=== PATIENT | male | born 1945 | race Caucasian/White ===

== ENCOUNTER 2017-01-22 14:38 | Inpatient (IN) | payer MEDICARE ==
[2017-01-22 16:03] LABS: #Eosinphils 0.2 thou/uL (0.0-0.7); #Lymphocytes 1.7 thou/uL (1.20-3.40); #Monocytes 0.7 thou/uL (0.11-0.59); #Neutrophils 15.7 thou/uL (1.40-6.50); %Basophils 0.1 % (0.0-1.0); %Lymphocytes 9.2 % (21.0-51.0); %Monocytes 3.7 % (0.0-10.0); Hematocrit 40.7 % (42.0-52.0); Mean Platelet Volume 7.1 fL (7.4-10.4); Red Blood Cell (RBC) Count 4.33 mill/uL (4.70-6.10); White Blood Cell (WBC) Count 18.2 thou/uL (4.8-10.8)
--- NOTE | 2017-01-22 16:03 | RAD ---
PORTABLE UPRIGHT FRONTAL CHEST RADIOGRAPH: 01/22/2017 COMPARISON: 05/06/2016 HISTORY: Right-sided chest pain. FINDINGS: Cardiac silhouette is prominent, a stable finding. There is mild pulmonary vascular prominence, stab le as well. No pneumothorax, pleural fluid, focal consolidation, or alveolar edema. IMPRESSION: No acute findings - stable appearance of the chest. POS: [facility]
[2017-01-22] MEDS ORDERED: Adenosine 6 MG/2 ML VIAL ONE (16:04)
[2017-01-22 16:25] LABS: ALT (SGPT) 13 U/L (8-55); AST (SGOT) 16 U/L (5-34); Alkaline Phosphatase 96 U/L (40-150); Anion Gap 16 mmol/L (10-20); BUN (Urea Nitrogen) 21 mg/dL (8.4-25.7); Bilirubin, Total 0.8 mg/dL (0.2-1.2); CK (CPK) 114 U/L (30-200); Calc. Creatinine Clearance 0 mL/min (70-130); Calcium 9.3 mg/dL (7.8-10.44); Carbon Dioxide 23 mmol/L (23-31); Chloride 98 mmol/L (98-107); Estimated GFR-MDRD 47; Globulin 4.2 g/dL (2.4-3.5); Protein, Total 7.5 g/dL (5.8-8.1)
[2017-01-22 16:31] LABS: Troponin I Less than 0.010 ng/mL (< 0.028)
--- NOTE | 2017-01-22 16:59 | CT ---
CT ABDOMEN AND PELVIS WITH IV CONTRAST: History: Right lower quadrant pain. Comparison: 04-03-12 FINDINGS: Mild atelectasis is present at the lung bases. An oval calculus within a nondilated brock at the midp ortion of the left kidney now measures up to 0.9 cm greatest diameter. The liver, spleen, right kidne y, adrenal glands, and pancreas are within normal limits. There is stranding within the fat of the ri ght lower quadrant. Lack of oral contrast limits evaluation of the bowel. There is no evidence of obstruction. Appendix i s thickened and centered within the right lower quadrant inflammation. No free air or free fluid are apparent. Urinary bladder is decompressed. IMPRESSION: 1. Acute appendicitis. 2. Nonobstructing 9 mm left renal calculus. Findings were discussed with Dr. Sandoval in the Emergency Department at 1631 hours. Code CR. POS: [facility]
[2017-01-22] MEDS ORDERED: ISOVUE-370 76%-LOCM 1 ML ONE (17:07)
[2017-01-22 17:10] LABS: Prothrombin Time 40.6 SEC (12.0-14.7)
[2017-01-22 17:11] LABS: PTT 93.3 SEC (22.9-36.1)
[2017-01-22 17:52] LABS: Bilirubin Negative (Negative); Blood, Urine Negative (Negative); Glucose, Urine (Dipstick) Negative (Negative); Ketone, Urine Negative (Negative); Nitrite Negative (Negative); Protein, Urine (Dipstick) Negative (Neg-Trace); Urobilinogen 0.2 mg/dL (0.2-1.0)
[2017-01-22] MEDS ORDERED: HumaLOG 300 UNITS/3 ML VIAL SC PRN (18:13)
[2017-01-22] MEDS ORDERED: Dextrose 5% in Water 1,000 ML IV PRN (18:13)
[2017-01-22] MEDS ORDERED: Acetaminophen 650 MG Suppository PR PRN (18:13)
[2017-01-22] MEDS ORDERED: Nitroglycerin 0.4 MG TAB (25 Tab Bottle) SL PRN (18:13)
[2017-01-22] MEDS ORDERED: Ondansetron HCl/PF 4 MG/2 ML Vial IVP PRN (18:13)
[2017-01-22] MEDS ORDERED: Dextrose 50% Abboject 50 ML SYRINGE SLOW IVP PRN (18:13)
[2017-01-22] MEDS ORDERED: Sodium Chloride 0.9% 1,000 ML IV SCH (18:15)
[2017-01-22] MEDS ORDERED: Ketorolac Tromethamine 30 MG/ML VIAL ONE (19:36)
[2017-01-22] MEDS: Atorvastatin Calcium 40 MG TAB PO SCH (22:07)
[2017-01-22] MEDS: Dronedarone HCl 400 MG TAB PO SCH (22:07)
[2017-01-22] MEDS: Enoxaparin Sodium 40 MG/0.4 ML SYRINGE SC SCH ×2 (22:08→23:16)
[2017-01-22] MEDS: Famotidine/PF 20 mg/2ml Vial SLOW IVP SCH (22:08)
[2017-01-22 22:17] LABS: Troponin I Less than 0.010 ng/mL (< 0.028)
[2017-01-22] MEDS: Meropenem 1 GM in Sodium Chloride 0.9% 100 ML IVPB SCH (23:19)
--- NOTE | 2017-01-22 23:36 | HP ---
REASON FOR ADMISSION: Acute appendicitis, sepsis, brief SVT, resolved. HISTORY OF PRESENT ILLNESS: The patient gives history of having right lower quadrant abdominal pain, which started on . He had gone to see his primary care physician Dr. Mariel Doyle. This abdominal pain to start with was 6/ 10 in intensity. It was getting worse on moving or rolling side to side. If he lay still, the pain was better. He was told to come back if the pain was to get worse. He also saw Dr. Payne on the same day. He had a few lab tests done including LDL, which was 50 and was told that cardiac wan, he was doing good, but the abdominal pain was unrelenting. He had loss of appetite from last 3 days now. He had a temperature of 99.5 degrees at home. Last bowel movement was yesterday and states it is a semi diarrhea like. On arrival in the ER, the patient had a run of SVT up to 162 beats per minute. He had 1 liter of fluid infused and the rate came down to 88 with no other medications given for it. Currently, he has no complaints of palpitations, PND or orthopnea. No complaints of chest pain. PAST MEDICAL AND SURGICAL HISTORY: History of several coronary catheterizations per patient. The last one was 8 years back. He has had angioplasty done 30 years ago. No stents have been placed in him. He has had atrial fibrillation with prior ablation done 2 years ago. Hypertension, sleep apnea, hypothyroidism. CURRENT MEDICATIONS: Takes Lopressor extended release 25 mg daily, Multaq 400 mg twice daily, potassium chloride 20 mEq p.o. daily. Coumadin, the patient takes 3.75 mg on Sunday, Sunday, Sunday and Sunday and 2.5 mg on the rest of the days. Lasix 40 mg on Sunday, Sunday, Sunday, and 20 mg on Sunday, , Sunday, and Sunday. Atorvastatin 40 mg daily, losartan with hydrochlorothiazide 50/12.5 mg daily, Zetia 10 mg daily, metformin 500 mg daily , vitamin D 12,000 units daily, vitamin B12 of 5000 mcg daily, Synthroid 100 mcg daily. ALLERGIES: CODEINE and LATEX. PERSONAL HISTORY: Does not abuse alcohol or drugs. No history of smoking. Lives with his . FAMILY HISTORY: Mom of leukemia at the age of 57 years. Father of [place] at the age of 76 years. REVIEW OF SYSTEMS: The following complete review of systems was negative, unless otherwise mentioned in the HPI or below: Constitutional: Weight loss or gain, ability to conduct usual activities. Skin: Rash, itching. Eyes: Double vision, pain. ENT/Mouth: Nose bleeding, neck stiffness, pain, tenderness. Cardiovascular: Palpitations, dyspnea on exertion, orthopnea. Respiratory: Shortness of breath, wheezing, cough, hemoptysis, fever or night sweats. Gastrointestinal: Poor appetite, abdominal pain, heartburn, nausea, vomiting, constipation, or diarrhea. Genitourinary: Urgency, frequency, dysuria, nocturia. Musculoskeletal: Pain, swelling. Neurologic/Psychiatric: Anxiety, depression. Allergy/Immunologic: Skin rash, bleeding tendency. PHYSICAL EXAMINATION: GENERAL: The patient is a 71-year-old male who is currently not in any acute distress. VITAL SIGNS: Blood pressure 100/68, pulse 84 per minute, respiratory rate 20 per minute, temperature 97.7 degrees Fahrenheit, saturating 94% on room air. NECK: Supple, no elevated JVD. HEENT: Eyes: Extraocular muscles are intact. Pupils are reacting to light. Oral cavity: Mucous membranes are dry. No exudates or congestion. CARDIOVASCULAR: S1, S2 heard. Regular rhythm. RESPIRATORY: Air entry 1+ bilateral. Scattered rhonchi plus bilateral. No rales. ABDOMEN: There is mild tenderness in right lower quadrant, no guarding or rigidity. Bowel sounds are heard. EXTREMITIES: There is mild peripheral edema, no calf tenderness. VASCULAR SYSTEM: Peripheral pulses 1+ bilateral, no ischemic ulcerations or gangrene. CENTRAL NERVOUS SYSTEM: No gross focal deficits seen. The patient is alert, awake, oriented x3. PSYCHIATRIC: The patient's mood is euthymic. No hallucinations or delusions. LABORATORY AND X-RAY FINDINGS: Abdominal and pelvic CAT scan done shows findings of acute appendicitis. There is nonobstructing 9 mm left renal calculus. Chest x-ray done shows no acute findings. Potassium 3.0. Serum bicarbonate 23, BUN 21, creatinine 1.46, glucose 192. Cardiac enzymes x2 is negative. Albumin is 3.3. PT, INR are 40, 4.0 and PTT is 93. White count of 18, H&H are 13 and 40, platelet count 270 with 86% neutrophils. Initial EKG showed SVT at 162 beats per minute. A subsequent EKG done showed 88 beats per minute of normal sinus rhythm. No gross ST-T wave changes. CLINICAL IMPRESSION AND PLAN: The patient will be admitted to telemetry for sepsis, acute appendicitis, brief run of SVT and normal rhythm at present. I have discussed his findings with Dr. Booker. The plan is to treat him medically in view of multiple medical issues he has. We will give him one dose of 10 mg of vitamin K p.o. Otherwise, he will be kept n.p.o. for now. He will be on meropenem 1 gram q.8 hourly and normal saline at 80 mL per hour. He will be n.p.o. except medications. We will continue his atorvastatin, Multaq, Zetia , Toprol-XL as before. He will be on Accu-Cheks a.c. and at bedtime with mild to moderate Humalog coverage. We will continue to closely monitor him on telemetry. Dr. Payne, his salad chef will be consulted as well. SHANNAN
--- NOTE | 2017-01-22 23:52 | CON ---
DATE OF CONSULTATION: 01/22/2017 CHIEF COMPLAINT: Appendicitis. HISTORY OF PRESENT ILLNESS: Patient is a morbidly obese 71-year-old white male. He is known to myse from removal of prior back cysts. He gives a history of progressive lower abdominal pain over the course of the past 3 days. He denies nausea or vomiting. He denies fever. He presented to the [facility] today secondary to progressive pain localizing now to the right lower quadrant. Upon arrival here to the emergency room, he was noted to have a heart rate of about a 180. He was gi burke intravenous fluid and seemed to cardiovert. Patient has a known history of paroxysmal atrial fib rillation and he is on anticoagulation for this. Evaluation in the emergency room per Dr. Sandoval revealed elevated white blood cell count of 18.2 with hemoglobin of 13.9. Chemistry profile revealed minor electrolyte abnormalities. Creatinine slightl y elevated at 1.46. His coagulation panel reveals a PT of 40.6 with an INR of 4.0. PAST MEDICAL HISTORY: 1. Paroxysmal atrial fibrillation on anticoagulation. 2. Morbid obesity with a BMI of approximately 50. 3. Hypertension, on multiple medications. 4. Hypothyroidism. 5. Dyslipidemia. 6. Obstructive sleep apnea on CPAP. PAST SURGICAL HISTORY: Cardiac catheterization and angioplasty. ALLERGIES: CODEINE AND LATEX. CURRENT MEDICATIONS: Lipitor, digoxin, Multaq, Zetia, Lasix, levothyroxine, losartan/hydrochlorothia zide, Toprol, sublingual nitroglycerin p.r.n., and Coumadin 2.5 mg daily, except for Sunday when he t akes 5 mg. PERSONAL/SOCIAL HISTORY: He is currently single with one child and presents with his girlfriend/fiel cat. He denies tobacco or alcohol use. 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 REVIEW OF SYSTEMS: Otherwise, unremarkable. FAMILY HISTORY: Noncontributory. PHYSICAL EXAMINATION: VITAL SIGNS: He is afebrile, pulse is currently 85. GENERAL: He is a well-developed, well-nourished, pleasant, morbidly obese white male resting in bed in no acute distress. He is alert and oriented x3. HEAD, EYES, EARS, NOSE, AND THROAT: Unremarkable. NECK: Supple. LUNGS: Clear to auscultation. CARDIAC: Regular rate and rhythm currently. ABDOMEN: Morbidly obese. He has tenderness upon palpation of the right side of his abdomen that is worse in the right lower quadrant. Bowel sounds are quiet currently and appeared probably to be hypo active. EXTREMITIES: Unremarkable. ASSESSMENT: Patient with CT proven appendicitis. The CT scan that shows extensive straining of the surrounding fat potentially consistent with a phlegmon. The appendix is not perforated. Given his m orbid obesity, his anticoagulation, his cardiac morbidities, then I feel he is a good candidate for n onoperative management of his appendicitis. He will be admitted to the hospital and placed on IV ant ibiotics. He will be n.p.o. for the time being, although I would anticipate advanced into a clear li quid diet tomorrow. We will follow serial laboratory exams and physical examination to document improvement of his append icitis. I discussed all of this in detail with the patient as well as the likelihood that he will high ve resolution of his appendicitis and that there is a possibility of recurrent appendicitis, but it i s not very high.
[2017-01-23 05:13] LABS: #Eosinphils 0.2 thou/uL (0.0-0.7); #Lymphocytes 1.6 thou/uL (1.20-3.40); #Monocytes 0.5 thou/uL (0.11-0.59); #Neutrophils 8.9 thou/uL (1.40-6.50); %Basophils 0.2 % (0.0-1.0); %Eosinophils 1.6 % (0.0-10.0); %Lymphocytes 14.4 % (21.0-51.0); %Monocytes 4.3 % (0.0-10.0); Mean Platelet Volume 7.1 fL (7.4-10.4); Red Blood Cell (RBC) Count 3.65 mill/uL (4.70-6.10); White Blood Cell (WBC) Count 11.1 thou/uL (4.8-10.8)
[2017-01-23 05:24] LABS: Anion Gap 11 mmol/L (10-20); BUN (Urea Nitrogen) 21 mg/dL (8.4-25.7); Calc. Creatinine Clearance 106 mL/min (70-130); Calcium 8.7 mg/dL (7.8-10.44); Carbon Dioxide 26 mmol/L (23-31); Chloride 101 mmol/L (98-107); Estimated GFR-MDRD 56
[2017-01-23] MEDS: Meropenem 1 GM in Sodium Chloride 0.9% 100 ML IVPB SCH ×2 (05:57→16:48)
[2017-01-23] MEDS: NS 0.9% w/ 20 MEQ KCL 1,000 ML/1,000 ML BAG IV SCH ×2 (07:38→21:24)
[2017-01-23] MEDS: Dronedarone HCl 400 MG TAB PO SCH ×2 (09:15→21:25)
[2017-01-23] MEDS: Ezetimibe 10 MG TAB PO SCH (09:16)
[2017-01-23] MEDS: Famotidine/PF 20 mg/2ml Vial SLOW IVP SCH ×2 (09:16→21:24)
--- NOTE | 2017-01-23 11:43 | PDOC.PN ---
- Subjective Encounter Start Date: 01/23/17 Encounter Start Time: 11:35 Subjective: f/u for acute appendicitis managed non-operatively per surgery recs. -: Also with supratherapeutic INR 4 on admit with chronic Coumadin. - Objective Resuscitation Status: Resuscitation Status FULL:Full Resuscitation Vital Signs & Weight: Vital Signs (12 hours) Temp Pulse Resp BP Pulse Ox 01/23/17 08:01 98.2 F 62 20 134/61 92 L 01/23/17 08:00 98.2 F 62 20 92 L 01/23/17 04:15 93 L 01/23/17 04:00 97.7 F 55 L 20 124/59 L 93 L 01/23/17 00:38 93 L 01/23/17 00:00 98.8 F 56 L 16 118/67 93 L Weight Weight 311 lb I&O: 01/22/17 01/23/17 01/24/17 06:59 06:59 06:59 Intake Total 634 Output Total 525 Balance 109 Result Diagrams: 01/23/17 04:11 01/23/17 04:11 Additional Labs: Accuchecks 01/23/17 01/23/17 06:18 00:07 POC Glucose 99 100 Microbiology 01/22/17 15:53 Venous blood - Left Arm Blood Culture - Preliminary Specimen has been received and culture in progress. No Growth to date. 01/22/17 15:53 Venous blood - Left Arm Blood Culture - Preliminary Specimen has been received and culture in progress. No Growth to date. Laboratory Tests 01/22/17 01/22/17 01/22/17 15:52 15:53 15:53 WBC 18.2 H Hgb 13.9 L Neutrophils % 86.0 H PT 40.6 H INR 4.0 Potassium 3.0 L Radiology Reviewed by me: Yes (CT abd/pelv - fat stranding in RLQ, thickened appendix) EKG Reviewed by me: Yes (Tele - SR in 60's) Phys Exam - Physical Examination Constitutional: NAD HEENT: PERRLA, oral pharynx no lesions Neck: no JVD, supple Respiratory: no wheezing, clear to auscultation bilateral Cardiovascular: RRR Gastrointestinal: soft, positive bowel sounds chronic venous stasis changes Musculoskeletal: no edema, pulses present Neurological: normal sensation, moves all 4 limbs Psychiatric: A&O x 3 Skin: normal turgor, cap refill <2 seconds Dx/Plan (1) Acute appendicitis Code(s): K35.80 - UNSPECIFIED ACUTE APPENDICITIS Status: Acute Comment: Non- operative mgmt per Gen surgery, continue Meropenem 1gm IV q8h, serial abd exams (2) RLQ abdominal pain Code(s): R10.31 - RIGHT LOWER QUADRANT PAIN Status: Acute Comment: Secondary to #1, pain control, see above (3) SVT (supraventricular tachycardia) Code(s): I47.1 - SUPRAVENTRICULAR TACHYCARDIA Status: Acute Comment: Brief, non-sustained episode, currently SR (4) Hypokalemia Code(s): E87.6 - HYPOKALEMIA Status: Acute Comment: KCL 40meq BID, repeat K + level in am (5) Supratherapeutic INR Code(s): R79.1 - ABNORMAL COAGULATION PROFILE Status: Acute Comment: Hold Coumadin, check INR now, hold all anticoagulation (6) Chronic anticoagulation Code(s): Z79.01 - BOILER OUT (CURRENT) USE OF ANTICOAGULANTS Status: Chronic Comment: Hold anticoagulation give elevated INR (7) DM II (diabetes mellitus, type II), controlled Code(s): E11.9 - TYPE 2 DIABETES MELLITUS WITHOUT COMPLICATIONS Status: Chronic Comment: Continue Glipizide 5mg daily, ISS - Plan continue antibiotics, 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
[2017-01-23 12:09] LABS: Prothrombin Time 40.3 SEC (12.0-14.7)
[2017-01-23 12:10] LABS: PTT 109.3 SEC (22.9-36.1)
[2017-01-23] MEDS ORDERED: Potassium Chloride 20 MEQ TAB PO SCH (12:15)
[2017-01-23] MEDS: Enoxaparin Sodium 40 MG/0.4 ML SYRINGE SC SCH (12:51)
[2017-01-23] MEDS ORDERED: Morphine 4 MG/ML VIAL SLOW IVP PRN (13:00)
--- NOTE | 2017-01-23 14:01 | PRG ---
DATE OF SERVICE: 01/23/2017 SUBJECTIVE: Mr. Nava is hospital day #2 in treatment of acute appendicitis. As detailed on his ad mission consultation, I recommend nonoperative treatment. He has been on meropenem since admission. He has no complaints. He notes that his pain seems to be improved. He has been on ice chips, which he tolerated uneventfully. PHYSICAL EXAMINATION: VITAL SIGNS: Today, he is afebrile with a temperature of 98.2. Pulse is 60, blood pressure 117/57. LUNGS: Clear to auscultation. ABDOMEN: Obese but soft, with persistent right-sided tenderness to palpation. LABORATORY STUDIES: Reveals white blood cell count has dropped from 18.2 down to 11.1. Chemistry pr ofile reveals hypokalemia with potassium of 3.0. ASSESSMENT: The patient is stable with acute appendicitis being treated conservatively with IV antib iotics. I will advance him to clear liquids today. His IV fluids will be changed to normal saline w ith potassium to treat his hypokalemia. We will recheck his laboratory studies tomorrow. I have enc ouraged him to be active in ambulating regularly. He has apparently had no episodes of recurrent arrhythmia since admission (his heart rate was over 18 0 in the emergency room).
[2017-01-23] MEDS ORDERED: MEROPENEM 1 GM/50 ML 1 GM in Premix Bag 1 BAG IVPB SCH (16:45)
[2017-01-23] MEDS: Potassium Chloride 20 MEQ TAB PO SCH (17:55)
[2017-01-23] MEDS: Acetaminophen 325 MG TAB PO PRN (17:57)
[2017-01-23] MEDS: Atorvastatin Calcium 40 MG TAB PO SCH (21:26)
[2017-01-23] MEDS: MEROPENEM 1 GM/50 ML 1 GM in Premix Bag 1 BAG IVPB SCH (21:26)
[2017-01-24] MEDS: MEROPENEM 1 GM/50 ML 1 GM in Premix Bag 1 BAG IVPB SCH ×3 (05:47→21:14)
[2017-01-24 05:49] LABS: Prothrombin Time 39.8 SEC (12.0-14.7)
[2017-01-24 06:00] LABS: Band 3 % (5-11); Hematocrit 36.6 % (42.0-52.0); Mean Platelet Volume 7.3 fL (7.4-10.4); Neutrophil 71 % (42-75); Red Blood Cell (RBC) Count 3.81 mill/uL (4.70-6.10); White Blood Cell (WBC) Count 9.5 thou/uL (4.8-10.8)
[2017-01-24] MEDS: Levothyroxine Sodium 100 MCG TAB PO SCH (06:00)
--- NOTE | 2017-01-24 06:07 | CON ---
DATE OF CONSULTATION: 01/23/2017 HISTORY: Hussein Nava is a 71-year-old white male that I have followed since . In 1979, he had paroxysmal atrial tachycardia but stopped smoking and started dipping. 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 Valsalva maneuvers seem to diminish that. He had 2 more episodes during the day and had a more intense episode in the early evening, went to the emergency room. His chest pain was relieved with 2 sublingual nitroglycerins. EKG at that time showed marked ST segment depression in V2 through V4, which then returned to normal. Ultimately , he underwent cardiac catheterization by Dr. Le. He was found to have 95% circumflex lesion as well as 30% LAD lesion. There is minimal plaquing in the right coronary artery. He was placed on increased cardiac medications. He denied any further episodes of discomfort while in the hospital. He was discharged and began to have severe episodes of pain at home. The first day, he went back to work, he had chest pain most of the night after that. He tried to walk one block and again had the discomfort. He was referred for further evaluation and I took him back to the cardiac catheterization lab and he underwent repeat catheterization. There was 30% mid LAD, 95% mid circumflex , normal ramus, normal right coronary artery. There was normal left ventricular function. He underwent PTCA of the circumflex lesion with a reduction from 95% to 30%. With the balloon inflation, he had his usual chest discomfort accompanied by ST segment depression in V2 through V4. In 09/1993, he had a negative treadmill. He had negative treadmills in 1994, 1995, 1998. I did not see him again until 08/2003 when he presented complaining of bilateral hand paresthesias which were worse at night. Wrist splints did not seem to help. He did not have any chest discomfort. He underwent dobutamine echo testing. He had no chest pain or ST segment changes. Echo revealed hypokinesis of the inferior wall with an ejection fraction of 50 %-55% without evidence of stress-induced ischemia. He then had an episode in 08/2004, when he went to the emergency room with supraventricular tachycardia with a rate of 177 per minute. He was given adenosine 6 mg IV and converted. The episode lasted 30 minutes. He also had chest pressure associated with that. He was drinking 2 cups of coffee that day and was also on Norvasc. That was discontinued, instead, he was placed on Cardizem. He did have [address] segment depression on his EKG with the supraventricular tachycardia. He underwent adenosine Cardiolite testing and was found to have a small area of ischemia in the inferolateral wall and normal wall motion, ejection fraction of 65%. He underwent repeat catheterization due to the abnormal Cardiolite and an ST segment depression with his SVT. At catheterization, he had mild inferobasal hypokinesis with an ejection fraction of 55%-60%. There was a 20% proximal LAD, 40%-50% mid LAD. The circumflex at the site of March 1993, PTCA only showed mild plaquing. There was also a small plaque in the right coronary artery. Angio-Seal was placed. He continued to do well after that being seen periodically in the office. In , he went to see Dr. Pk Moya for evaluation of dysuria as well as fever. He is noted to have a very rapid and irregular heartbeat and was sent to the emergency room and was found to be in atrial fibrillation. He was placed on intravenous Cardizem and ultimately that was stopped due to bradycardia. He denied any palpitations, chest discomfort, or shortness of breath. He was admitted. Cardiac enzymes were unremarkable. TSH was very low at that time 0.005. Echo revealed normal left ventricular function with ejection fraction of 50%-55%, small pericardial effusion, trace tricuspid regurgitation, and mild mitral regurgitation. He had E. coli growing in his urine. He was placed on Coumadin and started on Multaq 400 b.i.d. He underwent transesophageal echo which revealed no evidence of thrombosis and electrical cardioversion and returned to sinus rhythm with 200 joules. After that, he would follow up in the office every 6 months, continued to remain in sinus rhythm. Then, in 12/2014, he was sitting, reading a magazine, and noted some chest pressure. He took his blood pressure and noted that his heart rate was 150. He had mild shortness of breath with that and ultimately came to the emergency room and was found to have heart rates in the 150s, placed on Cardizem drip. Once his rate slowed, his chest pressure seemed to resolve. He was given Lovenox 1 mg/kg; however, he had already been adequately anticoagulated with Coumadin and that was stopped. He was seen by Dr. Owusu during that admission. The decision was made to undergo transesophageal echo and with electrical cardioversion, returned to sinus rhythm. He has not had any documented atrial fibrillation since that time, although it looks as if he was in supraventricular tachycardia when he presented with appendicitis yesterday. He was last seen in the office 5 days ago and in general, had no complaints. He now presents with right lower quadrant abdominal pain and was found to have appendicitis and initially being treated with antibiotics. His Coumadin also has been stopped. PAST MEDICAL HISTORY: Hypertension; hyperlipidemia; obesity; paroxysmal atrial fibrillation; history of supraventricular tachycardia; coronary artery disease, status post PTCA of the circumflex in 1993; obstructive sleep apnea; morbid obesity; hypothyroidism, diabetes. OPERATIONS: PTCA of the proximal circumflex. HOME MEDICATIONS: Atorvastatin 40 q.p.m., digoxin 0.125 daily, Multaq 1 tablet 400 mg b.i.d., Zetia 10 mg daily, furosemide 40 mg p.r.n., glipizide 5 mg daily , levothyroxine 100 mcg daily, losartan/hydrochlorothiazide 50/12.5 daily, metoprolol 25 daily, Nitrostat p.r.n., KCl 20 mEq p.r.n., thyroid (pork) 1 tablet daily, warfarin. ALLERGIES: ADHESIVE TAPE, CODEINE, AND LATEX. SOCIAL HISTORY: He has quit smoking approximately 25 years ago, and then dipped snuff, but ultimately stopped that also. He does not drink. FAMILY HISTORY: Father of [place] at age 60. REVIEW OF SYSTEMS: A 12-point review of systems is otherwise unremarkable. PHYSICAL EXAMINATION: VITAL SIGNS: Blood pressure 129/59, pulse of 61. HEENT: PERRL. NECK: Supple. CHEST: Clear. CARDIAC: S1 and S2 are normal, without any S3, S4, or murmurs. ABDOMEN: Obese. Normal bowel sounds. Some tenderness in the right lower quadrant. EXTREMITIES: Revealed no clubbing, cyanosis, or edema. NEUROLOGIC: Grossly intact. SKIN: Warm and dry. LABORATORY AND X-RAY FINDINGS: EKG on admission revealed supraventricular tachycardia with a rate of 162 per minute, left axis deviation, nonspecific ST and T-wave changes. Hemoglobin 11.8, hematocrit 35.8, white count 11,100, platelets 245,000. INR 3.9. Sodium 135, potassium 3.0, chloride 101, carbon dioxide 26, BUN 21, creatinine 1.26. Cardiac enzymes are unremarkable. IMPRESSION: 1. Acute appendicitis. 2. Paroxysmal atrial fibrillation, although he has remained in sinus rhythm, probably since last cardioversion in 12/2014. 3. History of supraventricular tachycardia. 4. Coronary artery disease, status post percutaneous transluminal coronary angioplasty of the proximal circumflex in 1993. 5. Hypercholesterolemia. 6. Hypertension. 7. Former smoker and snuff user. 8. Morbid obesity. 9. Positive family history. 10. Obstructive sleep apnea. 11. Hypothyroidism. PLAN: I agree with discontinuation of the Coumadin at this time since operative therapy for his appendicitis may be required. Otherwise, I will continue on his usual medications. We will follow the patient with you. SHANNAN
[2017-01-24 06:13] LABS: Anion Gap 14 mmol/L (10-20); BUN (Urea Nitrogen) 13 mg/dL (8.4-25.7); Calc. Creatinine Clearance 140 mL/min (70-130); Calcium 8.6 mg/dL (7.8-10.44); Carbon Dioxide 23 mmol/L (23-31); Chloride 106 mmol/L (98-107); Estimated GFR-MDRD 77
[2017-01-24] MEDS: Digoxin 0.125 MG TAB PO SCH (09:41)
[2017-01-24] MEDS: Potassium Chloride 20 MEQ TAB PO SCH ×2 (09:41→18:14)
[2017-01-24] MEDS: Dronedarone HCl 400 MG TAB PO SCH ×2 (09:41→21:14)
[2017-01-24] MEDS: Ezetimibe 10 MG TAB PO SCH (09:41)
[2017-01-24] MEDS: Cyanocobalamin (Vitamin B-12) 1,000 MCG TAB PO SCH (09:42)
[2017-01-24] MEDS: Famotidine/PF 20 mg/2ml Vial SLOW IVP SCH ×2 (09:42→21:21)
--- NOTE | 2017-01-24 11:40 | PQF ---
LAZ ENGLISHALEXANDRA DO [id number] CLINICAL DOCUMENTATION IMPROVEMENT CLARIFICATION FORM: ICD-10 Updated PLEASE DO AN ADDENDUM TO THE PROGRESS NOTE WITH ANY DOCUMENTATION UPDATES OR ADDITIONS AND CARRY THROUGH TO DC SUMMARY. THANK YOU. DATE: 01-24-17 ATTN: DR. DUVALL Please exercise your independent, professional judgment in responding to the clarification form. Clinical indicators are provided on the bottom of this form for your review Please check appropriate box(s) to clarify if the following diagnosis has been ruled in our ruled out: SEPSIS Please check appropriate box(s): [ ] Ruled in diagnosis [ ] Continue to treat [ ] Resolved [ x ] Ruled out diagnosis [ ] Cannot rule out diagnosis [ ] Other diagnosis [ ] Unable to determine For continuity of documentation, please document condition throughout progress notes and discharge summary. Thank You. CLINICAL INDICATORS - SIGNS / SYMPTOMS / LABS ER: ACUTE APPENDICITIS PULSE 157 - 166; RESP 01-23 PULSE 56 2-18 WBC 18.2 H&P: ACUTE APPENDICITIS; SEPSIS; BRIEF SVT RISK FACTORS H&P: ACUTE APPENDICITIS TREATMENTS: CPOE - MAR: IVF 01-23 MERREM 01-22 / 01-24 CARDIO CONSULT FOR SVT SURGERY CONSULT FOR APPENDICITIS THANK YOU, AURA (This form is maintained as a part of the permanent medical record) 2015 [employer]. All Rights Reserved Aura Dyson RN, BS [email or web address] [facility]
--- NOTE | 2017-01-24 14:31 | PRG ---
DATE OF SERVICE: 01/24/2017 HISTORY OF PRESENT ILLNESS: Mr. Nava is hospital day #3 in treatment of acute appendicitis. He is undergoing nonoperative treatment with IV antibiotics. He has been tolerating clear liquids. He no evie that he has developed sort of crampy mid abdominal pain that he feels from time to time that seem s to be separate from his right lower quadrant pain. He believes his right lower quadrant discomfort is better. He has not vomited. He has had a bowel movement which he notes was soft. PHYSICAL EXAMINATION: VITAL SIGNS: He is afebrile, maximum temperature is 98.0, pulse 60, blood pressure 125/58. LUNGS: Clear to auscultation. ABDOMEN: Obese. He has some right lower quadrant discomfort, but it is significantly less than at t he time of admission. Bowel sounds are present and normoactive. LABORATORY DATA: His INR remains elevated at 3.9 today. White blood cell count is down within the n ormal range at 9.5. Hemoglobin stable at 12.2. Basic metabolic panel is normal. ASSESSMENT: Patient seems to be doing well with nonoperative treatment of appendicitis. Recommend c ontinuation of intravenous meropenem. If his examination and laboratory studies remain stable tomorr ow, I would anticipate discharge home at that time on oral antibiotics. I will advance his diet up t o full liquid diet today.
[2017-01-24] MEDS: NS 0.9% w/ 20 MEQ KCL 1,000 ML/1,000 ML BAG IV SCH ×2 (15:43→21:28)
[2017-01-24] MEDS: Acetaminophen 325 MG TAB PO PRN (18:13)
--- NOTE | 2017-01-24 18:59 | PDOC.PN ---
- Subjective Encounter Start Date: 01/24/17 Encounter Start Time: 18:50 Subjective: f/u for acute appendicitis non-operatively managed with IV abx. Overall -: doing well and minimal pain. Diet advanced today. No fever or chills. - Objective Resuscitation Status: Resuscitation Status FULL:Full Resuscitation MAR Reviewed: Yes Vital Signs & Weight: Vital Signs (12 hours) Temp Pulse Resp BP BP Pulse Ox 01/24/17 16:00 98.2 F 61 20 144/67 H 94 L 01/24/17 12:00 97.9 F 60 20 125/58 L 96 01/24/17 09:41 56 L 01/24/17 07:40 97.7 F 56 L 15 97 01/24/17 07:38 97.7 F 56 L 15 147/70 H 97 Weight Admit Weight 310 lb 11.2 oz Weight 314 lb 12.8 oz I&O: 01/23/17 01/24/17 01/25/17 06:59 06:59 06:59 Intake Total 634 2500 2117 Output Total 525 1525 600 Balance 621 083 6877 Result Diagrams: 01/24/17 04:26 01/24/17 04:26 Additional Labs: Accuchecks 01/24/17 01/24/17 01/24/17 16:23 11:04 06:05 POC Glucose 124 H 192 H 110 01/23/17 01/23/17 20:35 18:00 POC Glucose 198 H 120 H Microbiology 01/22/17 15:53 Venous blood - Left Arm Blood Culture - Preliminary Specimen has been received and culture in progress. No Growth to date. 01/22/17 15:53 Venous blood - Left Arm Blood Culture - Preliminary Specimen has been received and culture in progress. No Growth to date. 01/22/17 15:53 Venous blood - Left Arm Blood Culture - Preliminary NO GROWTH AT 48 HOURS 01/22/17 15:53 Venous blood - Left Arm Blood Culture - Preliminary NO GROWTH AT 48 HOURS Laboratory Tests 01/22/17 01/22/17 01/22/17 15:52 15:53 15:53 WBC 18.2 H Hgb 13.9 L Neutrophils % 86.0 H PT 40.6 H INR 4.0 Potassium 3.0 L Creatinine 1.46 H 12/19/17 12/19/17 12/19/17 04:11 04:11 11:26 WBC 11.1 H Hgb Neutrophils % PT INR 3.9 Potassium Creatinine 1.26 01/24/17 04:26 WBC Hgb Neutrophils % PT INR 3.9 Potassium Creatinine EKG Reviewed by me: Yes (Tele - SR) Phys Exam - Physical Examination Constitutional: NAD HEENT: PERRLA, oral pharynx no lesions Neck: no JVD, supple Respiratory: no wheezing, clear to auscultation bilateral Cardiovascular: RRR mild TTP in RLQ Gastrointestinal: soft, no distention, positive bowel sounds Musculoskeletal: no edema, pulses present Neurological: normal sensation, moves all 4 limbs Psychiatric: A&O x 3 Skin: normal turgor, cap refill <2 seconds Dx/Plan (1) Acute appendicitis Code(s): K35.80 - UNSPECIFIED ACUTE APPENDICITIS Status: Acute Comment: Non- operative mgmt per Gen surgery, continue Meropenem 1gm IV q8h, serial abd exams , consider re-imaging in am (2) RLQ abdominal pain Code(s): R10.31 - RIGHT LOWER QUADRANT PAIN Status: Acute Comment: Secondary to #1, pain control, see above (3) SVT (supraventricular tachycardia) Code(s): I47.1 - SUPRAVENTRICULAR TACHYCARDIA Status: Acute Comment: Brief, non-sustained episode, currently SR (4) Hypokalemia Code(s): E87.6 - HYPOKALEMIA Status: Acute Comment: KCL 40meq BID, repeat K + level in am, improved (5) Supratherapeutic INR Code(s): R79.1 - ABNORMAL COAGULATION PROFILE Status: Acute Comment: Hold Coumadin, check INR now, hold all anticoagulation (6) Chronic anticoagulation Code(s): Z79.01 - HAND ETCHER (CURRENT) USE OF ANTICOAGULANTS Status: Chronic Comment: Hold anticoagulation give elevated INR (7) DM II (diabetes mellitus, type II), controlled Code(s): E11.9 - TYPE 2 DIABETES MELLITUS WITHOUT COMPLICATIONS Status: Chronic Comment: Continue Glipizide 5mg daily, ISS - Plan continue antibiotics, out of bed/ambulate, DVT proph w/SCDs Stable overall -: Continue Meropenem 1gm IV q8h -: Continue IVF's another 24h -: Hold Coumadin due to supratherapeutic INR -: AM lab: CBC, PT/INR * .
[2017-01-24] MEDS: Atorvastatin Calcium 40 MG TAB PO SCH (21:14)
[2017-01-25 05:26] LABS: #Eosinphils 0.3 thou/uL (0.0-0.7); #Lymphocytes 1.8 thou/uL (1.20-3.40); #Monocytes 0.7 thou/uL (0.11-0.59); #Neutrophils 7.5 thou/uL (1.40-6.50); %Eosinophils 2.6 % (0.0-10.0); %Lymphocytes 17.5 % (21.0-51.0); %Monocytes 6.5 % (0.0-10.0); Hematocrit 34.2 % (42.0-52.0); Mean Platelet Volume 7.2 fL (7.4-10.4); Red Blood Cell (RBC) Count 3.56 mill/uL (4.70-6.10); White Blood Cell (WBC) Count 10.2 thou/uL (4.8-10.8)
[2017-01-25 05:34] LABS: Prothrombin Time 40.6 SEC (12.0-14.7)
[2017-01-25] MEDS: Levothyroxine Sodium 100 MCG TAB PO SCH (05:34)
[2017-01-25] MEDS: MEROPENEM 1 GM/50 ML 1 GM in Premix Bag 1 BAG IVPB SCH ×2 (05:34→14:47)
[2017-01-25 06:23] VITALS: BMI 48.2
--- NOTE | 2017-01-25 07:59 | PRG ---
DATE OF SERVICE: 01/25/2017 HISTORY OF PRESENT ILLNESS: Mr. Nava is hospital day #4 in nonoperative treatment of acute appendi citis. He has been on intravenous meropenem since admission. He has been afebrile since admission. His white blood cell count was initially elevated, had normalized by yesterday and remains normal t maggie. The patient is tolerating his full liquid diet uneventfully. He notes significantly less abdo yamel discomfort. PHYSICAL EXAMINATION: VITAL SIGNS: He is afebrile with temperature 98.3. Vital signs are entirely normal. LUNGS: Clear to auscultation. ABDOMEN: Morbidly obese, but soft. He has some subjective right lower quadrant discomfort, but no f ocal guarding. Bowel sounds are within normal limits. ASSESSMENT: The patient is doing well with nonoperative treatment of his appendicitis. He appears t o be recuperating appropriately. He is safe to be discharged home at this time on oral antibiotics. Although he has been on meropenem in the hospital, I would recommend that he be discharged on Levaqu in and Flag for a 10 day course outpatient. I would like him to follow up with me in my office in about a week and a half (sometime just after the first of the year). I have cautioned him that it is possibly that he could have a recurrence of his appendicitis either in the short term or in the [facility] and if this happened he would require an appendectomy. I have asked him to contact me if he high s any problems or concerns before his followup.
[2017-01-25] MEDS: Ezetimibe 10 MG TAB PO SCH (09:09)
[2017-01-25] MEDS: Cyanocobalamin (Vitamin B-12) 1,000 MCG TAB PO SCH (09:11)
[2017-01-25] MEDS: Potassium Chloride 20 MEQ TAB PO SCH ×2 (09:12→17:01)
[2017-01-25] MEDS: Dronedarone HCl 400 MG TAB PO SCH (09:12)
[2017-01-25] MEDS: Famotidine/PF 20 mg/2ml Vial SLOW IVP SCH (09:12)
[2017-01-25] MEDS: Digoxin 0.125 MG TAB PO SCH (09:12)
--- NOTE | 2017-01-25 14:21 | DIS ---
DATE OF ADMISSION: 01/22/2017 DATE OF DISCHARGE: 01/25/2017 DISCHARGE DIAGNOSES: 1. Acute appendicitis nonoperative management, improved. 2. Right lower quadrant abdominal pain secondary to #1, improved. 3. Supraventricular tachycardia, nonsustained and resolved. 4. Hypokalemia, resolved. 5. Supratherapeutic INR on chronic Coumadin therapy. 6. Chronic anticoagulation with Coumadin. 7. Diabetes mellitus type 2, stable. CONSULTATIONS: Dr. Booker with General Surgery Service. Dr. Payne with Cardiology Service. PERTINENT LABORATORY AND X-RAY FINDINGS: Potassium ranged between 3.0-3.7. Estimated GFR ranged bet ween 47-77. Troponin negative x3. LFTs within normal limits. CBC showed a white blood cell count r anging between 9.5-18.2, hemoglobin ranged between 11.7-13.9, INR ranged between 3.9-4.0. Blood cult ures x2 dated 01/22/2017 showed no growth at 48 hours. Portable chest x-ray dated 01/22/2017 showed no acute cardiopulmonary process. CT of the abdomen and pelvis dated 01/22/2017 showed acute appendi citis with stranding in the right lower quadrant region. Nonobstructive 9 mm left renal calculus not ed. HOSPITAL COURSE: The patient was admitted to the telemetry unit after initially presenting with incr eased abdominal pain of the right lower quadrant with CT imaging confirming evidence of acute appendi citis without perforation. The patient was evaluated by the General Surgery Service with recommendat ions for nonoperative management given patient's multiple comorbid status. The patient was placed on IV meropenem 1 gram q.8 hours and continued on this regimen throughout the hospital course. The pat ient underwent serial abdominal exams during the hospital course with overall improvement in clinical findings. The patient's initial leukocytosis had resolved with antibiotic therapy and transitioned to regular oral intake and full liquid diet. The patient was noted at the time of initial presentati on with nonsustained supraventricular tachycardia, resolving after institution of intravenous fluids. The patient also was held on his regular regimen of Coumadin with an INR sustaining in the 3.9-4.0 range throughout the hospital course. Recommendations are for outpatient followup. His PT/INR monit oring and to hold Coumadin until repeat PT/INR evaluated by his primary care provider. Overall, the patient did remain clinically stable throughout the hospital course, tolerating full liquid diet. Th e patient's vital signs are stable and patient ready for discharge 01/25/2017. DISCHARGE MEDICATIONS: 1. Levaquin 500 mg 1 tab p.o. daily x10 days. 2. Flagyl 500 mg 1 tab p.o. t.i.d. x10 days. 3. Lipitor 40 mg 1 tab p.o. at bedtime. 4. Vitamin D3 12,000 units p.o. daily. 5. Vitamin B12 5000 mcg p.o. daily. 6. Digoxin 0.125 mg p.o. daily. 7. Multaq 400 mg p.o. b.i.d. 8. Zetia 10 mg p.o. daily. 9. Lasix 40 mg p.o. daily p.r.n. 10. Glipizide 5 mg one tablet p.o. daily. 11. Levothyroxine 100 mcg p.o. daily. 12. Losartan/HCTZ 50/12.5 mg 1 tab p.o. daily. 13. Metoprolol XL 25 mg 1 tab p.o. daily. 14. Nitroglycerin 0.4 mg sublingually every 5 minutes p.r.n. chest pain. 15. Potassium chloride 20 mEq p.o. daily p.r.n. 16. [place] Thyroid 30 mg p.o. daily. 17. Coumadin 2.5 mg daily except Sunday 5 mg. FOLLOWUP: The patient will follow up with his primary care provider, Dr. Mariel Doyle within 7 days of discharge. The patient will follow up with Dr. Booker with General Surgery Service within the next 2 weeks. CONDITION ON DISCHARGE: Stable. ACTIVITY: Ad harrison. DIET: [place] as tolerated. ADA and heart healthy. SPECIAL INSTRUCTIONS: Recommend PT/INR evaluation in 24 hours. CODE STATUS: FULL. DISPOSITION: Home on 01/25/2017.
[2017-01-25] MEDS: NS 0.9% w/ 20 MEQ KCL 1,000 ML/1,000 ML BAG IV SCH (14:48)
[2017-01-25 16:14] VITALS: BP 121/59; TEMP 98.8
== END 2017-01-25 17:18 | disposition home or self-care (01) | DRG 394 ==
LOC: ERS 14:38 → 2NO 17:17
PROVIDERS: ADMIT Internal Medicine; ATTEND Internal Medicine
DX: K35.80 Unspecified acute appendicitis (principal); I47.1 Supraventricular tachycardia; E11.9 Type 2 diabetes mellitus without complications; I48.0 Paroxysmal atrial fibrillation; Z68.42 Body mass index [BMI] 45.0-49.9, adult; I10 Essential (primary) hypertension; Z98.61 Coronary angioplasty status; E87.6 Hypokalemia; Z79.01 Long term (current) use of anticoagulants; N20.0 Calculus of kidney; I25.10 Atherosclerotic heart disease of native coronary artery without angina pectoris; E78.00 Pure hypercholesterolemia, unspecified; E66.01 Morbid (severe) obesity due to excess calories; G47.33 Obstructive sleep apnea (adult) (pediatric); E03.9 Hypothyroidism, unspecified; I25.2 Old myocardial infarction; R79.1 Abnormal coagulation profile
CPT/HCPCS: 36415; 36416; 71010; 74177; 80048; 80053; 81003; 82550; 82553; 84484; 85007; 85025; 85027; 85610; 85730; 87040; 93005; 96361; 96374; A4216; J0153; J1650; J1885; J2185; J7050; S0028

== ENCOUNTER 2017-11-23 20:01 | Inpatient (IN) | payer MEDICARE ==
[~2017-11-23 20:01] MED LIST: ISOVUE-370 76%-LOCM 1 ML ONE
[2017-11-23 21:00] LABS: #Lymphocytes 0.3 thou/uL (1.20-3.40); #Monocytes 0.1 thou/uL (0.11-0.59); %Basophils 0.1 % (0.0-1.0); %Eosinophils 0.5 % (0.0-10.0); %Lymphocytes 4.3 % (21.0-51.0); %Monocytes 0.7 % (0.0-10.0); %Neutrophils 94.4 % (42.0-75.0); Hemoglobin 13.8 g/dL (14.0-18.0); Mean Corpuscular HGB CONC 33.3 g/dL (32.0-36.0); Mean Corpuscular Hemoglobin 31.5 pg (27.0-31.0); Mean Corpuscular Volume 94.6 fL (78.0-98.0); Mean Platelet Volume 7.5 fL (7.4-10.4); Platelet Count 210 thou/uL (130-400); RBC Distribution Width 14.2 % (11.5-14.5); Red Blood Cell (RBC) Count 4.38 mill/uL (4.70-6.10); White Blood Cell (WBC) Count 7.4 thou/uL (4.8-10.8)
[2017-11-23 21:24] LABS: ALT (SGPT) 20 U/L (8-55); AST (SGOT) 31 U/L (5-34); Albumin 3.2 g/dL (3.4-4.8); Alkaline Phosphatase 135 U/L (40-150); Anion Gap 15 mmol/L (10-20); BUN (Urea Nitrogen) 15 mg/dL (8.4-25.7); Bilirubin, Total 1.3 mg/dL (0.2-1.2); CK (CPK) 492 U/L (30-200); Calc. Creatinine Clearance 0 mL/min (70-130); Calcium 8.8 mg/dL (7.8-10.44); Carbon Dioxide 18 mmol/L (23-31); Chloride 106 mmol/L (98-107); Estimated GFR-MDRD 47; Glucose 215 mg/dL (83-110); Lipase 26 U/L (8-78); Potassium 3.2 mmol/L (3.5-5.1); Protein, Total 6.2 g/dL (5.8-8.1); Sodium 136 mmol/L (136-145)
[2017-11-23 21:27] LABS: CKMB 1.7 ng/mL (0-6.6); Troponin I Less than 0.010 ng/mL (< 0.028)
--- NOTE | 2017-11-23 21:54 | RAD ---
CHEST ONE VIEW: 11/23/17 INDICATION: Altered mental status. COMPARISON: Prior exam dated January 22, 2017. FINDINGS: There is stable cardiomegaly. Lungs are clear. No acute osseous abnormality is evident. IMPRESSION: Stable cardiomegaly. POS: [facility]
[2017-11-23 21:55] LABS: Lactic Acid 6.1 mmol/L (0.5-2.2)
--- NOTE | 2017-11-23 22:24 | CT ---
CT OF THE BRAIN WITHOUT CONTRAST: 11/23/17 INDICATION: Altered mental status. COMPARISON: None. FINDINGS: There is generalized cerebral and cerebellar atrophy. No acute infarct, hemorrhage or hydrocephalus i s present. The septum pellucidum and third ventricle are midline. Mastoid air cells and paranasal sin uses are clear. The skull is intact. IMPRESSION: 1. No acute intracranial abnormality. 2. Small generalized cerebral and cerebellar atrophy. POS: [facility]
[2017-11-23] MEDS ORDERED: Sodium Chloride 0.9% 100 ML ONE (22:40)
[2017-11-23] MEDS ORDERED: Piperacillin/Tazobactam 4.5 GM VIAL ONE (22:40)
--- NOTE | 2017-11-23 23:30 | CT ---
CT OF THE ABDOMEN AND PELVIS WITH IV CONTRAST 11/23/17 INDICATION: Altered mental status. Found down by patient's with patient lying on the ground covered in feces . COMPARISON: CT of the abdomen and pelvis dated 01/22/17. FINDINGS: The lung bases are clear. There is mild fatty infiltration of the liver with mild hepatomegaly. The pancreas, adrenal glands, and right kidney appear within normal limits. There is stable 7 mm nono bstructing calculus involving the inferior pole of the left kidney. There is stable mild keyona mesentery seen within the central mesenteric root. The spleen is mildly enlarged measuring 13.9 cm which is stable to the prior exam. There is a structure seen within the right lower quadrant of the abdomen that has the appearance of a n appendix measuring up to 6.6 mm. The patient had findings on prior exam that appeared to reflect ac kristian appendicitis. This may reflect scarring within the right pericolonic gutter from prior inflammati on/appendectomy versus a retained appendix. There is scattered diverticula involving the colon. The colon is largely decompressed. Small bowel is of normal caliber. The bladder, rectum and perirectal soft tissues are unremarkable. No acute osseous abnormality is evident. There are scattered degenerative and osteoarthritic change. IMPRESSION: 1. Findings of hepatosplenomegaly with fatty liver. 2. Left nephrolithiasis. 3. Tubular structure seen adjacent to the cecum may reflect retained appendix. The patient had c hanges on the prior CT examination suspicious for acute appendicitis. Recommend correlation of patien t's surgical history. This could reflect scarring within the right pericolonic gutter. 4. Diverticulosis. 5. Other findings as above. POS: [facility]
[2017-11-23] MEDS ORDERED: Oseltamivir 75 MG CAP PO SCH (23:45)
[2017-11-23 23:55] LABS: Actual Bicarbonate (HCO3a) 18.4 mEq/L (22-28); Analyzer IN Cardio ER; Base Excess (BEa) -4.9 mEq/L (-2.0 to +3.0); CO2 Tension 29.1 mmHg (35.0-45.0); Calcium, Ionized 1.14 mmol/L (1.12-1.30); Carboxyhemoglobin (COHb) 0.2 gm% (0.0-3.0); Hemoglobin (Hb) 12.7 g/dL (14.0-18.0); Potassium - ABG Lab 3.06 mmol/L (3.70-5.30); pH, Arterial 7.42 (7.35-7.45)
[2017-11-23] MEDS ORDERED: diphenhydrAMINE 12.5 MG/5 ML UDCUP ONE (23:56)
[2017-11-23] MEDS ORDERED: diphenhydrAMINE 50 MG/ML VIAL ONE (23:58)
[2017-11-23 23:59] LABS: ALV-art Gradient 54.855 (0-20); O2 Tension (PaO2) 58.5 mmHg (> 70.0); Puncture Site LRA
[2017-11-24] MEDS ORDERED: Sodium Chloride 0.9% 1,000 ML IV SCH ×2 (01:27→20:45)
[2017-11-24 01:53] VITALS: BMI 50.3
[2017-11-24] MEDS ORDERED: TAMIFLU IVPB PRN (02:20)
[2017-11-24] MEDS ORDERED: Acetaminophen 325 MG TAB PO PRN (02:25)
[2017-11-24] MEDS ORDERED: Ondansetron ODT 4 MG TAB PO PRN (02:25)
[2017-11-24] MEDS ORDERED: methylPREDNISolone Sod Succ/PF 125 MG/2 ML VIAL IVP SCH (04:00)
[2017-11-24 05:00] LABS: INR-International Normal Ratio 2.6; Prothrombin Time 27.6 SEC (12.0-14.7)
[2017-11-24 05:10] LABS: Anion Gap 11 mmol/L (10-20); BUN (Urea Nitrogen) 17 mg/dL (8.4-25.7); Calc. Creatinine Clearance 91 mL/min (70-130); Calcium 8.1 mg/dL (7.8-10.44); Carbon Dioxide 21 mmol/L (23-31); Chloride 111 mmol/L (98-107); Estimated GFR-MDRD 45; Glucose 123 mg/dL (83-110); Potassium 3.5 mmol/L (3.5-5.1); Sodium 139 mmol/L (136-145)
[2017-11-24 05:21] LABS: Band 35 % (5-11); Hemoglobin 11.5 g/dL (14.0-18.0); Lymphocytes 6 % (21-51); MDiff Complete? YES; Mean Corpuscular HGB CONC 33.3 g/dL (32.0-36.0); Mean Corpuscular Hemoglobin 31.5 pg (27.0-31.0); Mean Corpuscular Volume 94.5 fL (78.0-98.0); Mean Platelet Volume 7.9 fL (7.4-10.4); Metamyelocyte 4 % (0-0); Monocytes 8 % (0-10); Neutrophil 47 % (42-75); PLT Morphology Comment Appears Adequate; Platelet Count 184 thou/uL (130-400); RBC Distribution Width 14.3 % (11.5-14.5); RBC Morphology Normal; Red Blood Cell (RBC) Count 3.65 mill/uL (4.70-6.10); White Blood Cell (WBC) Count 22.7 thou/uL (4.8-10.8)
[2017-11-24] MEDS: Levothyroxine Sodium 100 MCG TAB PO SCH (06:04)
--- NOTE | 2017-11-24 08:25 | HP ---
CHIEF COMPLAINT: "I'm feeling cold." HISTORY OF PRESENT ILLNESS: This is a 72-year-old male with past medical history of hypothyroidism, [place] 3 years ago, sleep apnea, atrial fibrillation, hypertension, hyperlipidemia, presenting with feeling cold and shortness of breath. Per the patient and the , patient stated that he was feeling very cold after he took a shower and he could not get the cold out of him. Patient was then laid on the floor and patient could not control his bowels, so patient had feces all over him. So the came into the house and noted that patient was on the floor with feces and the patient stated that he was very weak , not able to get up and per the , the patient started responding with a random letters that did not make sense. Therefore, called EMS and patient was brought to our hospital to be evaluated. Per the , the last time the patient was seen well was about 13:00. Of note, patient is currently complaining of abdominal pain which is 7/10 and states that he is not feeling as cold as before, but abdominal pain is all (over his belly). The patient denies any headaches, fever, chest pain, palpitations. Patient states that a year ago, he had abdominal pain and CT scan of the abdomen showed that he had appendicitis, but the surgeon refused to perform the surgery due to patient being "fat." REVIEW OF SYSTEMS: Positive for shortness of breath, wheezing, abdominal pain, chills. Otherwise as documented in the HPI, all other systems were reviewed and are negative. PAST MEDICAL HISTORY: Hypothyroidism, [place] 30 years ago, sleep apnea, atrial fibrillation, hyperlipidemia and hypertension. FAMILY HISTORY: Reviewed and noncontributory. PAST SURGICAL HISTORY: Several heart catheterizations in the past, angioplasty in the past. PSYCHIATRIC HISTORY: No psych history. SOCIAL HISTORY: The patient denies any illicit drug use. Denies any alcohol use and denies smoking history. KNOWN ALLERGIES: ADHESIVE TAPES, CODEINE, LATEX GLOVES. CURRENT MEDICATIONS: The patient is on atorvastatin. PHYSICAL EXAMINATION: VITAL SIGNS: Pulse 106, blood pressure is 127/71, O2 sat is 93% and temperature is 101.3. GENERAL: The patient is lying in bed, appears to have some shortness of breath ; however, able to speak in full sentences, does not appear to be in any acute distress. HEENT: Normocephalic, atraumatic. Pupils are equally round and reactive to light. Extraocular movements are intact. No scleral icterus. No conjunctival pallor. NECK: Patient has a big neck circumference. Trachea is midline. No meningeal signs. Full range of motion. Mucous membranes are dry. LUNGS: Patient is wheezing bilaterally at the anterior lung harris. No rales can be appreciated at the posterior lung harris. CARDIAC: Positive S1, S2, regular rate and rhythm. No murmurs, no gallops, no rubs appreciated. ABDOMEN: Obese abdomen, tenderness diffusely on palpation. No peritoneal signs. No guarding, no rigidity. EXTREMITIES: Upper extremity, 5/5 upper extremity strength. Good radial pulses bilaterally. Lower extremity, patient has trace bilateral pedal edema. Good strength bilaterally and good radial pulses. NEUROLOGIC: Cranial nerves II-XII grossly intact. No neurologic deficits noted. SKIN: Warm, dry, and intact. There is some venous stasis noted at the lower extremities. PSYCHIATRIC: Normal affect. IMAGING DATA: 1. A 12-lead EKG sinus tachycardia noted when patient first came into the ED. 2. CT scan of the abdomen and pelvis showed hepatosplenomegaly with fatty liver , left nephrolithiasis, tubular structure seen adjacent to the cecum may reflect retained appendix. The patient had changes on the prior CT examination suspicious for acute appendicitis. Diverticulosis is noted. 3. CT brain shows no acute intracranial abnormalities, small generalized cerebral and cerebellar atrophy. 4. Chest x-ray shows stable cardiomegaly. LABORATORY DATA: WBC 7.4, hemoglobin is 13.8, hematocrit is 41.5, RDW 14.2, platelets 210 and neutrophils 94.4. Electrolytes; sodium is 136, potassium is 3.2, chloride is 106, carbon dioxide of 18, anion gap of 15, BUN is 15, creatinine is 1.47, estimated GFR is 47, glucose is 215, lactic acid of 6.1, total bilirubin is 1.3, AST 31, ALT is 20. Ammonia level is 22, creatinine kinase is 492 and lipase is 26. ABG; pH is 7.4, pCO2 is 29.1, pO2 58.5. Coagulation: PT is 27.6, INR is 2.6. Repeat morning labs show the patient has WBC of 22.7 with bandemia of 34. ED COURSE: The patient has been given vancomycin, Tamiflu, Benadryl, Zosyn and normal saline. ASSESSMENT AND PLAN: This is a 72-year-old male been admitted for: 1. sepsis. Etiology unclear at this time. We will start the patient on antibiotics, continue antibiotics. The patient has been admitted to the [facility]. We will monitor the patient closely. 2. Acute hypoxemic respiratory failure. Patient's pO2 tension with 4 liters of nasal cannula shows that we are going to continue patient on Ventimask. We are going to monitor the patient closely. We trying the patient on oxygenation above 92% and we will give DuoNeb treatment and Solu-Medrol. We will get CPAP for the patient. 3. Hypothyroidism. We will continue the patient on his home medication. 4. Obstructive sleep apnea. We have ordered CPAP. We will continue to monitor the patient. 5. Dyslipidemia. We will continue the patient on current management. 6. Morbid obesity. Patient is currently obese. We will instruct the patient to eat healthy and we will continue him on his current management. 7. Hypertension. The patient's blood pressure is currently within normal limits. We will continue to monitor blood pressures. 8. History of atrial fibrillation. We will continue patient on current management. 9. Deep venous thrombosis and gastrointestinal prophylaxis. MTDD
[2017-11-24] MEDS: Digoxin 0.125 MG TAB PO SCH (08:31)
[2017-11-24] MEDS: Dronedarone HCl 400 MG TAB PO SCH ×2 (08:31→20:22)
[2017-11-24] MEDS: Famotidine 20 MG TAB PO SCH ×2 (08:31→20:23)
[2017-11-24] MEDS: Oseltamivir 75 MG CAP PO SCH ×2 (08:32→20:23)
[2017-11-24] MEDS ORDERED: cefTRIAXone\\ROCEPHIN 1 GM in Sodium Chloride 0.9% 100 ML IVPB SCH (09:00)
[2017-11-24 10:09] LABS: Bilirubin Negative (Negative); Blood, Urine Trace (Negative); Clarity CLEAR (Clear); Glucose, Urine (Dipstick) Negative (Negative); Leukocyte Negative (Negative); Nitrite Negative (Negative); Protein, Urine (Dipstick) Trace mg/dL (Neg-Trace); Specific Gravity, Urine 1.029 (1.002-1.036); Urobilinogen 0.2 mg/dL (0.2-1.0)
[2017-11-24 10:12] LABS: Bacteria/HPF None Seen HPF (None Seen); Hyaline Casts/LPF 4-6 HYALINE CAST LPF (0-3 Hyaline); Pathc Cast-AUWi Flag 0.87 (0-2.49); RBC/HPF 0-3 HPF (0-3); Squamous Epithelial 0-3 HPF (0-3); WBC/HPF 0-3 HPF (0-3)
[2017-11-24 10:27] LABS: Creatinine, Urine 108.2 mg/dL (63-166)
[2017-11-24 11:23] LABS: Lactic Acid 5.9 mmol/L (0.5-2.2)
--- NOTE | 2017-11-24 11:26 | PDOC.PN ---
- Subjective Encounter Start Date: 11/24/17 Encounter Start Time: 11:24 Mr. Nava was seen today in follow-up of sepsis- unknown source. He is feeling better. His mental status has improved. He does admitt to some abdominal pain about a 4/10 in the mid right abdomen. He denies any more shortness of breath than usual, he has had a cough, which has been non-productive for about 3 weeks now. He has not had any further diarrhea today. - Objective Resuscitation Status: Resuscitation Status FULL:Full Resuscitation MAR Reviewed: Yes Vital Signs & Weight: Vital Signs (12 hours) Temp Pulse Resp BP Pulse Ox 11/24/17 08:31 88 11/24/17 07:44 88 20 98 11/24/17 07:29 97.8 F 88 23 H 124/68 99 11/24/17 05:00 99.0 F 93 28 H 112/56 L 97 11/24/17 04:25 98.5 F 92 33 H 122/54 L 98 11/24/17 02:20 99 11/24/17 02:00 99.2 F 96 32 H 113/62 98 11/24/17 01:35 99.5 F 98 32 H 153/91 H 99 Weight Weight 331 lb 1.6 oz I&O: 11/23/17 11/24/17 11/25/17 06:59 06:59 06:59 Intake Total 840 Output Total 420 Balance 420 Result Diagrams: 11/24/17 04:22 11/24/17 04:22 Additional Labs: Accuchecks 11/23/17 20:16 POC Glucose 222 H Radiology Reviewed by me: Yes (CXR- no acute abnormalities) Phys Exam - Physical Examination HEENT: PERRLA Respiratory: no rales, no rhonchi, wheezing present, clear to auscultation bilateral + occasional wheeze Cardiovascular: RRR, no significant murmur, no rub Gastrointestinal: soft + mid right abdominal tenderness, no rebound or guarding Musculoskeletal: pulses present, edema present + trace pedal edema, with chronic venous stasis changes Psychiatric: normal affect, A&O x 3 Skin: no rash, normal turgor, cap refill <2 seconds Dx/Plan (1) Sepsis Code(s): A41.9 - SEPSIS, UNSPECIFIED ORGANISM Status: Acute (2) Acute respiratory failure with hypoxia Code(s): J96.01 - ACUTE RESPIRATORY FAILURE WITH HYPOXIA Status: Acute (3) Acute renal failure Status: Acute (4) RLQ abdominal pain Code(s): R10.31 - RIGHT LOWER QUADRANT PAIN Status: Acute Comment: Secondary to #1, pain control, see above (5) DM II (diabetes mellitus, type II), controlled Code(s): E11.9 - TYPE 2 DIABETES MELLITUS WITHOUT COMPLICATIONS Status: Chronic Comment: Continue Glipizide 5mg daily, ISS (6) Obesity, morbid Code(s): E66.01 - MORBID (SEVERE) OBESITY DUE TO EXCESS CALORIES Status: Chronic - Plan * Sepsis- ? etiology- will continue the current antibiotics, and will consult ID for additional recommendations, and Consult General Surgery for evaluation for chronic appendicitis ( abnormalities seen of CT-scan, and Right mid abdominal tenderness) * Will repeat the Flu-swab * Acute renal failure- likely due to volume depletion and sepsis * DM- will add a SSI- will hold on re-starting Glypizide, and Metformin * HTN- hold on Losartan - continue prn medication.
[2017-11-24] MEDS ORDERED: Dextrose 5% in Water 1,000 ML IV PRN (11:33)
[2017-11-24] MEDS ORDERED: Dextrose 50% Abboject 50 ML SYRINGE SLOW IVP PRN (11:33)
[2017-11-24] MEDS ORDERED: Albumin 25% 25 GM/100 ML BOT IVPB ONE (11:37)
[2017-11-24] MEDS ORDERED: Albumin 25% 25 GM/100 ML BOT IVPB SCH (12:15)
--- NOTE | 2017-11-24 15:51 | CON ---
DATE OF CONSULTATION: 11/24/2017 HISTORY OF PRESENT ILLNESS: Hussein Nava is a 72-year-old morbidly obese gentleman whom I have seen about 6-7 years ago. He has a diagnosed sleep apnea, severe deconditioning, and morbidly obese, who presented to the ER with mental status changes. 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 Later on, she found him on the bed with the loss of bow el function. He is complaining of some vague abdominal discomfort, but denies any fever or chills, t jessica he said he was cold. Pain was epigastric in nature. He was brought to the ER since being admi tted. PAST MEDICAL HISTORY: Morbid obesity, obstructive sleep apnea, diabetes, coronary artery disease, [facility] post MD, atrial fibrillation, hypertension, hyperlipidemia, hypothyroidism. PAST SURGICAL HISTORY: Multiple catheterizations, angioplasty. HABITS: No alcohol, no tobacco. Home MEDICATIONS: Metformin 500 a day, nitroglycerin, losartan 50, digoxin 0.125, B12, Synthroid 125 , Zetia 10, Lasix 40, Multaq 1 tablet twice a day, Coumadin 5 mg a day, Toprol-XL 25. ALLERGIES: CODEINE. 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 FAMILY HISTORY: Unremarkable. REVIEW OF SYSTEMS: A 10-point negative. PHYSICAL EXAMINATION: GENERAL: He is awake, alert, responsive, in no distress. VITAL SIGNS: Sats are 95% on room air, pulse 80, blood pressure . CHEST: Reveals no wheezing or crackles. CARDIAC: Normal S1, S2, no gallops. ABDOMEN: Soft. No masses. LABORATORY: White count 20,000, H and H 11 and 34, platelet count 185, 35 bands, pO2 was 58, pCO2 __ ___ on room air. Creatinine is 1.53. IMPRESSION: 1. Sepsis syndrome, await cultures. 2. Morbid obesity. 3. Sleep apnea. 4. Diabetes. 5. Renal failure. PLAN: Continue ceftriaxone, vancomycin until we get cultures back, thereafter, deescalated. The patient and to bring home CPAP machine. So far cultures are negative. We will follow. Consultation note 70 minutes, 50% spent in direct patient care.
--- NOTE | 2017-11-24 16:39 | CON ---
DATE OF CONSULTATION: 11/24/2017 HISTORY OF PRESENT ILLNESS: Mr. Nava is a 72-year-old white male with known multiple medical probl ems and admitted for sepsis. We are being consulted for his acute kidney injury. REVIEW OF SYSTEMS: Positive for chills, but no overt fever, no chest pain, no shortness of breath. Decreased appetite, decreased energy level, no syncopal episode, no productive cough, no hematochezia , no melena, no dysuria, no urine frequency, no syncopal episode, no headache, no sore throat, no hem atochezia, no melena. HOME MEDICATIONS: Include the following, metformin 500 mg q.a.m., glipizide 5 mg daily, Coumadin as directed, KCl 40 mEq in the morning alternating with 20 mEq daily, nitroglycerin p.r.n., Toprol-XL 25 mg daily, losartan/hydrochlorothiazide 50/12.5 once a day, levothyroxine 125 mcg daily, furosemide 4 0 mg daily, Zetia 10 mg daily, Multaq 1 tab p.o. b.i.d., digoxin 0.125 mg daily, atorvastatin 40 mg q .p.m. HOSPITAL MEDICATIONS: Include Tamiflu 75 mg p.o. b.i.d., vancomycin 2 g, and ceftriaxone 1 g IV hussein y. PAST MEDICAL HISTORY: Includes the following: The patient's history of hyperlipidemia, COPD, obstru ctive sleep apnea, AFib, hypothyroidism, hypertension, and type 2 diabetes mellitus. PAST SURGICAL HISTORY: Status post cardiac catheterization, status post coronary angioplasty. SOCIAL HISTORY: The patient lives in [place]. 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 No drug abuse. Currently, no smoking, but had a history of smoking in the past. Alcohol, none. Sedentary lifestyle. FAMILY HISTORY: Noncontributory. ALLERGIES: Allergic to CODEINE AND LATEX. TRAUMA: None. IMMUNIZATIONS: Up to date. HOSPITALIZATIONS: Please see past medical history. FAMILY HISTORY: ESRD. PHYSICAL EXAMINATION: VITAL SIGNS: Blood pressure is noted at 124/68, heart rate 88, respiratory rate 23, temperature 97.8 , pulse ox 99%. GENERAL: Noted to be awake, alert, supine, comfortable, obese, not in distress. SKIN: Adequate turgor. HEENT: He has pinkish conjunctivae, anicteric sclerae. NECK: No neck mass, no carotid bruits, no JVD. CHEST: No deformities. LUNGS: Clear breath sounds, no wheezing, no crackles. HEART: Irregularly irregular. No murmur, no gallops, no rubs. ABDOMEN: Globular, soft, nontender. EXTREMITIES: No edema. LABORATORY DATA: Of November 24, 2017; white count 22.7, hemoglobin 11.5. Sodium 139, potassium 3.5, chloride 111, carbon dioxide is 21, BUN 17, creatinine 1.53, calcium 8.1, glucose 45. Lactic acid i s 5.9. November 23, 2017, creatinine 1.47. November 21, 2017, creatinine is 1.04. Urinalysis of 2017, specific gravity was 1.029, urine creatinine , urine sodium is 33, no pigmented gr anular cast. ASSESSMENT AND PLAN: 1. Acute kidney injury - consider hemodynamically mediated renal dysfunction. Continue to optimize hemodynamics. Continue IV fluid. If needed, we could consider adding salt poor albumin 25 grams IV q.6. with this patient. There is no indication for any dialytic intervention. Agree to hold off ARB and diuretics. 2. Sepsis syndrome - currently on IV antibiotics. Agree with current management.
[2017-11-24] MEDS ORDERED: Warfarin Sodium 2.5 MG TAB PO SCH (17:00)
[2017-11-24] MEDS: Albumin 25% 25 GM/100 ML BOT IVPB SCH (17:16)
--- NOTE | 2017-11-24 19:22 | CON ---
DATE OF CONSULTATION: 11/24/2017 REASON FOR CONSULTATION: Fever. HISTORY OF PRESENT ILLNESS: A 72-year-old who has a history of hypertension, obesity with dyslipidem ia, and paroxysmal atrial fibrillation who was in his usual state of health until the day before admi ssion when he developed general malaise and chills and then found himself on the floor, probably had a syncopal event and had diarrhea, could not get up from the floor and had to activate EMS. He was brought to the hospital and initial findings included pressure 120/70, pulse 106, O2 sat 93, temp erature 101.3. A little bit dyspneic speaking full sentences. He had bilateral expiratory wheezing in lung harris. Heart exam was normal. Abdomen with diffuse tenderness on palpation. The patient h ad experienced pain before the onset of the syndrome that led to his clinical status change. Pain he describes as in the lower segments of his abdomen. His lab data showed a white cell count 7.4 initi ally and increased to 22,000 with a left shift. Lactic acid was elevated at 6.1. Creatinine was 1.5 3. Chest x-ray did not show any infiltrates. The patient had an abdomen and pelvis CT which demonst rated hepatosplenomegaly, fatty liver, nephrolithiasis left side, tubular structure adjacent to the c ecum. PAST MEDICAL HISTORY: Include obesity, sleep apnea, probably some element of chronic obstructive pul monary disease as well, hypothyroidism, coronary artery disease, prior NC, atrial fibrillation, two a dmissions for paroxysmal atrial fibrillation. History appendicitis, diagnosed 01/2017. At that time , a CT showed thickened appendix centered within the right lower quadrant, but no evidence of perfora tion. The patient was managed conservatively at that time with improvement. PAST SURGICAL HISTORY: Heart catheterization. SOCIAL HISTORY: Retired, lives in [place] with ance. Never smoker. ALLERGIES: LATEX. CURRENT MEDICATIONS: Tylenol, albumin, DuoNeb, Lipitor, ceftriaxone, levothyroxine, methylprednisolo ne, vancomycin, warfarin. PHYSICAL EXAMINATION: VITAL SIGNS: T-max 99, blood pressure 112/60, pulse 74, respirations 20-24, O2 sat 98% on 3 liters n raiza cannula. GENERAL: Awake, a little bit dyspneic at rest. No lymphadenopathy. Peripheral IV access. Voiding spontaneously and urinal. HEENT: Ocular movements conjugate. Oral cavity is somewhat dry. Still quite a few teeth in place w ith marked decay and some gum disease. NECK: Supple, no jugular vein distention. LUNGS: Faint expiratory wheezing. A little bit of pain in the mobilization of the right shoulder wh ich is a chronic finding. No inspiratory crackles. CARDIOVASCULAR: S1, S2, regular rate without murmurs. ABDOMEN: Soft, globose without tenderness, maybe a little bit of tenderness in the lower segments. No ascites. No bladder distention, no organomegaly. EXTREMITIES: No joint inflammatory activity. Pulses are 1+ in dorsalis pedis. Plantar responses ar e flexure. No clonus. Strength in upper and lower extremities is symmetric and preserved. NEUROLOGIC: Cognitive function appears to be intact. LABORATORY DATA: White cell count has been noted above. He has 35% bands, platelet count 184. Crea tinine is 1.53, lactic acid 5.9. Microbiology: Influenza A and B negative. Two sets of blood cultu res thus far no growth. ASSESSMENT: 1. Obesity with hypoventilation syndrome. 2. Hypertension. 3. History of appendicitis diagnosed a few months ago and treated conservatively. 4. New onset of abdominal pain with diarrhea, fever, elevated lactic acid. DISCUSSION: Differential diagnosis includes a recrudescence of appendicitis versus gastroenteritis w ith a bacterial pathogen acquired from food intake versus a viral infection. In view of bandemia and the symptoms of abdominal pain, concern with possibility of recrudescence of appendicitis and we braydon l treat with broad spectrum coverage. Switch him to meropenem from Rocephin. Check the stool for va emre stool pathogens or enteric pathogens. Check respiratory virus PCR.
[2017-11-24] MEDS: MEROPENEM 1 GM/50 ML 1 GM in Premix Bag 1 BAG IVPB SCH (20:23)
[2017-11-24] MEDS: Atorvastatin Calcium 40 MG TAB PO SCH (20:23)
--- NOTE | 2017-11-24 23:03 | CON ---
DATE OF CONSULTATION: 11/24/2017 GENERAL SURGERY CONSULTATION CHIEF COMPLAINT: Central abdominal pain. HISTORY: This is a 72-year-old male who is morbidly obese and diabetic. Last year in January, he w as admitted with acute appendicitis. Dr. Booker was consulted and treated him nonsurgically with an tibiotics to resolve. He said that Sunday night he started having chills and fever and central abdom inal pain, now having diarrhea and right foot pain. No nausea or vomiting. He says he feels better than he did yesterday. He feels like it is getting better. PAST MEDICAL HISTORY: Significant for morbid obesity, hypothyroidism, history of myocardial infarcti on, sleep apnea, atrial fibrillation, hyperlipidemia, and hypertension. PAST SURGICAL HISTORY: He has had angioplasty and heart catheterization. MEDICATIONS: Include Glucophage, potassium, nitroglycerin, losartan, digoxin, Synthroid, Zetia, Lasi x, warfarin, Toprol-XL. ALLERGIES: He has allergies to CODEINE and ADHESIVES. SOCIAL HISTORY: He is , retired. Prior tobacco, prior alcohol. FAMILY HISTORY: Noncontributory. PHYSICAL EXAMINATION: VITAL SIGNS: Temperature 98.4, pulse 82, blood pressure 106/64. GENERAL APPEARANCE: Morbidly obese male. He is awake, alert, does not appear to be in any distress. HEENT: Unremarkable. LUNGS: Clear. HEART: Regular rate and rhythm. ABDOMEN: Morbidly obese, soft. He is tender in the right lower quadrant to deep palpation. EXTREMITIES: Unremarkable. LABORATORY DATA AND IMAGING DATA: His white count is 22,000, hemoglobin and hematocrit 11.5 and 34, platelet count 184. Electrolytes show an elevated glucose of 123. His creatinine is 1.5. He PT is 27.6 with an INR 2.6. CT scan shows a 6.6 mm tubular structure in the right lower quadrant which the y are describing as an appendix. There is not any definite stranding around it. He does have divert iculosis. ASSESSMENT: Possible recurrent appendicitis. PLAN: He just ate, he is anticoagulated. He is getting better on IV antibiotics, so we will continu e the IV antibiotics and reassess tomorrow. We will keep him n.p.o. We are going to hold his Coumad in. We will get a Cardiology consultation.
[2017-11-25] MEDS: Albumin 25% 25 GM/100 ML BOT IVPB SCH ×2 (00:04→05:15)
[2017-11-25] MEDS: Levothyroxine Sodium 100 MCG TAB PO SCH (05:15)
[2017-11-25 05:24] LABS: INR-International Normal Ratio 2.8; PTT 63.4 SEC (22.9-36.1); Prothrombin Time 29.5 SEC (12.0-14.7)
[2017-11-25 05:30] LABS: Anion Gap 14 mmol/L (10-20); BUN (Urea Nitrogen) 26 mg/dL (8.4-25.7); Calc. Creatinine Clearance 109 mL/min (70-130); Calcium 8.1 mg/dL (7.8-10.44); Carbon Dioxide 19 mmol/L (23-31); Chloride 112 mmol/L (98-107); Estimated GFR-MDRD 55; Glucose 225 mg/dL (83-110); Potassium 3.7 mmol/L (3.5-5.1); Sodium 141 mmol/L (136-145)
[2017-11-25 06:16] LABS: Band 24 % (5-11); Lymphocytes 7 % (21-51); MDiff Complete? YES; Mean Corpuscular HGB CONC 33.4 g/dL (32.0-36.0); Mean Corpuscular Volume 95.8 fL (78.0-98.0); Mean Platelet Volume 7.9 fL (7.4-10.4); Monocytes 1 % (0-10); Neutrophil 68 % (42-75); PLT Morphology Comment Appears Adequate; Platelet Count 153 thou/uL (130-400); RBC Distribution Width 14.3 % (11.5-14.5); RBC Morphology Normal; Red Blood Cell (RBC) Count 3.42 mill/uL (4.70-6.10); White Blood Cell (WBC) Count 21.7 thou/uL (4.8-10.8)
--- NOTE | 2017-11-25 08:40 | EKG ---
Test Reason : Blood Pressure : / mmHG Vent. Rate : 117 BPM Atrial Rate : 117 BPM P-R Int : 212 ms QRS Dur : 090 ms QT Int : 366 ms P-R-T Axes : 055 -32 012 degrees QTc Int : 510 ms Sinus tachycardia with 1st degree A-V block Artifact in I, II, and lead V2. Left axis deviation Abnormal ECG Confirmed by CURT GREEN ([id number]) on 11/25/2017 8:40:34 AM Referred By: Confirmed By:CURT GREEN
[2017-11-25] MEDS ORDERED: Furosemide 40 MG/4 ML VIAL SLOW IVP SCH (08:45)
[2017-11-25] MEDS: MEROPENEM 1 GM/50 ML 1 GM in Premix Bag 1 BAG IVPB SCH ×2 (09:10→20:18)
[2017-11-25] MEDS: Digoxin 0.125 MG TAB PO SCH (09:20)
[2017-11-25] MEDS: Famotidine 20 MG TAB PO SCH ×2 (09:20→20:18)
[2017-11-25] MEDS: Dronedarone HCl 400 MG TAB PO SCH ×2 (09:20→20:18)
[2017-11-25] MEDS: Oseltamivir 75 MG CAP PO SCH ×2 (09:21→20:21)
--- NOTE | 2017-11-25 09:28 | RAD ---
CHEST 1 VIEW: HISTORY: Shortness of breath. Decrease in O2 sats. COMPARISON: 12/03/2017. FINDINGS: Enlarged cardiac silhouette. Pulmonary vessels are prominent. Patchy interstitial and alveolar opac ities. No pneumothorax or significant pleural fluid. IMPRESSION: Cardiomegaly and volume overload. POS: LUIS DANIEL
--- NOTE | 2017-11-25 09:52 | PRG ---
DATE OF SERVICE: 11/25/2017 SUBJECTIVE: The patient reports that his pain is much better today. He really does not have any abd ominal pain. His main complaint this morning is shortness of breath. He is having a lot of difficul ty breathing. He is still having diarrhea, loose stools. PHYSICAL EXAMINATION: VITAL SIGNS: His temperature is 97.9, pulse 68, blood pressure 102/57. He is on a nonrebreather. H is respiratory rate is 28. GENERAL: He is awake, alert. LUNGS: Clear. ABDOMEN: Distended. I cannot elicit any tenderness this morning. LABORATORY DATA: His white count is 21.7, hemoglobin and hematocrit 11 and 32, platelet count 153. His PT is 29.5, INR of 2.8, PTT of 63.4. Electrolytes, his CO2 is 19, creatinine is 1.28, glucose 22 5. ASSESSMENT: I doubt this is from appendicitis being that the CT was not that impressive to cause whi te count is high. His tenderness and pain is gone, likely some other etiology. PLAN: We will check a chest x-ray this morning. Further evaluation with Pulmonary and Cardiology.
--- NOTE | 2017-11-25 10:39 | PRG ---
DATE OF SERVICE: 11/25/2017 SERVICE: Renal Medicine. SUBJECTIVE: Mr. Nava is a 72-year-old white male who was seen by the Renal Service for his acute k idney injury. This was felt to be a hemodynamically mediated renal dysfunction. His ARB/diuretic wa s placed on hold. This improved the renal function. He was also given salt poor albumin. However, this morning, he was in mild respiratory distress. A chest x-ray showed CHF. Lasix 40 mg IV q.12 h ours has been ordered for the patient. He is also currently on his BiPAP. He has a history of obstr uctive sleep apnea. He is feeling better. OBJECTIVE: VITAL SIGNS: Blood pressure is 102/57 with a heart rate of 68, respiratory rate 28, pulse oximetry 9 2% on CPAP. GENERAL: Awake, alert, comfortable, not in distress. Obese. SKIN: Adequate turgor. HEENT: He has pinkish conjunctivae, anicteric sclerae. NECK: No neck mass, no carotid bruits, no JVD. CHEST: No deformities. LUNGS: Decreased breath sounds. No wheezing. HEART: Normal sinus rhythm. No murmur, no gallops, no rubs. ABDOMEN: Globular, soft, nontender, no masses. EXTREMITIES: Positive for edema. MEDICATIONS: Of 11/25/2017 was reviewed. LABORATORY DATA: Of 11/25/2017, white count 21.7, hemoglobin 11. Sodium 141, potassium 3.7, chlorid e 112, carbon dioxide 19, BUN is 26, creatinine 1.28, glucose 225, calcium 8.1. ASSESSMENT AND PLAN: 1. Congestive heart failure - given one dose of Lasix at 40 mg IV. We will try to maintain this pat ient on Lasix at 40 mg IV q.12 hours. 2. Acute kidney injury - hemodynamically mediated renal dysfunction. Much improved with volume - in itially received colloid and crystalloid. Creatinine now is within normal. We will continue current management. No indication for any dialytic intervention. 3. Diarrhea/elevated white count - currently on IV antibiotics. ID following. 4. Obstructive sleep apnea, currently on BiPAP. Overall, agree with current management.
--- NOTE | 2017-11-25 11:27 | PRG ---
DATE OF SERVICE: 11/25/2017 SUBJECTIVE: This morning, awake, responsive. Still having some vague abdominal discomfort. His C. diff test was negative. He is on his BiPAP without any distress. OBJECTIVE: VITALS: Sats are 98%, respiration rate 18, temperature 98, pulse 66, blood pressure 116/67. CHEST: Decreased breath sounds, no wheezing. CARDIAC: Normal S1, S2. ABDOMEN: Soft, no masses. LABORATORY DATA: White count of 21,000, H and H 11 and 32, platelet count is 153. Creatinine is 1.2 8. INR is 2.8. IMPRESSION: 1. Abdominal sepsis, probably secondary to appendix. 2. Sleep apnea. 3. Azotemia. PLAN: Quite unimpressive, slight cephalization, but this is probably on the basis of his obesity. W e will continue antibiotics, await input from Surgery.
--- NOTE | 2017-11-25 13:13 | PDOC.PN ---
- Subjective Encounter Start Date: 11/25/17 Encounter Start Time: 13:11 Mr. Jimenez was seen today in follow-up of sepsis- ? etiology. He says the abdominal pain was better this morning, but he woke up from a nap, and says he is hurting again. It is in the right to mid lower quadrant. - Objective Resuscitation Status: Resuscitation Status FULL:Full Resuscitation MAR Reviewed: Yes Vital Signs & Weight: Vital Signs (12 hours) Temp Pulse Resp BP Pulse Ox 11/25/17 10:53 98.0 F 66 18 116/67 96 11/25/17 09:20 68 11/25/17 08:18 92 L 11/25/17 08:16 68 28 H 11/25/17 08:00 91 L 11/25/17 07:25 97.9 F 65 18 102/57 L 91 L 11/25/17 04:18 98.3 F 83 21 H 110/68 92 L Weight Weight 331 lb 1.6 oz I&O: 11/24/17 11/25/17 11/26/17 06:59 06:59 06:59 Intake Total 840 2876 Output Total 420 675 Balance 420 2201 Result Diagrams: 11/25/17 04:53 11/25/17 04:53 Additional Labs: Accuchecks 11/25/17 11/25/17 11/24/17 10:27 06:08 17:27 POC Glucose 235 H 240 H 249 H Phys Exam - Physical Examination HEENT: PERRLA, sclera anicteric Respiratory: no wheezing, no rales, no rhonchi, clear to auscultation bilateral Cardiovascular: RRR, no significant murmur, no rub no gallop Gastrointestinal: soft, no distention, positive bowel sounds + right lower quandrant, to supra pubic tenderness Musculoskeletal: pulses present, edema present + chronic venous stasis changes Dx/Plan (1) Sepsis Code(s): A41.9 - SEPSIS, UNSPECIFIED ORGANISM Status: Acute (2) Acute renal failure Status: Acute (3) RLQ abdominal pain Code(s): R10.31 - RIGHT LOWER QUADRANT PAIN Status: Acute Comment: Secondary to #1, pain control, see above (4) DM II (diabetes mellitus, type II), controlled Code(s): E11.9 - TYPE 2 DIABETES MELLITUS WITHOUT COMPLICATIONS Status: Chronic Comment: Continue Glipizide 5mg daily, ISS (5) Obesity, morbid Code(s): E66.01 - MORBID (SEVERE) OBESITY DUE TO EXCESS CALORIES Status: Chronic (6) Atrial fibrillation Code(s): I48.91 - UNSPECIFIED ATRIAL FIBRILLATION Status: Acute (7) Chronic anticoagulation Code(s): Z79.01 - CARE HOME (CURRENT) USE OF ANTICOAGULANTS Status: Chronic Comment: Hold anticoagulation give elevated INR (8) Acute respiratory failure with hypoxia Code(s): J96.01 - ACUTE RESPIRATORY FAILURE WITH HYPOXIA Status: Resolved - Plan * Sepsis- ? etiology- Blood cultures and stool studies, and Influenza screen are negative. He still has a significant Leukocytosis. Will continue Meropenem and Vancomycin * Abdominal Pain- ? etiology- will continue to observe while on antibiotics * Acute kidney injury- improved * AFIB- his heart rate is stable- INR is 2.8 today * ANMOL- stable on CPAP * DM- blood glucose is elevated- he is NPO , so will continue with SSI.
--- NOTE | 2017-11-25 13:13 | CON ---
DATE OF CONSULTATION: 11/25/2017 INDICATION FOR CONSULTATION: A 72-year-old morbidly obese gentleman who has a possible appendicitis, may need to undergo surgical correction, has a history of paroxysmal atrial fibrillation, has been o n medical management and is on Coumadin. We were being asked to see him as far as the Coumadin and t he atrial fibrillation and his risk of undergoing General Surgery for the possible appendectomy. He also has a history of coronary artery disease and underwent, I believe angioplasty in 1993. HISTORY OF PRESENT ILLNESS: This is a pleasant 72-year-old gentleman who has been followed by Dr. Kelly pires for sometime. He has had a history of coronary artery disease, underwent angioplasty in 1993. I did not see if there is any stent placed. He has been also having episodes of atrial fibrillatio n in the past. He has been cardioverted several times. His cardioversion was a couple of years ago. He has been placed on Multaq and apparently he has been maintaining sinus rhythm. He has also been placed on Coumadin. His INR is therapeutic. He denies any new complaints except he has shortness o f breath, but does have sleep apnea. He is morbidly obese. He has minimal exercise. He has no othe r significant cardiac complaints. He denies any chest pain. His most recent echocardiogram was perf ormed in 07/2017, which showed a normal left ventricular systolic function or slightly decreased ejec tion fraction normal at 55%-60%. He had evidence of mild mitral and tricuspid valve regurgitation. The aortic valve is slightly sclerotic, but there was no obstruction. He has not had a recent stress test. He was advised to undergo stress testing later this year. He presented at this time to the e mergency room after he had been complaining of some abdominal pain and not feeling well for the last couple of days. He was found apparently on the floor, he developed chills and fever and he was broug ht to the emergency room after his fiancee found him on the floor apparently. At this time, he has b een placed on IV antibiotics and he is feeling somewhat better. He has no pain this morning. On kylie ginal evaluation per the general surgeon, he did have right lower quadrant pain compatible with acute appendicitis. The CAT scan does not show any acute process except for some inflammation, perhaps he does have some significant bloating with some dilatation of the abdomen. He said does appear to be somewhat tympanic, but he has no significant discomfort and no palpable masses at this time. He did have some infiltration of the liver with some hepatomegaly and also had an enlarged spleen with some left nephrolithiasis, but the final report did show that he was somewhat suspicious for appendicitis and some diverticulosis. He is being monitored by Dr. Alejo. His white blood cell count on the init ial evaluation was not significantly elevated. It was only 7.4; however, about 8 hours later, white blood cell count was 22,700, and the following 24 hours later was 21.7. His hemoglobin was stable. It appears that he developed perhaps some sepsis associated with some type of abdominal infection, wh ich could certainly be appendicitis. After discussion with Dr. Alejo, he does not feel that since th e patient at this time has no more abdominal pain, then this is not an emergent situation and the Cou madin would need to be addressed prior to proceeding with surgery. This patient gets minimal exercis e. He is retired. He is obese and he pretty much just walks around the house. He says he has some hip pain and gets minimal exercise. PAST MEDICAL HISTORY: Significant for coronary artery disease, angioplasty in 1993, history of hyper tension, dyslipidemia, diabetes. He refused to admit that he has diabetes. His hemoglobin A1c was s ignificantly elevated. He also has a history of tobacco abuse in the past. He has a history of atri al fibrillation, has undergone multiple cardioversions. He has sleep apnea for which he wears a CPAP mask. He has had nephrolithiasis in the past. He has anxiety. He has venous insufficiency of the lower extremities. ALLERGIES: He is allergic to CODEINE and LATEX. MEDICATIONS: Prior to admission included digoxin 125 mcg daily, Coumadin 2.5 mg as directed to keep an INR between 2 and 3, Synthroid 125 mcg daily, vitamin D3, potassium 10 mEq daily, [place] thyroid 3 0 mg daily, Zetia 10 mg a day, Lipitor 40 mg a day, aspirin 81 mg daily, CoQ10, vitamin B12, meclizin e, nitroglycerin p.r.n. as needed, Multaq 400 mg b.i.d., losartan/hydrochlorothiazide 50/12.5 one maximus ly, metoprolol ER 25 mg daily, and furosemide 40 mg daily. REVIEW OF SYSTEMS: A 12 point review of systems. HEENT: He denied any new HEENT complaints or visu al changes, hearing loss, or tinnitus. Pulmonary: He had no significant pulmonary complaints except for these occasional shortness of breath if he over exerts himself and also he has sleep apnea. He has had no new upper respiratory tract infections. Gastrointestinal: He mainly complains of some abd ominal discomfort. He has occasional diarrhea. Genitourinary: He denies any dysuria, polyuria or h ematuria. Neurological: He denied any history of seizures or syncope. However, yesterday he was co nfused, which may be due to the infection. He had mental status changes, but now appears to be back to normal. Extremities: He does have some lower extremity edema and has some discoloration associat ed with his venous insufficiency. He has some discomfort in the right hip due to arthritis. PHYSICAL EXAMINATION: GENERAL: Reveals a morbidly obese elderly gentleman, who is in no acute distress at this time except he was short of breath earlier. He was given IV fluids over 2 liters due to the infection and proba nancy some hypotension. He was hypotensive at this time. VITAL SIGNS: Blood pressure is 102/57, heart rate is 65 and shows a sinus rhythm, respiratory rate i s 18, temperature is 97.9, O2 saturation 91%. Earlier today, the oxygen level of the pO2 was decreas e in the 50s and this appears to have improved. HEENT: Shows head to be normocephalic and atraumatic. Carotid pulses are present. I did not hear a ny bruits. CHEST: Has some late expiratory wheezing. Otherwise, no rales or rhonchi were noted. CARDIOVASCULAR: Exam reveals a regular rate and rhythm at this time. I did not hear any significant murmurs, heaves, thrills, bruits or rubs. ABDOMEN: Shows morbid obesity, tympanic. I cannot palpate any masses. He does not appear to be ten harvey at this time. EXTREMITIES: Show no clubbing or cyanosis. He did have some discoloration of the lower extremities due to chronic venous insufficiency and only trace edema. Pedal pulses are present. NEUROLOGIC: The patient appears to be intact at this time. He has a BiPAP mask in place. Neurologi vee, he is otherwise intact. SKIN: Warm and dry. LABORATORY DATA AND X-RAY FINDINGS: At this time shows a white blood cell count of 21,700, hemoglobi n 11.0, hematocrit 32. His platelet count was 153,000. His INR this morning was 2.8. His chemistri es showed a potassium of 3.7, BUN was 26, creatinine 1.28, earlier the creatinine was 1.53, but after IV fluids, his creatinine is now 1.28. Blood sugar was 225 and this morning was 240. His CK was 49 2, MB 1.7. Cardiac enzymes are unremarkable. His lactic acid was 6.1. His hemoglobin A1c in leslie was 9. His EKG shows a sinus rhythm with no acute ST segment changes. His chest x-ray shows car diomegaly, this may be due to the large chest size, but there was no indication of cardiomegaly by e echocardiogram. The lungs were clear without any evidence of infection as noted above. The CT sca n results are noted. He also had a CT scan of the brain due to his altered mental status changes whe n he was found, but most likely this is due to the infection. He had no acute changes. He did have some small generalized cerebral and cerebellar atrophy. IMPRESSION: 1. Possible sepsis from most likely an abdominal etiology. He has been seen by Dr. Arthur. He has a lso been seen by Dr. White and Dr. Hutchinson as well as the hospitalist service and Dr. Alejo. His overall status appears to be improved. He is denying any pain at this time. I have discussed this case with Dr. Alejo who opt to continue antibiotics at this time and see how the patient proceed. We will hol d the Coumadin in case the patient does need to undergo urgent surgery. He does have a history of co ronary artery disease; however, given that if this becomes an emergency situation, then we will proce ed with surgery since the patient has been asymptomatic and has had no significant complaints of any chest discomfort. 2. History of morbid obesity. He does have hypoventilation syndrome and oxygen levels were somewhat decreased and most likely due to hypoperfusion, due to the obesity, he will continue to wear his CPA P mask. He feels much better when the mask is on. This will be followed by the primary care service . 3. History of hypertension. This is under reasonable control at this time. 4. History of intermittent atrial fibrillation. He remains in sinus rhythm at this time on Multaq. Should we need to stop the Coumadin most likely he will be at somewhat lower risk for embolic phenom enon since he has a normal left ventricular systolic function. He does have mild mitral valve regurg itation. The left atrium is not significantly dilated, so he should thus be at somewhat lower risk o f developing any acute embolic phenomenon associated with atrial fibrillation even should he need to stop the Coumadin altogether. We will stop his Coumadin and it has been discussed in the office abou t perhaps putting the patient on Eliquis and this will be decided later on this hospital course. 5. History of coronary artery disease. He did undergo angioplasty in 1993 and he has been stable si nce that time. He has no stents placed and he has been doing well. He is scheduled to undergo stres s testing in the future. If he settled down completely, he may undergo stress testing on this admiss ion, but certainly could be done as an outpatient. 6. Diabetes. The patient should be started on medications to address his diabetes. Even though he refuses to admit that he has diabetes, his blood sugars and hemoglobin A1c indicate otherwise. Furth er care of the patient will be dictated by Dr. Payne when he sees the patient tomorrow.
[2017-11-25] MEDS: Furosemide 40 MG/4 ML VIAL SLOW IVP SCH (13:25)
[2017-11-25] MEDS: Vancomycin HCl 1.5 GM in Sodium Chloride 0.9% 250 ML 300 ML IVPB SCH (13:25)
--- NOTE | 2017-11-25 14:37 | PRG ---
DATE OF SERVICE: 11/25/2017 SUBJECTIVE: Still with pain in the lower segments of the abdomen, particularly in the mid and the ri ght side. No respiratory symptoms or genitourinary symptoms. No neurological symptoms. OBJECTIVE: VITAL SIGNS: T-max 98, blood pressure 116/67, pulse 66, respirations 18, O2 sat 96%. GENERAL: Appears in some distress from pain in the abdomen. LUNGS: Clear. CARDIOVASCULAR: S1, S2, regular rate. Using a nasal CPAP mask. ABDOMEN: Moderately distended with [id number] pain in the lower quadrants. Some rebound tende rness. LABORATORY DATA: White cell count is at 21.7, hemoglobin 11, platelets 153,000, 24% bands. Creatini ne of 1.28, which is lower than previous. Microbiology with negative stool evaluation thus far and n egative blood cultures. ASSESSMENT AND DISCUSSION: Obesity hypoventilation, hypertension, history of appendicitis treated co nservatively and now new onset of abdominal pain. Again, the main concern is with recrudescence of t he appendicitis. Primary gastroenteritis appears to be less likely. Continue meropenem. Surgical e valuation has already been initiated.
[2017-11-25] MEDS: HumaLOG 300 UNITS/3 ML VIAL SC PRN ×2 (17:34→20:27)
[2017-11-25] MEDS ORDERED: Metoprolol Tartrate 5 MG/5 ML VIAL ONE (18:17)
[2017-11-25] MEDS ORDERED: Metoprolol Tartrate 5 MG/5 ML VIAL IVP SCH ×2 (18:30→18:45)
[2017-11-25] MEDS: Atorvastatin Calcium 40 MG TAB PO SCH (20:18)
[2017-11-26] MEDS: Vancomycin HCl 1.5 GM in Sodium Chloride 0.9% 250 ML 300 ML IVPB SCH ×2 (00:35→13:41)
[2017-11-26 05:09] LABS: INR-International Normal Ratio 2.3; Prothrombin Time 25.5 SEC (12.0-14.7)
[2017-11-26 05:13] LABS: Anion Gap 10 mmol/L (10-20); BUN (Urea Nitrogen) 28 mg/dL (8.4-25.7); Calc. Creatinine Clearance 122 mL/min (70-130); Calcium 8.4 mg/dL (7.8-10.44); Carbon Dioxide 22 mmol/L (23-31); Chloride 113 mmol/L (98-107); Estimated GFR-MDRD 62; Glucose 235 mg/dL (83-110); Potassium 3.6 mmol/L (3.5-5.1); Sodium 141 mmol/L (136-145)
[2017-11-26 05:40] LABS: Band 6 % (5-11); Hemoglobin 11.4 g/dL (14.0-18.0); Hypochromia SLIGHT = 6-15 cells (100X) (0-5/hpf); Lymphocytes 6 % (21-51); MDiff Complete? YES; Mean Corpuscular HGB CONC 32.4 g/dL (32.0-36.0); Mean Corpuscular Hemoglobin 30.8 pg (27.0-31.0); Mean Corpuscular Volume 95.1 fL (78.0-98.0); Mean Platelet Volume 8.5 fL (7.4-10.4); Monocytes 6 % (0-10); Neutrophil 82 % (42-75); PLT Morphology Comment Appears Adequate; Platelet Count 173 thou/uL (130-400); RBC Distribution Width 14.4 % (11.5-14.5); Red Blood Cell (RBC) Count 3.72 mill/uL (4.70-6.10); White Blood Cell (WBC) Count 18.3 thou/uL (4.8-10.8)
[2017-11-26] MEDS: Furosemide 40 MG/4 ML VIAL SLOW IVP SCH ×2 (05:44→12:27)
[2017-11-26] MEDS: Levothyroxine Sodium 100 MCG TAB PO SCH (05:45)
[2017-11-26] MEDS: HumaLOG 300 UNITS/3 ML VIAL SC PRN ×3 (05:48→20:34)
--- NOTE | 2017-11-26 08:12 | PRG ---
DATE OF SERVICE: 11/26/2017 This morning he is no longer confused. He denies any pain or shortness of breath. PHYSICAL EXAMINATION: VITAL SIGNS: Temperature is 97, pulse is 94, respiratory rate 22, sats are 90%. He is on a CPAP. B lood pressure 125/80, 108. CHEST: Chest reveals decreased breath sounds, no wheezing. CARDIAC: Normal S1, S2, no gallops. ABDOMEN: Soft, no masses. Renal function has improved. Creatinine is down to 1.15. White count is down to 18,000. IMPRESSION: 1. Sepsis syndrome. All cultures are negative. 2. Sleep apnea. 3. Obesity. PLAN: From a pulmonary standpoint of view, appears to be much improved. Antibiotic per Infectious D isease. Continue neb treatments, supportive care. PT.
[2017-11-26] MEDS: Famotidine 20 MG TAB PO SCH ×2 (08:54→20:30)
[2017-11-26] MEDS: MEROPENEM 1 GM/50 ML 1 GM in Premix Bag 1 BAG IVPB SCH ×2 (08:54→20:30)
[2017-11-26] MEDS: Digoxin 0.125 MG TAB PO SCH (08:54)
[2017-11-26] MEDS: Dronedarone HCl 400 MG TAB PO SCH ×2 (08:54→20:30)
[2017-11-26] MEDS: Oseltamivir 75 MG CAP PO SCH ×2 (08:55→20:30)
--- NOTE | 2017-11-26 09:27 | PRG ---
DATE OF SERVICE: 11/26/2017 SUBJECTIVE: Mr. Nava is a 72-year-old white male who was seen for his acute kidney injury. I fel t that he had a hemodynamically mediated renal dysfunction. Adjustment of his medication was done. Renal function is now much improved and it is now within normal. He did develop some degree of CHF, for that reason, he has been started on Lasix 40 mg IV q.12 hours. He has been diuresing well and fo r this reason, we will plan to decrease his Lasix dose to once a day. No other complaints, no chest pain or shortness of breath. PHYSICAL EXAMINATION: VITAL SIGNS: Blood pressure is 125/108 with a heart rate of 98, respiratory rate 20, pulse ox 94%. Currently on CPAP. GENERAL: Awake, alert, comfortable, obese, not in distress. SKIN: Adequate turgor. HEENT: Pinkish conjunctivae, anicteric sclerae. NECK: No neck mass, no carotid bruits, no JVD. CHEST: No deformities. LUNGS: Clear breath sounds. HEART: Normal sinus rhythm. No murmur, no gallops, no rubs. ABDOMEN: Globular, soft, nontender, no masses. EXTREMITIES: Trace edema, no deformities. MEDICATIONS: 11/26/2017 - Reviewed. LABORATORY DATA: 11/26/2017 - White count 18.2, hemoglobin 11.4, hematocrit 35.4. Chemistries: Sodium 141, potassium 3.6, chloride 103, carbon dioxide 22, BUN 28, creatinine 1.15, gl ucose 235, calcium 8.4. ASSESSMENT AND PLAN: 1. Congestive heart failure - much improved. We will decrease Lasix from 40 mg IV q.12 to once a da y dosing. 2. Acute kidney injury - hemodynamically mediated renal dysfunction. No indication for any dialytic intervention. Renal function is now within normal. 3. Sepsis syndrome - currently on IV antibiotics. Recheck base met and CBC in a.m.
--- NOTE | 2017-11-26 11:04 | PRG ---
DATE OF SERVICE: 11/26/2017 HISTORY OF PRESENT ILLNESS: Mr. Nava is a patient who is well known to myself who was admitted fro m the emergency room on 11/23/2017. In January I had seen him regarding obvious appendicitis, but s econdary to multiple factors had recommended conservative management with nonoperative antibiotic jaciel atment. He recuperated nicely and has had no problems in the past 10 months. The night that he was admitted, he had had diarrhea and confusion. He tells me that, although he had some abdominal discomfort it was never focally in the right lower quadrant. He was hydrated and giv en antibiotics and notes that his pain and issues of his diarrhea quickly resolved. Stool studies ar e reportedly all negative. He notes that he still had some loose and soft bowel movements. He has h ad nothing to eat for the past couple of days. PHYSICAL EXAMINATION: VITAL SIGNS: He is afebrile and has been afebrile during the entire hospitalization. His pulse is i n the 90s. Blood pressure is 125/108 this morning. LUNGS: Clear to auscultation. ABDOMEN: Morbidly obese, but soft. I cannot discern any focal tenderness. Admittedly, the extent o f his obesity makes examination more challenging. LABORATORY STUDIES: Reveals that his white blood cell count was trending downwards. It was 22 yeste rday and is 18.3 today. His hemoglobin is stable at 11.4. Chemistry profile reveals electrolytes wi th minimal abnormalities. His blood sugars are persistently elevated between 230 and 304. X-RAYS: I reviewed his CT scan from presentation. This was not concerning for typical appendicitis. ASSESSMENT AND PLAN: This patient presented to the hospital with nonspecific symptoms and findings. I doubt he ever had appendicitis. He is feeling better and clearly no current surgical indications. It is appropriate to continue him on antibiotics. He is currently receiving meropenem and vancomyc in. For now, I will initiate his diet and this can be advanced according to his tolerance. In light of this patient's age, the extent of his morbid obesity, and his multiple comorbidities, he remains a high risk patient for surgery and is at risk for developing further medical problems. I high ve spoken with him on numerous occasions regarding bariatric surgery and for reasons that I am not ce rtain he tells me he is not interested.
--- NOTE | 2017-11-26 11:37 | PDOC.PN ---
- Subjective Encounter Start Date: 11/26/17 Encounter Start Time: 11:35 Mr. Nava was seen today in follow-up of Abdominal pain. He says the pain has improved. His diet has been advanced to full liquid. He converted back into AFIB yesterday. He says he has a history of AFIB but has been in sinus for several years. - Objective Resuscitation Status: Resuscitation Status FULL:Full Resuscitation MAR Reviewed: Yes Vital Signs & Weight: Vital Signs (12 hours) Temp Pulse Resp BP Pulse Ox 11/26/17 11:13 97.8 F 88 18 119/74 94 L 11/26/17 08:54 98 11/26/17 08:37 94 L 11/26/17 08:34 98 20 94 L 11/26/17 07:28 97.5 F L 94 22 H 125/108 H 93 L 11/26/17 07:26 95 11/26/17 03:00 97.1 F L 84 20 128/86 91 L 11/26/17 00:06 113 H 16 93 L Weight Weight 331 lb 1.6 oz I&O: 11/25/17 11/26/17 11/27/17 06:59 06:59 06:59 Intake Total 2876 1080 Output Total 675 4050 Balance 2201 -2970 Result Diagrams: 11/26/17 04:24 11/26/17 04:24 Additional Labs: Accuchecks 11/26/17 11/26/17 11/25/17 10:25 05:44 20:23 POC Glucose 210 H 224 H 304 H 11/25/17 16:37 POC Glucose 260 H Phys Exam - Physical Examination HEENT: PERRLA Respiratory: no rales, no rhonchi, wheezing present, clear to auscultation bilateral + occasional wheeze Cardiovascular: no rub, irregular 2/6 systolic murmur Gastrointestinal: soft, non-tender, no distention, positive bowel sounds Musculoskeletal: edema present Psychiatric: normal affect, A&O x 3 Dx/Plan (1) Sepsis Code(s): A41.9 - SEPSIS, UNSPECIFIED ORGANISM Status: Acute (2) Acute renal failure Status: Acute (3) RLQ abdominal pain Code(s): R10.31 - RIGHT LOWER QUADRANT PAIN Status: Acute Comment: Secondary to #1, pain control, see above (4) DM II (diabetes mellitus, type II), controlled Code(s): E11.9 - TYPE 2 DIABETES MELLITUS WITHOUT COMPLICATIONS Status: Chronic Comment: Continue Glipizide 5mg daily, ISS (5) Obesity, morbid Code(s): E66.01 - MORBID (SEVERE) OBESITY DUE TO EXCESS CALORIES Status: Chronic (6) Atrial fibrillation Code(s): I48.91 - UNSPECIFIED ATRIAL FIBRILLATION Status: Acute (7) Chronic anticoagulation Code(s): Z79.01 - BACK PADDER (CURRENT) USE OF ANTICOAGULANTS Status: Chronic Comment: Hold anticoagulation give elevated INR (8) Acute respiratory failure with hypoxia Code(s): J96.01 - ACUTE RESPIRATORY FAILURE WITH HYPOXIA Status: Resolved - Plan * Sepsis- ? etiology- slowly improving- WBC count is trending down- will continue Meropenem and Vancomycin * Abdominal Pain- resolving- Surgery recommendations noted- no surgery is planned- and his diet has been advanced * AFIB- he has converted into AFIB yesterday evening, will continue Multaq and Digoxin, Cardiology will be notified of the change * DM- uncontrolled- will re-start Metformin now that he is eating * Acute renal Failure- improved * ANMOL- continue CPAP when asleep * Ambulate.
[2017-11-26] MEDS: Atorvastatin Calcium 40 MG TAB PO SCH (20:30)
[2017-11-27 04:20] LABS: Prothrombin Time 22.7 SEC (12.0-14.7)
[2017-11-27 04:44] LABS: Mean Corpuscular Hemoglobin 31.3 pg (27.0-31.0); Mean Corpuscular Volume 94.7 fL (78.0-98.0); Mean Platelet Volume 7.9 fL (7.4-10.4); Platelet Count 158 thou/uL (130-400); RBC Distribution Width 14.1 % (11.5-14.5); Red Blood Cell (RBC) Count 3.82 mill/uL (4.70-6.10)
[2017-11-27 04:45] LABS: Band 5 % (5-11); Lymphocytes 8 % (21-51); MDiff Complete? YES; Monocytes 3 % (0-10); Neutrophil 84 % (42-75); PLT Morphology Comment Appears Adequate
[2017-11-27 04:59] LABS: Anion Gap 12 mmol/L (10-20); BUN (Urea Nitrogen) 23 mg/dL (8.4-25.7); Calc. Creatinine Clearance 141 mL/min (70-130); Calcium 8.3 mg/dL (7.8-10.44); Carbon Dioxide 22 mmol/L (23-31); Chloride 109 mmol/L (98-107); Estimated GFR-MDRD 74; Glucose 170 mg/dL (83-110); Potassium 3.2 mmol/L (3.5-5.1); Sodium 140 mmol/L (136-145)
[2017-11-27] MEDS: HumaLOG 300 UNITS/3 ML VIAL SC PRN ×2 (05:26→21:47)
[2017-11-27] MEDS: Levothyroxine Sodium 100 MCG TAB PO SCH (05:26)
[2017-11-27] MEDS ORDERED: metFORMIN 500 MG TAB PO SCH (08:00)
[2017-11-27] MEDS: Dronedarone HCl 400 MG TAB PO SCH ×2 (08:48→21:46)
[2017-11-27] MEDS: Famotidine 20 MG TAB PO SCH ×2 (08:48→21:46)
[2017-11-27] MEDS: Digoxin 0.125 MG TAB PO SCH (08:48)
[2017-11-27] MEDS: MEROPENEM 1 GM/50 ML 1 GM in Premix Bag 1 BAG IVPB SCH ×2 (08:49→21:45)
[2017-11-27] MEDS: Furosemide 40 MG/4 ML VIAL SLOW IVP SCH (08:49)
[2017-11-27] MEDS: Oseltamivir 75 MG CAP PO SCH ×2 (08:49→21:46)
--- NOTE | 2017-11-27 09:56 | PRG ---
DATE OF SERVICE: 11/27/2017 SUBJECTIVE: This morning, he is awake, alert, responsive. OBJECTIVE: VITAL SIGNS: His sats are 95 on 3 liters, temperature is 97, blood pressure 122/71. He is 327 pound s. He is severely deconditioned. He is not walking. PT is being ordered. CHEST: Chest reveals decreased breath sounds, no wheezing. CARDIAC: Normal S1, S2. ABDOMEN: Soft, no masses. LABORATORY DATA: White count 12,000, H&H 12 and 36, platelet count is normal. INR is 2. IMPRESSION: Obstructive sleep apnea, morbid obesity, severe deconditioning, supraventricular tachyca rdia. All his cultures are negative. Probably can deescalate his antibiotics. Cardiology to cardiovert hi m today.
[2017-11-27] MEDS ORDERED: Potassium Chloride 20 MEQ TAB PO SCH (15:45)
--- NOTE | 2017-11-27 16:21 | PDOC.PN ---
- Subjective Encounter Start Date: 11/27/17 Encounter Start Time: 16:19 Mr. Nava was seen today in follow-up of abdominal pain and sepsis. He says he feels much better now. He has tolerated a full liquid diet. - Objective Resuscitation Status: Resuscitation Status FULL:Full Resuscitation MAR Reviewed: Yes Vital Signs & Weight: Vital Signs (12 hours) Temp Pulse Resp BP BP Pulse Ox 11/27/17 15:56 98.4 F 100 20 122/93 H 95 11/27/17 13:37 94 16 11/27/17 11:27 98.2 F 99 20 142/93 H 94 L 11/27/17 08:48 86 11/27/17 07:29 95 11/27/17 07:00 97.9 F 86 20 122/71 98 11/27/17 06:36 88 16 Weight Weight 327 lb I&O: 11/26/17 11/27/17 11/28/17 06:59 06:59 06:59 Intake Total 1080 1800 Output Total 4050 4600 Balance -2970 -2800 Result Diagrams: 11/27/17 03:57 11/27/17 03:57 Additional Labs: Accuchecks 11/27/17 11/27/17 11/26/17 11:32 05:26 20:29 POC Glucose 205 H 154 H 212 H 11/26/17 16:29 POC Glucose 203 H Phys Exam - Physical Examination HEENT: PERRLA Respiratory: no wheezing, no rales, no rhonchi, clear to auscultation bilateral Cardiovascular: RRR, no rub, irregular 2/6 systolic murmur Gastrointestinal: soft, non-tender, no distention, positive bowel sounds Musculoskeletal: pulses present, edema present Chronic venous stasis changes Psychiatric: normal affect, A&O x 3 Skin: normal turgor, cap refill <2 seconds Dx/Plan (1) Sepsis Code(s): A41.9 - SEPSIS, UNSPECIFIED ORGANISM Status: Acute (2) Acute renal failure Status: Acute (3) RLQ abdominal pain Code(s): R10.31 - RIGHT LOWER QUADRANT PAIN Status: Acute Comment: Secondary to #1, pain control, see above (4) DM II (diabetes mellitus, type II), controlled Code(s): E11.9 - TYPE 2 DIABETES MELLITUS WITHOUT COMPLICATIONS Status: Chronic Comment: Continue Glipizide 5mg daily, ISS (5) Obesity, morbid Code(s): E66.01 - MORBID (SEVERE) OBESITY DUE TO EXCESS CALORIES Status: Chronic (6) Atrial fibrillation Code(s): I48.91 - UNSPECIFIED ATRIAL FIBRILLATION Status: Acute (7) Chronic anticoagulation Code(s): Z79.01 - [facility] (CURRENT) USE OF ANTICOAGULANTS Status: Chronic Comment: Hold anticoagulation give elevated INR (8) Acute respiratory failure with hypoxia Code(s): J96.01 - ACUTE RESPIRATORY FAILURE WITH HYPOXIA Status: Resolved - Plan * Sepsis- Improving - his WBC count has improved, as well as his clinical symptoms ( diarrhea abdominal pain). Will consider transition to oral antibiotics in 1-2 days * Abdominal Pain- resolved * AFIB- he continues in AFIB- his heart rate has been variable- possible cardioversion if this persists * Acute Kidney injury- resolved * DM- blood glucose is stable * Chronic anticoagulation- INR is 2.0- plan is to convert to Eliquis, in preparation for possible cardioversion.
[2017-11-27] MEDS: Atorvastatin Calcium 40 MG TAB PO SCH (21:46)
[2017-11-27] MEDS: Apixaban 5 MG TAB PO SCH (21:46)
[2017-11-28] MEDS: Levothyroxine Sodium 100 MCG TAB PO SCH (05:38)
[2017-11-28 06:21] LABS: Anion Gap 12 mmol/L (10-20); BUN (Urea Nitrogen) 21 mg/dL (8.4-25.7); Calc. Creatinine Clearance 132 mL/min (70-130); Calcium 8.5 mg/dL (7.8-10.44); Carbon Dioxide 26 mmol/L (23-31); Chloride 105 mmol/L (98-107); Estimated GFR-MDRD 70; Glucose 141 mg/dL (83-110); Potassium 3.5 mmol/L (3.5-5.1); Sodium 139 mmol/L (136-145)
[2017-11-28 06:28] LABS: Band 2 % (5-11); Hemoglobin 12.7 g/dL (14.0-18.0); Hypochromia SLIGHT = 6-15 cells (100X) (0-5/hpf); Lymphocytes 3 % (21-51); MDiff Complete? YES; Mean Corpuscular HGB CONC 32.9 g/dL (32.0-36.0); Mean Corpuscular Hemoglobin 31.4 pg (27.0-31.0); Mean Corpuscular Volume 95.3 fL (78.0-98.0); Mean Platelet Volume 8.1 fL (7.4-10.4); Monocytes 7 % (0-10); Neutrophil 88 % (42-75); Platelet Count 184 thou/uL (130-400); RBC Distribution Width 13.8 % (11.5-14.5); Red Blood Cell (RBC) Count 4.05 mill/uL (4.70-6.10); White Blood Cell (WBC) Count 11.7 thou/uL (4.8-10.8)
--- NOTE | 2017-11-28 08:10 | PRG ---
DATE OF SERVICE: 11/28/2017 SUBJECTIVE: He is doing well. He is on his CPAP. No respiratory distress. OBJECTIVE: VITAL SIGNS: Sats are 94 on 2 liters, temperature 98, blood pressure 116/74, pulse is 95 regular. CHEST: Reveals decreased breath sounds, no wheezing. CARDIAC: Normal S1, S2. No gallops. ABDOMEN: Soft, no masses. LABORATORY DATA: White count is down to 11,000, normal. IMPRESSION: 1. Chronic obstructive pulmonary disease. 2. Sleep apnea. 3. Supraventricular tachycardia. 4. Abdominal sepsis presumably though all cultures are negative. PLAN: Probably, his antibiotics can be deescalated. Await input from Infectious Disease. He is to undergo cardioversion in the next 24-48 hours.
[2017-11-28] MEDS: Digoxin 0.125 MG TAB PO SCH (08:18)
[2017-11-28] MEDS: Dronedarone HCl 400 MG TAB PO SCH ×2 (08:18→20:25)
[2017-11-28] MEDS: Potassium Chloride 20 MEQ TAB PO SCH (08:18)
[2017-11-28] MEDS: Famotidine 20 MG TAB PO SCH ×2 (08:18→20:25)
[2017-11-28] MEDS: Apixaban 5 MG TAB PO SCH ×2 (08:18→20:25)
[2017-11-28] MEDS: MEROPENEM 1 GM/50 ML 1 GM in Premix Bag 1 BAG IVPB SCH ×2 (08:19→20:25)
[2017-11-28] MEDS: Furosemide 40 MG/4 ML VIAL SLOW IVP SCH (08:19)
--- NOTE | 2017-11-28 08:57 | PDOC.PN ---
- Subjective Encounter Start Date: 11/28/17 Encounter Start Time: 08:55 Mr. Nava was seen today in follow-up of sepsis and abdominal pain. He is sitting up eating when I came to see him today. He denies abdominal pain, no nausea or vomiting. - Objective Resuscitation Status: Resuscitation Status FULL:Full Resuscitation MAR Reviewed: Yes Vital Signs & Weight: Vital Signs (12 hours) Temp Pulse Resp BP Pulse Ox 11/28/17 08:18 91 11/28/17 07:19 94 L 11/28/17 06:40 91 14 93 L 11/28/17 04:00 98.2 F 98 23 H 116/74 95 11/28/17 00:00 97.8 F 90 25 H 135/90 94 L Weight Weight 325 lb 4.8 oz I&O: 11/27/17 11/28/17 11/29/17 06:59 06:59 06:59 Intake Total 1800 1950 Output Total 4600 5400 Balance -2800 -3450 Result Diagrams: 11/28/17 04:46 11/28/17 04:46 Additional Labs: Accuchecks 11/28/17 11/27/17 11/27/17 05:37 19:57 16:37 POC Glucose 139 H 220 H 133 H 11/27/17 11:32 POC Glucose 205 H Phys Exam - Physical Examination HEENT: PERRLA Respiratory: no rales, no rhonchi, wheezing present + occasional wheeze which clears with cough Cardiovascular: no rub, irregular Gastrointestinal: soft, non-tender, no distention, positive bowel sounds Musculoskeletal: pulses present, edema present + chronic venous stasis changes Neurological: non-focal, moves all 4 limbs Dx/Plan (1) Sepsis Code(s): A41.9 - SEPSIS, UNSPECIFIED ORGANISM Status: Acute (2) Acute renal failure Status: Resolved (3) RLQ abdominal pain Code(s): R10.31 - RIGHT LOWER QUADRANT PAIN Status: Resolved Comment: Secondary to #1, pain control, see above (4) DM II (diabetes mellitus, type II), controlled Code(s): E11.9 - TYPE 2 DIABETES MELLITUS WITHOUT COMPLICATIONS Status: Chronic Comment: Continue Glipizide 5mg daily, ISS (5) Obesity, morbid Code(s): E66.01 - MORBID (SEVERE) OBESITY DUE TO EXCESS CALORIES Status: Chronic (6) Atrial fibrillation Code(s): I48.91 - UNSPECIFIED ATRIAL FIBRILLATION Status: Acute (7) Chronic anticoagulation Code(s): Z79.01 - LONGTERM (CURRENT) USE OF ANTICOAGULANTS Status: Chronic Comment: Hold anticoagulation give elevated INR (8) Acute respiratory failure with hypoxia Code(s): J96.01 - ACUTE RESPIRATORY FAILURE WITH HYPOXIA Status: Resolved (9) ANMOL (obstructive sleep apnea) Code(s): G47.33 - OBSTRUCTIVE SLEEP APNEA (ADULT) (PEDIATRIC) Status: Chronic - Plan * Sepsis- resolving- continue Meropenem and Vancomycin- await further recommendations from ID * AFIB- he continues in AFIB- discussed with Dr. Payne- plan is for Cardioversion tomorrow * BRENDAN- resolved * DM- blood glucose is controlled. * Chronic Anticoagulation- he has been changed to Eliquis * ANMOL- stable on Bipap- will add Incentive Spirometry during the day ( Obesity Hypoventillation)
[2017-11-28] MEDS: HumaLOG 300 UNITS/3 ML VIAL SC PRN ×3 (11:40→21:47)
--- NOTE | 2017-11-28 18:47 | PRG ---
DATE OF SERVICE: 11/28/2017 HISTORY OF PRESENT ILLNESS: Mr. Nava was seen in followup in regards to a concern regarding append icitis. When I first saw him yesterday, he had no substantial abdominal pain. His white blood cell count was decreasing. He had appropriate appetite. He has tolerated full liquids overnight. He is currently ambulating. On examination, he has no focal tenderness. His white blood cell count today is 11.7. PLAN: In summary, he has no surgical concerns and I doubt that he ever really had appendicitis. I s uspect that his elevated white blood cell count was from another etiology. It would be very unlikely for appendicitis to result in diary also. I have advanced him up to a consistent carbohydrate diet. I will see him in the future as needed as I do not think that he has any surgical issues. From another standpoint, his morbid obesity with his weight well in excess of 300 pounds and has mult iple comorbidities puts him at high risk for ongoing medical problems. He would likely be a wonderfu l candidate for a laparoscopic bariatric procedure, but he tells me he is not interested at this time .
[2017-11-28] MEDS: Atorvastatin Calcium 40 MG TAB PO SCH (20:25)
[2017-11-29 05:13] LABS: Band 8 % (5-11); Eosinophils 2 % (0-10); Hemoglobin 13.6 g/dL (14.0-18.0); Lymphocytes 21 % (21-51); MDiff Complete? YES; Mean Corpuscular Hemoglobin 30.9 pg (27.0-31.0); Mean Corpuscular Volume 93.8 fL (78.0-98.0); Mean Platelet Volume 7.9 fL (7.4-10.4); Monocytes 11 % (0-10); Neutrophil 58 % (42-75); Platelet Count 213 thou/uL (130-400); RBC Distribution Width 13.9 % (11.5-14.5); Red Blood Cell (RBC) Count 4.41 mill/uL (4.70-6.10); White Blood Cell (WBC) Count 11.5 thou/uL (4.8-10.8)
[2017-11-29] MEDS: Levothyroxine Sodium 100 MCG TAB PO SCH (06:04)
--- NOTE | 2017-11-29 06:14 | EKG ---
Test Reason : Blood Pressure : / mmHG Vent. Rate : 108 BPM Atrial Rate : 108 BPM P-R Int : 000 ms QRS Dur : 090 ms QT Int : 332 ms P-R-T Axes : 000 007 180 degrees QTc Int : 444 ms Atrial fibrillation with rapid ventricular response Possible Inferior infarct , age undetermined Abnormal ECG When compared with ECG of 18-JUL-1996 12:58, Atrial fibrillation has replaced Sinus Tachycardia Significant changes have occurred Confirmed by CURT GREEN ([id number]) on 11/29/2017 6:13:49 AM Referred By: Confirmed By:CURT GREEN
--- NOTE | 2017-11-29 09:09 | PRG ---
DATE OF SERVICE: 11/29/2017 HISTORY: This is a 72-year-old gentleman who is to undergo a cardioversion this morning. He denies any shortness of breath, coughing or wheezing. He is having frequent epistaxis, probably from his CP AP. His mucosa is dry. PHYSICAL EXAMINATION: VITAL SIGNS: His temperature is 97, pulse was 108, respirations 21, sats 90%, blood pressure 130/86. CHEST: No wheezing, no crackles. CARDIAC: Normal S1-S2. No gallops. ABDOMEN: Without mass. LABORATORY: His white count 11,000, H&H 13 and 41. IMPRESSION: 1. Supraventricular tachycardia for cardioversion. 2. Abdominal pain, resolved. 3. Appendicitis. 4. Sleep apnea. 5. Epistaxis. PLAN: I have added some saline nasal spray to his regime. I would deescalate his antibiotics. Marion dannyroxy will continue to follow while he is in the IMCU.
[2017-11-29] MEDS ORDERED: PROPOFOL 20 ML ONE (09:39)
[2017-11-29] MEDS: Potassium Chloride 20 MEQ TAB PO SCH ×2 (09:53→13:08)
[2017-11-29] MEDS: Apixaban 5 MG TAB PO SCH ×2 (09:53→13:13)
[2017-11-29] MEDS: Famotidine 20 MG TAB PO SCH ×2 (09:54→13:07)
[2017-11-29] MEDS: Dronedarone HCl 400 MG TAB PO SCH ×2 (09:54→13:06)
[2017-11-29] MEDS: Sodium Chloride 0.65% Nasal 44 ML BOT EA NARE SCH ×3 (09:54→15:40)
[2017-11-29] MEDS: MEROPENEM 1 GM/50 ML 1 GM in Premix Bag 1 BAG IVPB SCH ×2 (09:54→13:11)
[2017-11-29] MEDS: Losartan 25 MG TAB PO SCH ×2 (09:54→13:06)
[2017-11-29] MEDS: Digoxin 0.125 MG TAB PO SCH ×2 (09:54→13:08)
[2017-11-29] MEDS ORDERED: Ondansetron HCl/PF 4 MG/2 ML Vial IVP PRN (10:40)
[2017-11-29] MEDS ORDERED: Promethazine HCl 25 MG/ML VIAL IM/IV PRN (10:40)
[2017-11-29] MEDS ORDERED: Furosemide 40 MG TAB PO SCH (13:30)
--- NOTE | 2017-11-29 15:45 | PDOC.PN ---
- Subjective Encounter Start Date: 11/29/17 Encounter Start Time: 15:44 Mr. Nava was seen today in follow-up of sepsis and abdominal pain. He is clinically stable. He is back from Cardioversion, and is now in sinus rhythm. - Objective Resuscitation Status: Resuscitation Status FULL:Full Resuscitation MAR Reviewed: Yes Vital Signs & Weight: Vital Signs (12 hours) Temp Pulse Resp BP Pulse Ox 11/29/17 07:47 97.8 F 101 H 21 H 138/86 90 L 11/29/17 07:46 103 H 18 92 L 11/29/17 04:00 97.8 F 86 31 H 150/88 H 93 L Weight Weight 319 lb 8 oz I&O: 11/28/17 11/29/17 11/30/17 06:59 06:59 06:59 Intake Total 1950 1065 150 Output Total 5400 4825 0 Balance -3450 -3760 150 Result Diagrams: 11/29/17 03:29 11/28/17 04:46 Additional Labs: Accuchecks 11/29/17 11/28/17 11/28/17 11:40 20:22 16:43 POC Glucose 153 H 261 H 161 H Phys Exam - Physical Examination HEENT: PERRLA Respiratory: no wheezing, no rales, no rhonchi, clear to auscultation bilateral Cardiovascular: RRR, no significant murmur, no rub Gastrointestinal: soft, non-tender, no distention, positive bowel sounds Musculoskeletal: edema present trace pedal edema Dx/Plan (1) Sepsis Code(s): A41.9 - SEPSIS, UNSPECIFIED ORGANISM Status: Acute (2) Acute renal failure Status: Resolved (3) RLQ abdominal pain Code(s): R10.31 - RIGHT LOWER QUADRANT PAIN Status: Resolved Comment: Secondary to #1, pain control, see above (4) DM II (diabetes mellitus, type II), controlled Code(s): E11.9 - TYPE 2 DIABETES MELLITUS WITHOUT COMPLICATIONS Status: Chronic Comment: Continue Glipizide 5mg daily, ISS (5) Obesity, morbid Code(s): E66.01 - MORBID (SEVERE) OBESITY DUE TO EXCESS CALORIES Status: Chronic (6) Atrial fibrillation Code(s): I48.91 - UNSPECIFIED ATRIAL FIBRILLATION Status: Acute (7) Chronic anticoagulation Code(s): Z79.01 - ASSISTED (CURRENT) USE OF ANTICOAGULANTS Status: Chronic Comment: Hold anticoagulation give elevated INR (8) Acute respiratory failure with hypoxia Code(s): J96.01 - ACUTE RESPIRATORY FAILURE WITH HYPOXIA Status: Resolved (9) ANMOL (obstructive sleep apnea) Code(s): G47.33 - OBSTRUCTIVE SLEEP APNEA (ADULT) (PEDIATRIC) Status: Chronic - Plan * Sepsis- clinically improved * AFIB- he is post cardioversion and is now in sinus * DM- stable * He is stable for discharge home .
[2017-11-29 15:51] VITALS: BP 159/86; TEMP 98.1
[2017-11-30] MEDS ORDERED: Furosemide 40 MG TAB PO SCH (07:30)
--- NOTE | 2017-11-30 13:19 | DIS ---
DATE OF ADMISSION: 11/24/2017 DATE OF DISCHARGE: 11/29/2017 PRIMARY CARE PHYSICIAN: Mariel Doyle M.D. DISCHARGE DISPOSITION: Home. PRIMARY DISCHARGE DIAGNOSES: 1. Sepsis, resolved. 2. Abdominal pain, questionable etiology. 3. Atrial fibrillation. 4. Hypothyroidism. 5. Diabetes mellitus, type 2. 6. Morbid obesity. 7. Hypertension. 8. Obstructive sleep apnea. 9. Chronic anticoagulation. 10. Acute respiratory failure with hypoxemia. DISCHARGE MEDICATIONS: Include ciprofloxacin 500 mg twice a day for 10 days as well as Flagyl 500 mg t.i.d. for 10 days, losartan 50 mg daily, digoxin 0.125 mg daily, CoQ10 100 mg daily, potassium chlo ride 10 mEq as directed, Nitrostat 0.4 sublingual as needed, metoprolol succinate 25 mg daily, levoth yroxine 125 mcg daily, glipizide 5 mg daily, furosemide 40 mg as directed, Multaq 400 mg twice a day, Zetia 10 mg daily, vitamin B12 of 5000 mcg daily and Lipitor 40 mg daily. PROCEDURES DONE DURING ADMISSION: The patient had a CT scan of the brain showing no acute intracrani al abnormality. There was some small generalized cerebellar and cerebral atrophy. He had a CT scan of the abdomen and pelvis which showed findings of hepatosplenomegaly with fatty liver. There was a left nephrolithiasis. There is a tubular structure seen adjacent to the cecum which may reflect a re tained appendix, it had similar appearance in a previous CT scan evidence of diverticulosis. CODE STATUS: FULL CODE. ALLERGIES: ADHESIVE TAPE, CODEINE, and LATEX. HOSPITAL COURSE: Mr. Nava is a pleasant 72-year-old gentleman who presented to the emergency room with complaints of altered mental status and diarrhea. He also noted some abdominal pain, which andrew me more prominent when he arrived at the hospital. The diarrhea actually resolved shortly after bein g admitted. Stool studies were sent and these were negative for routine stool cultures as well as Ca mpylobacter and Shiga toxin. There was some concern that he could have a recurrence of his appendici tis. For this reason, General Surgery was consulted as well as Infectious Disease Service due to sep sis which was not readily identified. The general surgeon did not feel that the abdominal pain was r elated to his septic picture and did not recommend any surgery. He had an elevated white count and s ome hypotension initially, but this all improved with antibiotics and fluid administration. He also had an acute kidney injury which improved. Prior to discharge, the patient developed recurrence of a trial fibrillation. He was seen by Cardiology and ultimately had to undergo electrical cardioversion to get him back into sinus rhythm. He was taken off of Coumadin and placed on Eliquis during this t dinora and he is to follow up with his primary care physician as well as all of his specialist in the ou tpatient setting. He is to follow up with Dr. Arthur in approximately 2 weeks for reevaluation and [facility] Dr. Payne and Dr. Hutchinson as instructed.
[2017-11-30] MEDS ORDERED: Warfarin Sodium 2.5 MG TAB PO SCH (17:00)
--- NOTE | 2017-11-30 23:48 | ECHO ---
This is a 72-year-old gentleman with paroxysmal atrial fibrillation. DESCRIPTION OF PROCEDURE: The patient taken to the PACU, the patient sedated by anesthesiology. Transesophageal probe was place d in the distal esophagus and stomach. Echocardiographic images were obtained and the transesophagea l probe was removed. FINDINGS: 1. Normal left ventricular systolic function. 2. Normal mitral and aortic valves. 3. Mild mitral regurgitation. 4. Mild tricuspid regurgitation. 5. No thrombus is noted in the left atrium or left atrial appendage. 6. Atherosclerotic debris in the descending aorta. IMPRESSION: No formed thrombus in the left atrium or left atrial appendage.
--- NOTE | 2017-11-30 23:54 | OP ---
Direct current cardioversion. DESCRIPTION OF PROCEDURE: The patient remained sedated after transesophageal echo. With 200 joules, he returned promptly to si nus rhythm without any significant bradycardia. The patient tolerated the procedure well.
== END 2017-11-29 17:31 | disposition home or self-care (01) | DRG 871 ==
LOC: ERS 20:01 → IMCU/EMU 11-24 01:15
PROVIDERS: ADMIT Internal Medicine; ATTEND Internal Medicine
PROC: 5A09457 Assistance with Respiratory Ventilation, 24-96 Consecutive Hours, Continuous Positive Airway Pressure (ICD-10-PCS; 2017-11-24)
PROC: 5A2204Z Restoration of Cardiac Rhythm, Single (ICD-10-PCS; principal; 2017-11-29)
DX: A41.9 Sepsis, unspecified organism (principal); J96.01 Acute respiratory failure with hypoxia; Z68.42 Body mass index [BMI] 45.0-49.9, adult; N17.9 Acute kidney failure, unspecified; E66.2 Morbid (severe) obesity with alveolar hypoventilation; I47.1 Supraventricular tachycardia; E03.9 Hypothyroidism, unspecified; E11.9 Type 2 diabetes mellitus without complications; Z79.84 Long term (current) use of oral hypoglycemic drugs; I25.2 Old myocardial infarction; E78.5 Hyperlipidemia, unspecified; I48.0 Paroxysmal atrial fibrillation; Z79.01 Long term (current) use of anticoagulants; I25.10 Atherosclerotic heart disease of native coronary artery without angina pectoris; Z87.891 Personal history of nicotine dependence; Z88.5 Allergy status to narcotic agent; I34.0 Nonrheumatic mitral (valve) insufficiency; K76.0 Fatty (change of) liver, not elsewhere classified; R10.31 Right lower quadrant pain; R04.0 Epistaxis; I11.0 Hypertensive heart disease with heart failure; I50.9 Heart failure, unspecified
CPT/HCPCS: 36415; 36416; 51701; 70450; 71045; 74177; 80048; 80053; 80202; 81001; 82140; 82306; 82553; 82570; 82805; 83605; 83690; 84300; 84484; 85025; 85610; 85730; 87040; 87045; 87046; 87324; 87449; 87633; 87804; 87899; 92960; 93005; 93010; 93312; 94640; 96361; 96365; 96367; 96375; G0103; J0696; J1200; J1940; J2185; J2543; J2704; J2920; J2930; J3370; J7050; J7620; P9047; Q0162

== ENCOUNTER 2018-11-13 14:30 | Outpatient (CLI) | payer MEDICARE ==
--- NOTE | 2018-11-13 15:45 | ULT ---
BILATERAL RENAL ULTRASOUND: HISTORY: Hematuria FINDINGS: Exam is limited due to patient's body habitus. The right kidney is poorly visualized and likely measures 9 cm in length. Left kidney measures 11 cm in length. No definite hydronephrosis is seen on either side. A mass cannot be excluded on this study. The urinary bladder is unremarkable. Bilateral ureteral jets are present. IMPRESSION: No evidence of high-grade obstruction.
== END 2018-11-13 14:31 | disposition home or self-care (01) ==
LOC: ULT 14:30
PROVIDERS: ATTEND Internal Medicine
DX: R31.9 Hematuria, unspecified (principal)
CPT/HCPCS: 76770

== ENCOUNTER 2019-07-21 12:04 | Outpatient (CLI) | payer MEDICARE ==
[2019-07-21] MEDS ORDERED: Iopamidol-370 76% 500 ML 1 ML ONE (12:51)
--- NOTE | 2019-07-21 13:45 | CT ---
CT OF THE ABDOMEN AND PELVIS WITH AND WITHOUT IV CONTRAST INDICATION: Hematuria TECHNIQUE: Noncontrast CT of the abdomen and pelvis was performed. Postcontrast images were obtained in the nephrographic phase and delayed phase. Axial and coronal reformatted images were constructed from the raw data. COMPARISON: CT the abdomen and pelvis with contrast dated November 23, 2017 FINDINGS: ABDOMEN: Lung bases: Clear Liver: No focal lesion. Gallbladder: Normal appearing. Pancreas: Normal. Adrenal glands: Normal. Spleen: There is stable splenomegaly measuring 13.9 cm. Kidneys and ureters: There is a stable 1.1 cm calculus within the mid to inferior pole of the left ki dney. No ureteral calculus or hydronephrosis is demonstrated. No solid renal lesion is identified. No gross urothelial lesion is identified. Vasculature: There are mild vascular calcifications seen involving the visualized vasculature. Lymph nodes:There is stable keyona mesentery seen within the central mesenteric root with shotty appea ring lymph nodes. No pathologically enlarged lymph nodes are evident. Free fluid in abdomen:No free fluid is evident. PELVIS: Small and large bowel: There is colonic diverticulosis without evidence of active diverticulitis. The small bowel is of normal caliber. Appendix:Normal Bladder: Normal. Rectal and perirectal soft tissues:Normal. Reproductive structures: Normal. The prostate measures 4.1 cm. Free fluid in pelvis: No free fluid is evident. Lymphadenopathy pelvis: No lymphadenopathy is evident. Osseous structures: No acute osseous abnormality. No destructive osteolytic or osteoblastic lesion i s identified. There is scattered degenerative and osteoarthritic changes. Soft tissues:Normal. IMPRESSION: 1. No acute abnormality. 2. Stable left nephrolithiasis 3. Stable mild splenomegaly 4. Stable nonspecific mild central keyona mesentery.
== END 2019-07-21 12:05 | disposition home or self-care (01) ==
LOC: BICCT 12:04
PROVIDERS: ATTEND Urology
DX: R31.29 Other microscopic hematuria (principal); N20.0 Calculus of kidney; N40.1 Benign prostatic hyperplasia with lower urinary tract symptoms; R39.14 Feeling of incomplete bladder emptying; R16.1 Splenomegaly, not elsewhere classified; I88.0 Nonspecific mesenteric lymphadenitis
CPT/HCPCS: 74178; 82565; Q9967

== ENCOUNTER 2019-10-29 14:14 | Outpatient (CLI) | payer MEDICARE ==
--- NOTE | 2019-10-29 14:57 | RAD ---
KUB: 10/29/2019 comparison 07/21/2019 CT abdomen and pelvis HISTORY: Renal stone disease Findings: Body habitus limits detailed assessment. There is significant stool within the colon. There is a calcification in the mid left abdomen superior to the left iliac wing which measures appro ximately 1.2 cm in transverse dimension, most consistent with a stone within the left kidney. No calcification overlies the expected region of the right kidney. There is multilevel lumbar spine dege nerative change, especially inferiorly. IMPRESSION: 1.2 cm calcification within the mid left abdomen consistent with a stable left renal calc ulus.
== END 2019-10-29 14:15 | disposition home or self-care (01) ==
LOC: BICRAD 14:14
PROVIDERS: ATTEND Urology
DX: N20.0 Calculus of kidney (principal); R93.5 Abnormal findings on diagnostic imaging of other abdominal regions, including retroperitoneum
CPT/HCPCS: 74018; 80048; 81001; 87086; G0103; 36415

== ENCOUNTER 2020-02-25 15:22 | Outpatient (CLI) | payer MEDICARE ==
--- NOTE | 2020-02-25 15:57 | RAD ---
SUPINE ABDOMEN: 02/25/20 HISTORY: Microscopic hematuria. Follow-up kidney stone. COMPARISON: Comparison made to supine abdomen of 10/29/19. The 1 cm calcification which was previously noted in the left abdomen is again seen. This area is obs cured by colon content with gas and stool obscuring this region; however, this calcification does dipesh ear stable from the prior study. Gaseous distention of the stomach. No other calcification identified . IMPRESSION: Bowel content obscures both renal outlines. The previously noted calcification in the left abdomen ap pears stable. POS: OFF
== END 2020-02-25 15:23 | disposition home or self-care (01) ==
LOC: BICRAD 15:22
PROVIDERS: ATTEND Urology
DX: N20.0 Calculus of kidney (principal); R31.29 Other microscopic hematuria; R93.5 Abnormal findings on diagnostic imaging of other abdominal regions, including retroperitoneum
CPT/HCPCS: 74018

== ENCOUNTER 2021-07-25 11:54 | Outpatient (CLI) | payer MEDICARE | END 2021-07-25 11:55 | disposition home or self-care (01) | LOC: BICCT 11:54 | PROVIDERS: ATTEND Urology | DX: Z12.5 Encounter for screening for malignant neoplasm of prostate (principal); R31.29 Other microscopic hematuria; R81 Glycosuria; E11.9 Type 2 diabetes mellitus without complications; N20.0 Calculus of kidney; M47.816 Spondylosis without myelopathy or radiculopathy, lumbar region | CPT/HCPCS: 74176 ==

== ENCOUNTER 2021-07-25 12:02 | Outpatient (CLI) | payer MEDICARE | END 2021-07-25 12:03 | disposition home or self-care (01) | LOC: BICRAD 12:02 | PROVIDERS: ATTEND Internal Medicine | DX: I10 Essential (primary) hypertension (principal); R06.00 Dyspnea, unspecified | CPT/HCPCS: 71046 ==

== ENCOUNTER 2021-10-12 12:40 | Outpatient (CLI) | payer MEDICARE | END 2021-10-12 12:41 | disposition home or self-care (01) | LOC: BICRAD 12:40 | PROVIDERS: ATTEND Nurse Practitioner Family | DX: R06.02 Shortness of breath (principal) | CPT/HCPCS: 36415; 71046; 80048; 85025 ==

== ENCOUNTER 2022-01-31 21:22 | Inpatient (IN) | payer MEDICARE ==
[2022-01-31 22:01] LABS: Hemoglobin 13.3 g/dL (14.0-18.0); Mean Corpuscular HGB CONC 33.9 g/dL (32.0-36.0); Mean Corpuscular Volume 94.4 fl (78.0-98.0); Mean Platelet Volume 7.6 fL (7.4-10.4); Platelet Count 252 10x3/uL (130-400); RBC Distribution Width 14.8 % (11.5-14.5); Red Blood Cell (RBC) Count 4.15 mill/uL (4.70-6.10); White Blood Cell (WBC) Count 27.4 10x3/uL (4.8-10.8)
[2022-01-31 22:17] LABS: Band 12 % (5-11); Hypochromia SLIGHT = 6-15 cells (100X) (0-5/hpf); Lymphocytes 2 % (21-51); MDiff Complete? YES; Monocytes 18 % (0-10); Neutrophil 67 % (42-75); Platelet Morphology Comment Appears Adequate; Reactive Lymphocytes 1 % (0-10)
[2022-01-31 22:20] LABS: ALT (SGPT) 46 U/L (8-55); AST (SGOT) 315 U/L (5-34); Albumin 3.8 g/dL (3.4-4.8); Alkaline Phosphatase 107 U/L (40-110); Anion Gap 22 mmol/L (10-20); BUN (Urea Nitrogen) 19 mg/dL (8.4-25.7); Bilirubin, Total 1.8 mg/dL (0.2-1.2); Calc. Creatinine Clearance 0 mL/min (70-130); Calcium 8.4 mg/dL (7.8-10.44); Carbon Dioxide 17 mmol/L (23-31); Chloride 103 mmol/L (98-107); Estimated GFR 35; Globulin 3.2 g/dL (2.4-3.5); Glucose 230 mg/dL (83-110); Potassium 4.5 mmol/L (3.5-5.1); Sodium 137 mmol/L (136-145)
[2022-01-31 22:42] LABS: CKMB 87.9 ng/mL (0-6.6)
[2022-01-31 22:51] LABS: CK (CPK) 28953 U/L (30-200)
[2022-01-31] MEDS ORDERED: Cefepime 2 GM VIAL ONE (23:46)
[2022-02-01] MEDS ORDERED: Vancomycin 1 GM/200 ML (FROZEN) BAG ONE (00:03)
[2022-02-01] MEDS ORDERED: Aspirin 325 MG TAB ONE (00:03)
[2022-02-01 01:37] LABS: SARS-CoV-2 NAA Rapid Test Not Detected (NotDetected)
[2022-02-01 01:55] VITALS: BMI 47.1
[2022-02-01] MEDS ORDERED: Sodium Chloride 0.9% 1,000 ML IV SCH (02:15)
[2022-02-01] MEDS ORDERED: Dextrose 50% Abboject 50 ML SYRINGE SLOW IVP PRN (02:52)
[2022-02-01] MEDS ORDERED: HumaLOG 300 UNITS/3 ML VIAL SC PRN (02:52)
[2022-02-01] MEDS ORDERED: Dextrose 5% in Water 1,000 ML IV PRN (02:52)
[2022-02-01] MEDS ORDERED: Vancomycin 1.5 GRAM/300 ML BAG 1.5 GM in Premix Bag 1 BAG IVPB SCH (03:00)
[2022-02-01 03:07] LABS: Lactic Acid 3.4 mmol/L (0.5-2.2)
[2022-02-01] MEDS ORDERED: traMADol HCl 50 MG TAB PO SCH (03:45)
[2022-02-01] MEDS ORDERED: traMADol HCl 50 MG TAB ONE (03:53)
[2022-02-01 05:02] LABS: Hemoglobin 12.6 g/dL (14.0-18.0); Mean Corpuscular HGB CONC 33.6 g/dL (32.0-36.0); Mean Corpuscular Hemoglobin 31.2 pg (27.0-31.0); Mean Platelet Volume 7.6 fL (7.4-10.4); Platelet Count 222 10x3/uL (130-400); RBC Distribution Width 14.6 % (11.5-14.5); Red Blood Cell (RBC) Count 4.02 mill/uL (4.70-6.10); White Blood Cell (WBC) Count 22.5 10x3/uL (4.8-10.8)
[2022-02-01 05:18] LABS: ALT (SGPT) 108 U/L (8-55); AST (SGOT) 774 U/L (5-34); Albumin 3.3 g/dL (3.4-4.8); Alkaline Phosphatase 89 U/L (40-110); Anion Gap 17 mmol/L (10-20); BUN (Urea Nitrogen) 22 mg/dL (8.4-25.7); Bilirubin, Total 1.6 mg/dL (0.2-1.2); Calc. Creatinine Clearance 78 mL/min (70-130); Calcium 8.2 mg/dL (7.8-10.44); Carbon Dioxide 17 mmol/L (23-31); Chloride 105 mmol/L (98-107); Estimated GFR 42; Globulin 3.5 g/dL (2.4-3.5); Glucose 188 mg/dL (83-110); Potassium 4.2 mmol/L (3.5-5.1); Protein, Total 6.8 g/dL (5.8-8.1); Sodium 135 mmol/L (136-145)
[2022-02-01 05:21] LABS: Lactic Acid 2.8 mmol/L (0.5-2.2)
[2022-02-01 05:26] LABS: Band 13 % (5-11); Hypochromia SLIGHT = 6-15 cells (100X) (0-5/hpf); Lymphocytes 7 % (21-51); MDiff Complete? YES; Monocytes 7 % (0-10); Neutrophil 72 % (42-75); Platelet Morphology Comment Appears Adequate; Reactive Lymphocytes 1 % (0-10)
[2022-02-01] MEDS: Sodium Chloride 0.9% 1,000 ML IV SCH ×2 (05:51→08:38)
[2022-02-01 06:02] LABS: Bacteria/HPF 2+ HPF (None Seen); Bilirubin Negative (Negative); Blood, Urine 3+ (Negative); Clarity Extra Turbid (Clear); Glucose, Urine (Dipstick) 50 mg/dL (Negative); Ketone, Urine 10 mg/dL (Negative); Leukocyte 250 Leu/uL (Negative); Nitrite Negative (Negative); Protein, Urine (Dipstick) 100 mg/dL (Neg-Trace); Specific Gravity, Urine 1.019 (1.002-1.036); Squamous Epithelial 0-3 HPF (0-3); Urobilinogen Normal mg/dL (Less than 2); WBC/HPF Greater than 50 HPF (0-3); pH, Urine 5.5 (5.0-9.0)
[2022-02-01 06:40] LABS: CK (CPK) Greater than 40000 U/L (30-200)
[2022-02-01] MEDS: Apixaban 5 MG TAB PO SCH ×2 (08:31→20:50)
[2022-02-01 08:42] LABS: Bilirubin Negative (Negative); Blood, Urine 3+ (Negative); CAUTI Indications for Culture Dysuria,urgency,freq; Clarity Turbid (Clear); Glucose, Urine (Dipstick) 30 mg/dL (Negative); Ketone, Urine Trace mg/dL (Negative); Leukocyte 75 Leu/uL (Negative); Nitrite Negative (Negative); Protein, Urine (Dipstick) 100 mg/dL (Neg-Trace); Specific Gravity, Urine 1.017 (1.002-1.036); Squamous Epithelial 0-3 HPF (0-3); Urobilinogen Normal mg/dL (Less than 2); WBC/HPF Greater than 50 HPF (0-3); pH, Urine 5.5 (5.0-9.0)
[2022-02-01 08:43] LABS: Bacteria/HPF 1+ HPF (None Seen); Urine Culture Reflex Yes Yes
[2022-02-01] MEDS ORDERED: Sodium Chloride 0.45% 1,000 ML IV SCH (09:30)
[2022-02-01] MEDS: Sodium Bicarbonate 150 MEQ in Sterile Water Injection 850 ML IV SCH ×2 (10:46→18:29)
[2022-02-01] MEDS ORDERED: Cefepime 1 GM VIAL ONE (10:48)
[2022-02-01] MEDS ORDERED: HumaLOG 300 UNITS/3 ML VIAL ONE (12:08)
[2022-02-01] MEDS: HumaLOG 300 UNITS/3 ML VIAL SC PRN (12:14)
[2022-02-01] MEDS: Cefepime 1 GM in Sodium Chloride 0.9% 100 ML IVPB SCH (12:15)
[2022-02-01 16:19] LABS: Troponin I 0.074 ng/mL (< 0.028)
[2022-02-01 19:50] LABS: Troponin I 0.074 ng/mL (< 0.028)
[2022-02-01] MEDS ORDERED: VANCOMYCIN 2 GRAM/500 ML BAG 2 GM in Premix Bag 1 BAG IVPB SCH (23:59)
[2022-02-02] MEDS: Cefepime 1 GM in Sodium Chloride 0.9% 100 ML IVPB SCH (00:38)
[2022-02-02] MEDS: Sodium Bicarbonate 150 MEQ in Sterile Water Injection 850 ML IV SCH ×3 (00:38→15:50)
[2022-02-02 05:41] LABS: Phosphorus 2.7 mg/dL (2.3-4.7)
[2022-02-02 05:46] LABS: #Eosinphils 0.1 thou/uL (0.0-0.7); #Lymphocytes 1.3 thou/uL (1.20-3.40); #Monocytes 0.9 thou/uL (0.11-0.59); #Neutrophils 11.2 thou/uL (1.40-6.50); %Basophils 0.1 % (0.0-1.0); %Eosinophils 0.4 % (0.0-10.0); %Lymphocytes 9.7 % (21.0-51.0); %Monocytes 6.9 % (0.0-10.0); %Neutrophils 82.8 % (42.0-75.0); Hemoglobin 11.1 g/dL (14.0-18.0); Mean Corpuscular HGB CONC 33.4 g/dL (32.0-36.0); Mean Corpuscular Hemoglobin 31.5 pg (27.0-31.0); Mean Corpuscular Volume 94.2 fl (78.0-98.0); Platelet Count 197 10x3/uL (130-400); RBC Distribution Width 14.6 % (11.5-14.5); Red Blood Cell (RBC) Count 3.54 mill/uL (4.70-6.10); White Blood Cell (WBC) Count 13.6 10x3/uL (4.8-10.8)
[2022-02-02 05:49] LABS: ALT (SGPT) 150 U/L (8-55); AST (SGOT) 712 U/L (5-34); Albumin 2.9 g/dL (3.4-4.8); Alkaline Phosphatase 90 U/L (40-110); Anion Gap 14 mmol/L (10-20); BUN (Urea Nitrogen) 33 mg/dL (8.4-25.7); Bilirubin, Total 1.2 mg/dL (0.2-1.2); Calc. Creatinine Clearance 55 mL/min (70-130); Calcium 7.7 mg/dL (7.8-10.44); Carbon Dioxide 22 mmol/L (23-31); Chloride 100 mmol/L (98-107); Estimated GFR 28; Globulin 3.2 g/dL (2.4-3.5); Glucose 157 mg/dL (83-110); Magnesium 2.3 mg/dL (1.6-2.6); Potassium 3.7 mmol/L (3.5-5.1); Protein, Total 6.1 g/dL (5.8-8.1); Sodium 132 mmol/L (136-145)
[2022-02-02 07:07] LABS: CK (CPK) Greater than 40000 U/L (30-200)
[2022-02-02] MEDS: Apixaban 5 MG TAB PO SCH ×2 (09:44→20:23)
[2022-02-02] MEDS: traMADol HCl 50 MG TAB PO PRN ×2 (11:42→20:24)
[2022-02-02] MEDS: CEFEPIME HCL IN DEXTROSE 5 % 1 GM in Premix Bag 1 BAG IVPB SCH ×2 (11:43→23:55)
[2022-02-02] MEDS: Sodium Chloride 0.9% 1,000 ML IV SCH (17:01)
[2022-02-02] MEDS ORDERED: Acetaminophen 325 MG TAB PO SCH (20:15)
[2022-02-02 23:22] LABS: Vancomycin, Trough 16.3 ug/mL
[2022-02-02] MEDS: Vancomycin 1.5 GRAM/300 ML BAG 1.5 GM in Premix Bag 1 BAG IVPB SCH (23:55)
[2022-02-03 05:48] LABS: #Basophils 0.1 thou/uL (0.0-0.2); #Eosinphils 0.3 thou/uL (0.0-0.7); #Lymphocytes 1.1 thou/uL (1.20-3.40); #Monocytes 0.8 thou/uL (0.11-0.59); %Basophils 0.7 % (0.0-1.0); %Eosinophils 2.9 % (0.0-10.0); %Lymphocytes 11.8 % (21.0-51.0); %Monocytes 8.2 % (0.0-10.0); %Neutrophils 76.4 % (42.0-75.0); Hemoglobin 10.2 g/dL (14.0-18.0); Mean Corpuscular HGB CONC 33.3 g/dL (32.0-36.0); Mean Corpuscular Hemoglobin 31.3 pg (27.0-31.0); Mean Corpuscular Volume 94.1 fl (78.0-98.0); Mean Platelet Volume 7.7 fL (7.4-10.4); Platelet Count 196 10x3/uL (130-400); RBC Distribution Width 14.4 % (11.5-14.5); Red Blood Cell (RBC) Count 3.24 mill/uL (4.70-6.10); White Blood Cell (WBC) Count 9.2 10x3/uL (4.8-10.8)
[2022-02-03 06:29] LABS: ALT (SGPT) 130 U/L (8-55); AST (SGOT) 470 U/L (5-34); Albumin 2.8 g/dL (3.4-4.8); Alkaline Phosphatase 84 U/L (40-110); Anion Gap 14 mmol/L (10-20); BUN (Urea Nitrogen) 35 mg/dL (8.4-25.7); Calc. Creatinine Clearance 54 mL/min (70-130); Calcium 7.7 mg/dL (7.8-10.44); Carbon Dioxide 25 mmol/L (23-31); Chloride 99 mmol/L (98-107); Estimated GFR 27; Globulin 3.3 g/dL (2.4-3.5); Glucose 124 mg/dL (83-110); Potassium 3.5 mmol/L (3.5-5.1); Protein, Total 6.1 g/dL (5.8-8.1); Sodium 134 mmol/L (136-145)
[2022-02-03 06:55] LABS: CK (CPK) 28772 U/L (30-200)
[2022-02-03] MEDS: Apixaban 5 MG TAB PO SCH ×2 (09:34→19:57)
[2022-02-03] MEDS: Digoxin 0.125 MG TAB PO SCH (09:34)
[2022-02-03] MEDS: glipiZIDE 5 MG TAB PO SCH (09:34)
[2022-02-03] MEDS: traMADol HCl 50 MG TAB PO PRN ×2 (09:42→19:57)
[2022-02-03] MEDS: Sodium Chloride 0.9% 1,000 ML IV SCH ×2 (10:06→21:07)
[2022-02-03] MEDS: CEFEPIME HCL IN DEXTROSE 5 % 1 GM in Premix Bag 1 BAG IVPB SCH (11:32)
[2022-02-03] MEDS: HumaLOG 300 UNITS/3 ML VIAL SC PRN (11:33)
[2022-02-04] MEDS: CEFEPIME HCL IN DEXTROSE 5 % 1 GM in Premix Bag 1 BAG IVPB SCH ×3 (00:07→23:41)
[2022-02-04] MEDS: Vancomycin 1.5 GRAM/300 ML BAG 1.5 GM in Premix Bag 1 BAG IVPB SCH (01:17)
[2022-02-04 05:25] LABS: #Eosinphils 0.6 thou/uL (0.0-0.7); #Lymphocytes 1.4 thou/uL (1.20-3.40); #Monocytes 0.6 thou/uL (0.11-0.59); #Neutrophils 5.3 thou/uL (1.40-6.50); %Basophils 0.1 % (0.0-1.0); %Eosinophils 7.4 % (0.0-10.0); %Lymphocytes 17.2 % (21.0-51.0); %Monocytes 8.1 % (0.0-10.0); %Neutrophils 67.2 % (42.0-75.0); Hemoglobin 9.5 g/dL (14.0-18.0); Mean Corpuscular HGB CONC 34.1 g/dL (32.0-36.0); Mean Corpuscular Hemoglobin 32.1 pg (27.0-31.0); Mean Corpuscular Volume 94.4 fl (78.0-98.0); Mean Platelet Volume 7.4 fL (7.4-10.4); Platelet Count 190 10x3/uL (130-400); RBC Distribution Width 14.4 % (11.5-14.5); Red Blood Cell (RBC) Count 2.96 mill/uL (4.70-6.10); White Blood Cell (WBC) Count 7.8 10x3/uL (4.8-10.8)
[2022-02-04 05:35] LABS: ALT (SGPT) 116 U/L (8-55); AST (SGOT) 365 U/L (5-34); Albumin 2.5 g/dL (3.4-4.8); Alkaline Phosphatase 81 U/L (40-110); Anion Gap 11 mmol/L (10-20); BUN (Urea Nitrogen) 41 mg/dL (8.4-25.7); Bilirubin, Total 0.7 mg/dL (0.2-1.2); Calc. Creatinine Clearance 53 mL/min (70-130); Calcium 7.8 mg/dL (7.8-10.44); Carbon Dioxide 25 mmol/L (23-31); Chloride 102 mmol/L (98-107); Estimated GFR 26; Globulin 3.1 g/dL (2.4-3.5); Glucose 170 mg/dL (83-110); Potassium 3.4 mmol/L (3.5-5.1); Protein, Total 5.6 g/dL (5.8-8.1); Sodium 135 mmol/L (136-145)
[2022-02-04] MEDS: HumaLOG 300 UNITS/3 ML VIAL SC PRN ×2 (05:40→12:43)
[2022-02-04] MEDS: traMADol HCl 50 MG TAB PO PRN ×2 (08:08→19:14)
[2022-02-04] MEDS: Apixaban 5 MG TAB PO SCH ×2 (08:10→21:08)
[2022-02-04] MEDS: Digoxin 0.125 MG TAB PO SCH (08:10)
[2022-02-04] MEDS: glipiZIDE 5 MG TAB PO SCH (08:10)
[2022-02-04] MEDS ORDERED: Potassium Chloride 20 MEQ TAB PO SCH (11:00)
[2022-02-04] MEDS: Albumin 25% 25 GM/100 ML BOT IVPB SCH ×2 (12:42→18:13)
[2022-02-04] MEDS: Sodium Chloride 0.9% 1,000 ML IV SCH ×2 (17:29→19:15)
[2022-02-04] MEDS ORDERED: Morphine 4 MG/ML VIAL SLOW IVP SCH (22:00)
[2022-02-05] MEDS: Albumin 25% 25 GM/100 ML BOT IVPB SCH ×2 (00:16→05:04)
[2022-02-05] MEDS: traMADol HCl 50 MG TAB PO PRN ×3 (01:18→16:35)
[2022-02-05] MEDS: Sodium Chloride 0.9% 1,000 ML IV SCH ×2 (05:04→17:55)
[2022-02-05 06:03] LABS: #Eosinphils 0.8 thou/uL (0.0-0.7); #Lymphocytes 1.5 thou/uL (1.20-3.40); #Monocytes 0.6 thou/uL (0.11-0.59); #Neutrophils 5.5 thou/uL (1.40-6.50); %Basophils 0.2 % (0.0-1.0); %Eosinophils 9.6 % (0.0-10.0); %Lymphocytes 17.9 % (21.0-51.0); %Neutrophils 65.3 % (42.0-75.0); Mean Corpuscular HGB CONC 33.8 g/dL (32.0-36.0); Mean Corpuscular Hemoglobin 31.9 pg (27.0-31.0); Mean Corpuscular Volume 94.3 fl (78.0-98.0); Mean Platelet Volume 7.5 fL (7.4-10.4); Platelet Count 196 10x3/uL (130-400); RBC Distribution Width 14.4 % (11.5-14.5); Red Blood Cell (RBC) Count 2.84 mill/uL (4.70-6.10); White Blood Cell (WBC) Count 8.4 10x3/uL (4.8-10.8)
[2022-02-05 06:20] LABS: ALT (SGPT) 92 U/L (8-55); AST (SGOT) 213 U/L (5-34); Alkaline Phosphatase 72 U/L (40-110); Anion Gap 13 mmol/L (10-20); BUN (Urea Nitrogen) 41 mg/dL (8.4-25.7); Bilirubin, Total 0.9 mg/dL (0.2-1.2); Calc. Creatinine Clearance 58 mL/min (70-130); Calcium 8.1 mg/dL (7.8-10.44); Carbon Dioxide 22 mmol/L (23-31); Chloride 106 mmol/L (98-107); Estimated GFR 30; Globulin 2.7 g/dL (2.4-3.5); Glucose 116 mg/dL (83-110); Magnesium 2.5 mg/dL (1.6-2.6); Potassium 3.9 mmol/L (3.5-5.1); Protein, Total 5.7 g/dL (5.8-8.1); Sodium 137 mmol/L (136-145)
[2022-02-05 06:47] LABS: CK (CPK) 8039 U/L (30-200)
[2022-02-05] MEDS: glipiZIDE 5 MG TAB PO SCH (09:36)
[2022-02-05] MEDS: Digoxin 0.125 MG TAB PO SCH (09:38)
[2022-02-05] MEDS: Apixaban 5 MG TAB PO SCH ×2 (09:38→21:21)
[2022-02-05] MEDS: CEFEPIME HCL IN DEXTROSE 5 % 1 GM in Premix Bag 1 BAG IVPB SCH ×2 (12:00→23:49)
[2022-02-06 06:21] LABS: Iron 38 ug/dL (65-175); Iron Binding Capacity, Total 195 mcg/dL (261-462)
[2022-02-06 06:25] LABS: ALT (SGPT) 78 U/L (8-55); AST (SGOT) 105 U/L (5-34); Albumin 2.9 g/dL (3.4-4.8); Alkaline Phosphatase 68 U/L (40-110); Anion Gap 12 mmol/L (10-20); BUN (Urea Nitrogen) 43 mg/dL (8.4-25.7); Bilirubin, Total 0.9 mg/dL (0.2-1.2); CK (CPK) 2757 U/L (30-200); Calc. Creatinine Clearance 60 mL/min (70-130); Calcium 8.4 mg/dL (7.8-10.44); Carbon Dioxide 21 mmol/L (23-31); Chloride 109 mmol/L (98-107); Estimated GFR 30; Globulin 2.8 g/dL (2.4-3.5); Glucose 134 mg/dL (83-110); Potassium 4.4 mmol/L (3.5-5.1); Protein, Total 5.7 g/dL (5.8-8.1); Sodium 138 mmol/L (136-145)
[2022-02-06] MEDS: Sodium Chloride 0.9% 1,000 ML IV SCH ×2 (06:30→15:39)
[2022-02-06 07:28] LABS: Band 11 % (5-11); Eosinophils 8 % (0-10); Hemoglobin 9.3 g/dL (14.0-18.0); Lymphocytes 18 % (21-51); MDiff Complete? YES; Mean Corpuscular HGB CONC 33.3 g/dL (32.0-36.0); Mean Corpuscular Hemoglobin 31.5 pg (27.0-31.0); Mean Corpuscular Volume 94.6 fl (78.0-98.0); Mean Platelet Volume 7.8 fL (7.4-10.4); Monocytes 6 % (0-10); Neutrophil 57 % (42-75); Platelet Count 219 10x3/uL (130-400); RBC Distribution Width 14.6 % (11.5-14.5); Red Blood Cell (RBC) Count 2.96 mill/uL (4.70-6.10); White Blood Cell (WBC) Count 9.9 10x3/uL (4.8-10.8)
[2022-02-06] MEDS: Digoxin 0.125 MG TAB PO SCH (09:39)
[2022-02-06] MEDS: Apixaban 5 MG TAB PO SCH ×2 (09:39→20:54)
[2022-02-06] MEDS: glipiZIDE 5 MG TAB PO SCH (09:40)
[2022-02-06] MEDS: CEFEPIME HCL IN DEXTROSE 5 % 1 GM in Premix Bag 1 BAG IVPB SCH (11:26)
[2022-02-06] MEDS: HumaLOG 300 UNITS/3 ML VIAL SC PRN (11:27)
[2022-02-06] MEDS: Ondansetron PF 4 MG/2 ML Vial IVP PRN (12:21)
[2022-02-06] MEDS: Cefepime 1 GM in Sodium Chloride 0.9% 100 ML IVPB SCH (23:52)
[2022-02-07] MEDS: Sodium Chloride 0.9% 1,000 ML IV SCH ×2 (04:55→15:38)
[2022-02-07] MEDS ORDERED: hydrALAZINE 10 MG TAB PO SCH (05:00)
[2022-02-07 05:58] LABS: Hemoglobin 9.4 g/dL (14.0-18.0); Mean Corpuscular HGB CONC 33.4 g/dL (32.0-36.0); Mean Corpuscular Hemoglobin 31.4 pg (27.0-31.0); Mean Corpuscular Volume 93.8 fl (78.0-98.0); Mean Platelet Volume 7.6 fL (7.4-10.4); Platelet Count 248 10x3/uL (130-400); RBC Distribution Width 14.5 % (11.5-14.5); Red Blood Cell (RBC) Count 2.99 mill/uL (4.70-6.10); White Blood Cell (WBC) Count 10.8 10x3/uL (4.8-10.8)
[2022-02-07 06:24] LABS: ALT (SGPT) 60 U/L (8-55); AST (SGOT) 53 U/L (5-34); Albumin 2.8 g/dL (3.4-4.8); Alkaline Phosphatase 67 U/L (40-110); Anion Gap 13 mmol/L (10-20); BUN (Urea Nitrogen) 41 mg/dL (8.4-25.7); Bilirubin, Total 0.8 mg/dL (0.2-1.2); CK (CPK) 1018 U/L (30-200); Calc. Creatinine Clearance 69 mL/min (70-130); Calcium 8.7 mg/dL (7.8-10.44); Carbon Dioxide 21 mmol/L (23-31); Chloride 110 mmol/L (98-107); Estimated GFR 36; Globulin 2.7 g/dL (2.4-3.5); Glucose 140 mg/dL (83-110); Potassium 4.6 mmol/L (3.5-5.1); Protein, Total 5.5 g/dL (5.8-8.1); Sodium 139 mmol/L (136-145)
[2022-02-07] MEDS: HYDROcodone/Acetaminophen 10/325 mg Tablet PO PRN (08:09)
[2022-02-07] MEDS: Digoxin 0.125 MG TAB PO SCH (08:09)
[2022-02-07] MEDS: glipiZIDE 5 MG TAB PO SCH (08:10)
[2022-02-07] MEDS: Apixaban 5 MG TAB PO SCH ×2 (08:10→21:06)
[2022-02-07 09:17] LABS: Band 3 % (5-11); Eosinophils 7 % (0-10); Lymphocytes 10 % (21-51); MDiff Complete? YES; Monocytes 10 % (0-10); Neutrophil 70 % (42-75); RBC Morphology Normal
[2022-02-07] MEDS: Cefepime 1 GM in Sodium Chloride 0.9% 100 ML IVPB SCH (11:14)
[2022-02-07] MEDS ORDERED: Polyethylene Glycol 3350 17 GM Packet PO PRN (11:21)
[2022-02-07 18:37] LABS: CK1-BB 0 % (0); CK2-MB 0 % (0-3); CK3-MM 100 % (97-100); Creatine Kinase Total 18291 U/L (41-331); Macro I 0 % (Not Observed); Macro II 0 % (Not Observed)
[2022-02-08] MEDS: Cefepime 1 GM in Sodium Chloride 0.9% 100 ML IVPB SCH (00:56)
[2022-02-08] MEDS: Sodium Chloride 0.9% 1,000 ML IV SCH ×2 (00:59→06:19)
[2022-02-08 06:16] LABS: Anion Gap 12 mmol/L (10-20); BUN (Urea Nitrogen) 41 mg/dL (8.4-25.7); CK (CPK) 607 U/L (30-200); Calc. Creatinine Clearance 72 mL/min (70-130); Calcium 8.5 mg/dL (7.8-10.44); Carbon Dioxide 19 mmol/L (23-31); Chloride 111 mmol/L (98-107); Estimated GFR 38; Glucose 139 mg/dL (83-110); Potassium 4.7 mmol/L (3.5-5.1)
[2022-02-08 06:26] LABS: Sodium 137 mmol/L (136-145)
[2022-02-08] MEDS: Digoxin 0.125 MG TAB PO SCH (08:04)
[2022-02-08] MEDS: Apixaban 5 MG TAB PO SCH ×2 (08:05→20:47)
[2022-02-08] MEDS: glipiZIDE 5 MG TAB PO SCH (08:05)
[2022-02-08] MEDS: HYDROcodone/Acetaminophen 10/325 mg Tablet PO PRN (13:29)
[2022-02-08] MEDS: Sodium Bicarbonate Tab 325 MG TAB PO SCH (20:47)
[2022-02-08] MEDS: traMADol HCl 50 MG TAB PO PRN (21:52)
[2022-02-09 06:07] LABS: ALT (SGPT) 41 U/L (8-55); AST (SGOT) 33 U/L (5-34); Albumin 2.7 g/dL (3.4-4.8); Alkaline Phosphatase 66 U/L (40-110); Anion Gap 12 mmol/L (10-20); BUN (Urea Nitrogen) 43 mg/dL (8.4-25.7); Bilirubin, Total 0.6 mg/dL (0.2-1.2); CK (CPK) 422 U/L (30-200); Calc. Creatinine Clearance 69 mL/min (70-130); Calcium 8.4 mg/dL (7.8-10.44); Carbon Dioxide 19 mmol/L (23-31); Chloride 110 mmol/L (98-107); Estimated GFR 36; Globulin 2.6 g/dL (2.4-3.5); Glucose 129 mg/dL (83-110); Potassium 4.4 mmol/L (3.5-5.1); Protein, Total 5.3 g/dL (5.8-8.1); Sodium 137 mmol/L (136-145)
[2022-02-09] MEDS: Sodium Bicarbonate Tab 325 MG TAB PO SCH ×3 (08:36→21:01)
[2022-02-09] MEDS: Apixaban 5 MG TAB PO SCH ×2 (08:36→21:01)
[2022-02-09] MEDS: HYDROcodone/Acetaminophen 10/325 mg Tablet PO PRN ×3 (08:37→21:01)
[2022-02-09] MEDS: glipiZIDE 5 MG TAB PO SCH (08:37)
[2022-02-09] MEDS: traMADol HCl 50 MG TAB PO PRN ×2 (09:52→16:11)
[2022-02-09] MEDS: Ondansetron PF 4 MG/2 ML Vial IVP PRN (13:01)
[2022-02-10 05:11] LABS: #Eosinphils 0.6 thou/uL (0.0-0.7); #Lymphocytes 2.3 thou/uL (1.20-3.40); #Monocytes 0.7 thou/uL (0.11-0.59); %Basophils 0.3 % (0.0-1.0); %Lymphocytes 21.4 % (21.0-51.0); %Monocytes 6.4 % (0.0-10.0); %Neutrophils 65.9 % (42.0-75.0); Hemoglobin 9.2 g/dL (14.0-18.0); Mean Corpuscular HGB CONC 33.5 g/dL (32.0-36.0); Mean Corpuscular Hemoglobin 31.7 pg (27.0-31.0); Mean Corpuscular Volume 94.6 fl (78.0-98.0); Mean Platelet Volume 7.3 fL (7.4-10.4); Platelet Count 312 10x3/uL (130-400); RBC Distribution Width 14.8 % (11.5-14.5); Red Blood Cell (RBC) Count 2.89 mill/uL (4.70-6.10); White Blood Cell (WBC) Count 10.6 10x3/uL (4.8-10.8)
[2022-02-10 05:36] LABS: Anion Gap 12 mmol/L (10-20); BUN (Urea Nitrogen) 44 mg/dL (8.4-25.7); CRP (Inflammatory) 1.77 mg/dL (= or < 0.5); Calc. Creatinine Clearance 62 mL/min (70-130); Calcium 8.8 mg/dL (7.8-10.44); Carbon Dioxide 21 mmol/L (23-31); Chloride 110 mmol/L (98-107); Estimated GFR 32; Glucose 133 mg/dL (83-110); Potassium 4.7 mmol/L (3.5-5.1); Sodium 138 mmol/L (136-145)
[2022-02-10] MEDS: Sodium Bicarbonate Tab 325 MG TAB PO SCH ×3 (10:05→20:41)
[2022-02-10] MEDS: glipiZIDE 5 MG TAB PO SCH (10:05)
[2022-02-10] MEDS: traMADol HCl 50 MG TAB PO PRN ×2 (10:05→20:41)
[2022-02-10] MEDS: Apixaban 5 MG TAB PO SCH ×2 (10:05→20:41)
[2022-02-10] MEDS ORDERED: Furosemide 40 MG/4 ML VIAL SLOW IVP SCH (11:00)
[2022-02-10] MEDS: Albumin 25% 25 GM/100 ML BOT IVPB SCH ×3 (12:24→23:48)
[2022-02-10] MEDS: HumaLOG 300 UNITS/3 ML VIAL SC PRN (12:35)
[2022-02-10] MEDS: HYDROcodone/Acetaminophen 10/325 mg Tablet PO PRN ×2 (13:35→23:48)
[2022-02-10] MEDS: Bacitracin 1 PK TOP SCH (20:42)
[2022-02-11 05:47] LABS: #Eosinphils 0.6 thou/uL (0.0-0.7); #Lymphocytes 1.8 thou/uL (1.20-3.40); #Monocytes 0.6 thou/uL (0.11-0.59); #Neutrophils 6.1 thou/uL (1.40-6.50); %Basophils 0.4 % (0.0-1.0); %Eosinophils 6.7 % (0.0-10.0); %Lymphocytes 19.8 % (21.0-51.0); %Monocytes 6.3 % (0.0-10.0); %Neutrophils 66.9 % (42.0-75.0); Hemoglobin 8.8 g/dL (14.0-18.0); Mean Corpuscular HGB CONC 33.5 g/dL (32.0-36.0); Mean Corpuscular Hemoglobin 31.8 pg (27.0-31.0); Mean Corpuscular Volume 94.9 fl (78.0-98.0); Platelet Count 327 10x3/uL (130-400); RBC Distribution Width 14.7 % (11.5-14.5); Red Blood Cell (RBC) Count 2.76 mill/uL (4.70-6.10); White Blood Cell (WBC) Count 9.2 10x3/uL (4.8-10.8)
[2022-02-11] MEDS: Albumin 25% 25 GM/100 ML BOT IVPB SCH (05:53)
[2022-02-11] MEDS: traMADol HCl 50 MG TAB PO PRN (05:55)
[2022-02-11 06:06] LABS: Anion Gap 12 mmol/L (10-20); BUN (Urea Nitrogen) 42 mg/dL (8.4-25.7); Calc. Creatinine Clearance 67 mL/min (70-130); Carbon Dioxide 22 mmol/L (23-31); Chloride 108 mmol/L (98-107); Estimated GFR 35; Glucose 124 mg/dL (83-110); Potassium 4.3 mmol/L (3.5-5.1); Sodium 138 mmol/L (136-145)
[2022-02-11] MEDS: Sodium Bicarbonate Tab 325 MG TAB PO SCH ×3 (09:09→21:55)
[2022-02-11] MEDS: Apixaban 5 MG TAB PO SCH ×2 (09:09→21:54)
[2022-02-11] MEDS: Bacitracin 1 PK TOP SCH ×3 (09:09→22:24)
[2022-02-11] MEDS: glipiZIDE 5 MG TAB PO SCH (09:09)
[2022-02-11] MEDS: HYDROcodone/Acetaminophen 10/325 mg Tablet PO PRN ×2 (09:37→22:26)
[2022-02-11] MEDS ORDERED: Nitroglycerin 0.4 MG TAB (25 Tab Bottle) SL PRN (19:17)
[2022-02-12 06:07] LABS: #Eosinphils 0.5 thou/uL (0.0-0.7); #Lymphocytes 1.9 thou/uL (1.20-3.40); #Monocytes 0.5 thou/uL (0.11-0.59); #Neutrophils 5.7 thou/uL (1.40-6.50); %Basophils 0.3 % (0.0-1.0); %Eosinophils 5.8 % (0.0-10.0); %Lymphocytes 22.5 % (21.0-51.0); %Monocytes 5.7 % (0.0-10.0); %Neutrophils 65.8 % (42.0-75.0); Hemoglobin 9.3 g/dL (14.0-18.0); Mean Corpuscular HGB CONC 33.2 g/dL (32.0-36.0); Mean Corpuscular Hemoglobin 31.6 pg (27.0-31.0); Mean Corpuscular Volume 94.9 fl (78.0-98.0); Mean Platelet Volume 7.2 fL (7.4-10.4); Platelet Count 354 10x3/uL (130-400); RBC Distribution Width 14.7 % (11.5-14.5); Red Blood Cell (RBC) Count 2.94 mill/uL (4.70-6.10); White Blood Cell (WBC) Count 8.6 10x3/uL (4.8-10.8)
[2022-02-12 06:23] LABS: Anion Gap 12 mmol/L (10-20); BUN (Urea Nitrogen) 40 mg/dL (8.4-25.7); Calc. Creatinine Clearance 70 mL/min (70-130); Calcium 9.1 mg/dL (7.8-10.44); Carbon Dioxide 24 mmol/L (23-31); Chloride 109 mmol/L (98-107); Estimated GFR 37; Glucose 120 mg/dL (83-110); Potassium 4.5 mmol/L (3.5-5.1); Sodium 140 mmol/L (136-145)
[2022-02-12] MEDS: HYDROcodone/Acetaminophen 10/325 mg Tablet PO PRN ×3 (08:37→20:31)
[2022-02-12] MEDS: glipiZIDE 5 MG TAB PO SCH (08:37)
[2022-02-12] MEDS: Sodium Bicarbonate Tab 325 MG TAB PO SCH ×3 (08:37→20:34)
[2022-02-12] MEDS: Apixaban 5 MG TAB PO SCH ×2 (08:38→20:31)
[2022-02-12] MEDS: Bacitracin 1 PK TOP SCH ×3 (08:45→20:31)
[2022-02-12] MEDS ORDERED: Mag-Al 1200 mg/1200 mg/30 ML UDCUP PO PRN (16:06)
[2022-02-12] MEDS ORDERED: Amlodipine 5 MG TAB PO SCH (16:15)
[2022-02-13 06:39] LABS: Anion Gap 13 mmol/L (10-20); BUN (Urea Nitrogen) 39 mg/dL (8.4-25.7); Calc. Creatinine Clearance 72 mL/min (70-130); Calcium 9.1 mg/dL (7.8-10.44); Carbon Dioxide 23 mmol/L (23-31); Chloride 107 mmol/L (98-107); Estimated GFR 38; Glucose 121 mg/dL (83-110); Potassium 4.5 mmol/L (3.5-5.1); Sodium 138 mmol/L (136-145)
[2022-02-13] MEDS: Apixaban 5 MG TAB PO SCH ×2 (08:36→20:30)
[2022-02-13] MEDS: glipiZIDE 5 MG TAB PO SCH (08:36)
[2022-02-13] MEDS: Sodium Bicarbonate Tab 325 MG TAB PO SCH ×3 (08:36→20:30)
[2022-02-13] MEDS: Amlodipine 5 MG TAB PO SCH (08:36)
[2022-02-13] MEDS: Bacitracin 1 PK TOP SCH ×3 (09:00→20:34)
[2022-02-13] MEDS: HYDROcodone/Acetaminophen 10/325 mg Tablet PO PRN ×2 (13:03→20:33)
[2022-02-14] MEDS: HYDROcodone/Acetaminophen 10/325 mg Tablet PO PRN ×2 (00:32→17:05)
[2022-02-14] MEDS ORDERED: glipiZIDE 5 MG TAB PO SCH (07:30)
[2022-02-14] MEDS: Amlodipine 5 MG TAB PO SCH (09:28)
[2022-02-14] MEDS: Sodium Bicarbonate Tab 325 MG TAB PO SCH ×3 (09:29→19:40)
[2022-02-14] MEDS: Bacitracin 1 PK TOP SCH ×3 (09:29→19:43)
[2022-02-14] MEDS: Apixaban 5 MG TAB PO SCH ×2 (09:29→19:41)
[2022-02-14 19:39] VITALS: BP 166/74; TEMP 98.3
[2022-02-14] MEDS: traMADol HCl 50 MG TAB PO PRN (19:41)
== END 2022-02-14 22:40 | DRG 564 ==
LOC: ERS 21:22 → ERHOLD 02-01 01:26 → NEURO 02-01 16:01 → MSONC 02-11 18:37
PROVIDERS: ADMIT Hospitalist; ATTEND Hospitalist
PROC: 5A09357 Assistance with Respiratory Ventilation, Less than 24 Consecutive Hours, Continuous Positive Airway Pressure (ICD-10-PCS; principal; 2022-02-01)
DX: T79.6XXA Traumatic ischemia of muscle, initial encounter (principal); N17.0 Acute kidney failure with tubular necrosis; E87.20 Acidosis, unspecified; Z68.42 Body mass index [BMI] 45.0-49.9, adult; I48.20 Chronic atrial fibrillation, unspecified; N39.0 Urinary tract infection, site not specified; Z20.822 Contact with and (suspected) exposure to COVID-19; R74.01 Elevation of levels of liver transaminase levels; E78.5 Hyperlipidemia, unspecified; G47.33 Obstructive sleep apnea (adult) (pediatric); E66.01 Morbid (severe) obesity due to excess calories; E03.9 Hypothyroidism, unspecified; I87.2 Venous insufficiency (chronic) (peripheral); E87.6 Hypokalemia; N18.30 Chronic kidney disease, stage 3 unspecified; D63.1 Anemia in chronic kidney disease; I12.9 Hypertensive chronic kidney disease with stage 1 through stage 4 chronic kidney disease, or unspecified chronic kidney disease; S80.02XA Contusion of left knee, initial encounter; R10.9 Unspecified abdominal pain; W18.30XA Fall on same level, unspecified, initial encounter; Z88.5 Allergy status to narcotic agent; Z88.8 Allergy status to other drugs, medicaments and biological substances; Z91.040 Latex allergy status; Z99.89 Dependence on other enabling machines and devices; Z79.899 Other long term (current) drug therapy; Z79.890 Hormone replacement therapy; Z79.84 Long term (current) use of oral hypoglycemic drugs; Z82.49 Family history of ischemic heart disease and other diseases of the circulatory system; Z87.891 Personal history of nicotine dependence; Y92.009 Unspecified place in unspecified non-institutional (private) residence as the place of occurrence of the external cause
CPT/HCPCS: 36415; 36416; 70450; 71045; 72192; 74018; 74176; 80048; 80053; 80202; 81003; 81015; 82550; 82552; 82553; 82728; 83540; 83550; 83605; 83735; 84100; 84145; 84484; 85025; 86140; 87040; 87086; 87811; 93005; 96374; 97139; A4217; J0692; J1815; J1940; J2270; J2405; J3370; J3370-JW; J3490; J7050; P9047; U0002

== ENCOUNTER 2022-08-09 04:41 | Inpatient (IN) | payer MEDICARE ==
[2022-08-09 06:07] LABS: #Eosinphils 0.1 thou/uL (0.0-0.7); #Monocytes 1.1 thou/uL (0.11-0.59); #Neutrophils 8.7 thou/uL (1.40-6.50); %Basophils 0.3 % (0.0-1.0); %Eosinophils 1.1 % (0.0-10.0); %Lymphocytes 12.8 % (21.0-51.0); %Monocytes 9.5 % (0.0-10.0); %Neutrophils 75.3 % (42.0-75.0); Hemoglobin 9.5 g/dL (14.0-18.0); Mean Corpuscular HGB CONC 31.5 g/dL (32.0-36.0); Mean Corpuscular Hemoglobin 28.9 pg (27.0-31.0); Mean Corpuscular Volume 91.8 fl (78.0-98.0); Mean Platelet Volume 10.2 fL (7.4-10.4); Platelet Count 188 10x3/uL (130-400); RBC Distribution Width 16.3 % (11.5-14.5); Red Blood Cell (RBC) Count 3.29 mill/uL (4.70-6.10); White Blood Cell (WBC) Count 11.5 10x3/uL (4.8-10.8)
[2022-08-09 06:27] LABS: ALT (SGPT) 7 U/L (8-55); AST (SGOT) 10 U/L (5-34); Albumin 3.3 g/dL (3.4-4.8); Alkaline Phosphatase 84 U/L (40-110); Anion Gap 11 mmol/L (10-20); BUN (Urea Nitrogen) 18 mg/dL (8.4-25.7); Bilirubin, Total 0.9 mg/dL (0.2-1.2); Calc. Creatinine Clearance 0 mL/min (70-130); Calcium 8.4 mg/dL (7.8-10.44); Carbon Dioxide 23 mmol/L (23-31); Chloride 106 mmol/L (98-107); Estimated GFR 43; Globulin 3.4 g/dL (2.4-3.5); Glucose 150 mg/dL (83-110); Potassium 4.2 mmol/L (3.5-5.1); Protein, Total 6.7 g/dL (5.8-8.1); Sodium 136 mmol/L (136-145)
[2022-08-09 07:39] LABS: Bacteria/HPF 3+ HPF (None Seen); Bilirubin Negative (Negative); Blood, Urine 3+ (Negative); CAUTI Indications for Culture Pelvic or flank pain; Clarity Clear (Clear); Glucose, Urine (Dipstick) 50 mg/dL (Negative); Ketone, Urine Negative (Negative); Leukocyte 500 Leu/uL (Negative); Nitrite 1+ (Negative); Protein, Urine (Dipstick) Negative (Neg-Trace); Renal Epithelial 0-3 HPF (None Seen); Specific Gravity, Urine 1.011 (1.002-1.036); Squamous Epithelial 0-3 HPF (0-3); Urobilinogen Normal mg/dL (Less than 2); WBC/HPF Greater than 50 HPF (0-3)
[2022-08-09 07:41] LABS: Urine Culture Reflex Yes Yes
[2022-08-09] MEDS ORDERED: Cefepime 2 GM VIAL ONE (07:52)
[2022-08-09] MEDS ORDERED: VANCOMYCIN 2 GRAM/500 ML BAG 2 GM in Premix Bag 1 BAG IVPB SCH (08:45)
[2022-08-09] MEDS ORDERED: Ondansetron PF 4 MG/2 ML Vial IVP PRN (08:56)
[2022-08-09] MEDS ORDERED: Ondansetron ODT 4 MG TAB PO PRN (08:56)
[2022-08-09] MEDS ORDERED: Dextrose 5% in Water 1,000 ML IV PRN (09:14)
[2022-08-09] MEDS ORDERED: Glucagon 1 MG/ML KIT IM PRN (09:14)
[2022-08-09] MEDS ORDERED: Dextrose 50% Abboject 50 ML SYRINGE SLOW IVP PRN (09:14)
[2022-08-09] MEDS: HumaLOG 300 UNITS/3 ML VIAL SC PRN (16:16)
[2022-08-09 18:33] VITALS: BMI 45.6
[2022-08-09] MEDS: Cefepime 1 GM in Sodium Chloride 0.9% 100 ML IVPB SCH (19:32)
[2022-08-09] MEDS: Acetaminophen 325 MG TAB PO PRN (20:36)
[2022-08-09 21:53] LABS: SARS-CoV-2 NAA Rapid Test DETECTED (NotDetected)
[2022-08-09] MEDS ORDERED: Albuterol 200 PUFF (6.7GM INHALER) INH PRN (21:55)
[2022-08-09] MEDS ORDERED: REMDESIVIR 200 MG in Sodium Chloride 0.9% 250 ML 210 ML IV SCH (23:00)
[2022-08-10] MEDS: Acetaminophen 325 MG TAB PO PRN (05:18)
[2022-08-10 06:13] LABS: #Eosinphils 0.2 thou/uL (0.0-0.7); #Monocytes 0.9 thou/uL (0.11-0.59); %Basophils 0.3 % (0.0-1.0); %Lymphocytes 11.8 % (21.0-51.0); %Monocytes 9.7 % (0.0-10.0); %Neutrophils 75.2 % (42.0-75.0); Mean Corpuscular HGB CONC 30.5 g/dL (32.0-36.0); Mean Corpuscular Volume 91.9 fl (78.0-98.0); Platelet Count 179 10x3/uL (130-400); RBC Distribution Width 16.4 % (11.5-14.5); Red Blood Cell (RBC) Count 3.21 mill/uL (4.70-6.10); White Blood Cell (WBC) Count 9.3 10x3/uL (4.8-10.8)
[2022-08-10 06:39] LABS: Anion Gap 12 mmol/L (10-20); BUN (Urea Nitrogen) 15 mg/dL (8.4-25.7); Calc. Creatinine Clearance 92 mL/min (70-130); Calcium 8.6 mg/dL (7.8-10.44); Carbon Dioxide 23 mmol/L (23-31); Chloride 105 mmol/L (98-107); Estimated GFR 57; Glucose 136 mg/dL (83-110); Potassium 3.9 mmol/L (3.5-5.1); Sodium 136 mmol/L (136-145)
[2022-08-10] MEDS: Dexamethasone 4 MG TAB PO SCH (10:08)
[2022-08-10] MEDS: Cefepime 1 GM in Sodium Chloride 0.9% 100 ML IVPB SCH ×2 (10:09→21:27)
[2022-08-10] MEDS: HumaLOG 300 UNITS/3 ML VIAL SC PRN ×2 (14:16→21:37)
[2022-08-10] MEDS: REMDESIVIR 100 MG in Sodium Chloride 0.9% 250 ML 230 ML IV SCH (21:28)
[2022-08-11 06:19] LABS: #Monocytes 0.6 thou/uL (0.11-0.59); #Neutrophils 6.2 thou/uL (1.40-6.50); %Basophils 0.1 % (0.0-1.0); %Lymphocytes 13.2 % (21.0-51.0); %Monocytes 7.5 % (0.0-10.0); %Neutrophils 76.6 % (42.0-75.0); Hemoglobin 9.2 g/dL (14.0-18.0); Mean Corpuscular HGB CONC 31.4 g/dL (32.0-36.0); Mean Corpuscular Hemoglobin 28.1 pg (27.0-31.0); Mean Corpuscular Volume 89.6 fl (78.0-98.0); Mean Platelet Volume 10.1 fL (7.4-10.4); Platelet Count 209 10x3/uL (130-400); RBC Distribution Width 16.3 % (11.5-14.5); Red Blood Cell (RBC) Count 3.27 mill/uL (4.70-6.10)
[2022-08-11 06:49] LABS: ALT (SGPT) 9 U/L (8-55); AST (SGOT) 10 U/L (5-34); Albumin 3.2 g/dL (3.4-4.8); Alkaline Phosphatase 82 U/L (40-110); Anion Gap 13 mmol/L (10-20); BUN (Urea Nitrogen) 16 mg/dL (8.4-25.7); Bilirubin, Total 0.4 mg/dL (0.2-1.2); CRP (Inflammatory) 12.17 mg/dL (= or < 0.5); Calc. Creatinine Clearance 94 mL/min (70-130); Calcium 8.7 mg/dL (7.8-10.44); Carbon Dioxide 21 mmol/L (23-31); Chloride 105 mmol/L (98-107); Estimated GFR 60; Globulin 3.5 g/dL (2.4-3.5); Glucose 218 mg/dL (83-110); Potassium 4.1 mmol/L (3.5-5.1); Protein, Total 6.7 g/dL (5.8-8.1); Sodium 135 mmol/L (136-145)
[2022-08-11] MEDS: Cefepime 1 GM in Sodium Chloride 0.9% 100 ML IVPB SCH ×2 (09:14→20:42)
[2022-08-11] MEDS: Dexamethasone 4 MG TAB PO SCH (09:15)
[2022-08-11] MEDS ORDERED: Apixaban 5 MG TAB PO SCH (11:15)
[2022-08-11] MEDS ORDERED: Digoxin 0.125 MG TAB PO SCH (11:15)
[2022-08-11] MEDS: HumaLOG 300 UNITS/3 ML VIAL SC PRN ×2 (13:09→20:44)
[2022-08-11] MEDS: Apixaban 5 MG TAB PO SCH (20:43)
[2022-08-11] MEDS: Atorvastatin Calcium 40 MG TAB PO SCH (20:43)
[2022-08-11] MEDS: Acetaminophen 325 MG TAB PO PRN (20:43)
[2022-08-11] MEDS: Benzonatate 100 MG CAP PO PRN (20:59)
[2022-08-11] MEDS: REMDESIVIR 100 MG in Sodium Chloride 0.9% 250 ML 230 ML IV SCH (21:03)
[2022-08-12] MEDS: Digoxin 0.125 MG TAB PO SCH (08:45)
[2022-08-12] MEDS: Dexamethasone 4 MG TAB PO SCH (08:45)
[2022-08-12] MEDS: Apixaban 5 MG TAB PO SCH ×2 (08:46→19:29)
[2022-08-12] MEDS: glipiZIDE 5 MG TAB PO SCH (08:46)
[2022-08-12] MEDS: Ezetimibe 10 MG TAB PO SCH (08:46)
[2022-08-12] MEDS: Cefepime 1 GM in Sodium Chloride 0.9% 100 ML IVPB SCH ×2 (08:46→19:29)
[2022-08-12 09:29] LABS: #Monocytes 0.5 thou/uL (0.11-0.59); #Neutrophils 6.4 thou/uL (1.40-6.50); %Basophils 0.3 % (0.0-1.0); %Eosinophils 0.4 % (0.0-10.0); %Lymphocytes 22.3 % (21.0-51.0); %Monocytes 5.5 % (0.0-10.0); %Neutrophils 69.3 % (42.0-75.0); Hemoglobin 9.4 g/dL (14.0-18.0); Mean Corpuscular HGB CONC 30.8 g/dL (32.0-36.0); Mean Corpuscular Volume 90.8 fl (78.0-98.0); Mean Platelet Volume 10.1 fL (7.4-10.4); Platelet Count 245 10x3/uL (130-400); RBC Distribution Width 16.3 % (11.5-14.5); Red Blood Cell (RBC) Count 3.36 mill/uL (4.70-6.10); White Blood Cell (WBC) Count 9.2 10x3/uL (4.8-10.8)
[2022-08-12 09:50] LABS: Anion Gap 12 mmol/L (10-20); BUN (Urea Nitrogen) 21 mg/dL (8.4-25.7); Calc. Creatinine Clearance 96 mL/min (70-130); Calcium 8.4 mg/dL (7.8-10.44); Carbon Dioxide 24 mmol/L (23-31); Chloride 105 mmol/L (98-107); Estimated GFR 61; Glucose 165 mg/dL (83-110); Magnesium 2.4 mg/dL (1.6-2.6); Potassium 3.8 mmol/L (3.5-5.1); Sodium 137 mmol/L (136-145)
[2022-08-12] MEDS: HumaLOG 300 UNITS/3 ML VIAL SC PRN ×2 (17:11→20:41)
[2022-08-12] MEDS: Atorvastatin Calcium 40 MG TAB PO SCH (19:29)
[2022-08-12] MEDS: REMDESIVIR 100 MG in Sodium Chloride 0.9% 250 ML 230 ML IV SCH (20:40)
[2022-08-13] MEDS: Apixaban 5 MG TAB PO SCH ×2 (08:29→20:37)
[2022-08-13] MEDS: glipiZIDE 5 MG TAB PO SCH (08:29)
[2022-08-13] MEDS: Dronedarone HCl 400 MG TAB PO SCH ×2 (08:29→17:08)
[2022-08-13] MEDS: Dexamethasone 4 MG TAB PO SCH (08:29)
[2022-08-13] MEDS: Digoxin 0.125 MG TAB PO SCH (08:30)
[2022-08-13] MEDS: Cefepime 1 GM in Sodium Chloride 0.9% 100 ML IVPB SCH ×2 (08:30→19:11)
[2022-08-13] MEDS: Ezetimibe 10 MG TAB PO SCH (08:30)
[2022-08-13] MEDS: HumaLOG 300 UNITS/3 ML VIAL SC PRN ×2 (18:09→20:37)
[2022-08-13] MEDS: REMDESIVIR 100 MG in Sodium Chloride 0.9% 250 ML 230 ML IV SCH (20:37)
[2022-08-13] MEDS: Atorvastatin Calcium 40 MG TAB PO SCH (20:37)
[2022-08-14] MEDS: HumaLOG 300 UNITS/3 ML VIAL SC PRN (05:56)
[2022-08-14 07:09] LABS: Hemoglobin 10.1 g/dL (14.0-18.0); Mean Corpuscular HGB CONC 30.7 g/dL (32.0-36.0); Mean Corpuscular Hemoglobin 28.2 pg (27.0-31.0); Mean Corpuscular Volume 91.9 fl (78.0-98.0); Mean Platelet Volume 9.5 fL (7.4-10.4); Platelet Count 289 10x3/uL (130-400); RBC Distribution Width 15.9 % (11.5-14.5); Red Blood Cell (RBC) Count 3.58 mill/uL (4.70-6.10); White Blood Cell (WBC) Count 14.1 10x3/uL (4.8-10.8)
[2022-08-14 07:16] LABS: Delete Auto Diff?? YES; Manual Diff?? YES
[2022-08-14 07:32] LABS: Anion Gap 15 mmol/L (10-20); BUN (Urea Nitrogen) 26 mg/dL (8.4-25.7); Calc. Creatinine Clearance 102 mL/min (70-130); Calcium 8.4 mg/dL (7.8-10.44); Carbon Dioxide 21 mmol/L (23-31); Chloride 104 mmol/L (98-107); Estimated GFR 65; Glucose 181 mg/dL (83-110); Potassium 3.9 mmol/L (3.5-5.1); Sodium 136 mmol/L (136-145)
[2022-08-14 07:43] LABS: Band 3 % (5-11); CellaVision Operator ID LAB.GE; Lymphocytes 21 % (21-51); Metamyelocyte 1 % (0-0); Monocytes 6 % (0-10); Myelocyte 2 % (0-0); Neutrophil 67 % (42-75); Platelet Adequacy Comment Platelets Normal; Polychromasia SLIGHT = 2-3 cells HPF (0-2); Total Cell Count 101
[2022-08-14] MEDS: Apixaban 5 MG TAB PO SCH (08:57)
[2022-08-14] MEDS: Dexamethasone 4 MG TAB PO SCH (08:57)
[2022-08-14] MEDS: Digoxin 0.125 MG TAB PO SCH (08:57)
[2022-08-14] MEDS: glipiZIDE 5 MG TAB PO SCH (08:57)
[2022-08-14] MEDS: Dronedarone HCl 400 MG TAB PO SCH ×2 (08:57→17:29)
[2022-08-14] MEDS: Cefepime 1 GM in Sodium Chloride 0.9% 100 ML IVPB SCH (08:57)
[2022-08-14] MEDS: Benzonatate 100 MG CAP PO PRN (08:58)
[2022-08-14] MEDS: Ezetimibe 10 MG TAB PO SCH (08:58)
[2022-08-14] MEDS ORDERED: Calcium Carbonate 500 MG ChewTAB PO PRN (09:14)
[2022-08-14 18:39] VITALS: BP 133/86; TEMP 98.3
== END 2022-08-14 20:18 | disposition home or self-care (01) | DRG 177 ==
LOC: ERS 04:41 → SURG A 09:28 → T4-A 08-10 18:39
PROVIDERS: ADMIT Hospitalist; ATTEND Hospitalist
PROC: XW033E5 Introduction of Remdesivir Anti-infective into Peripheral Vein, Percutaneous Approach, New Technology Group 5 (ICD-10-PCS; principal; 2022-08-09)
PROC: 8E0ZXY6 Isolation (ICD-10-PCS; 2022-08-09)
DX: U07.1 COVID-19 (principal); J12.82 Pneumonia due to coronavirus disease 2019; J96.01 Acute respiratory failure with hypoxia; N39.0 Urinary tract infection, site not specified; Z68.42 Body mass index [BMI] 45.0-49.9, adult; B96.5 Pseudomonas (aeruginosa) (mallei) (pseudomallei) as the cause of diseases classified elsewhere; G47.33 Obstructive sleep apnea (adult) (pediatric); E03.9 Hypothyroidism, unspecified; I48.91 Unspecified atrial fibrillation; I10 Essential (primary) hypertension; E78.5 Hyperlipidemia, unspecified; E11.9 Type 2 diabetes mellitus without complications; Z79.899 Other long term (current) drug therapy; Z91.09 Other allergy status, other than to drugs and biological substances; Z88.6 Allergy status to analgesic agent; Z91.040 Latex allergy status; I25.2 Old myocardial infarction; Z79.01 Long term (current) use of anticoagulants; Z82.49 Family history of ischemic heart disease and other diseases of the circulatory system; Z87.891 Personal history of nicotine dependence; E66.01 Morbid (severe) obesity due to excess calories
CPT/HCPCS: 36415; 36416; 70450; 71045; 72125; 72128; 72131; 80048; 80053; 81001; 82728; 83735; 85025; 86140; 87040; 87077; 87086; 87186; 93005; 93970; 96365; 96375; J0248; J0692; J1815; J3370; J3490; J7050; J8540; U0002

== ENCOUNTER 2022-12-21 10:47 | Outpatient (CLI) | payer MEDICARE | END 2022-12-21 10:48 | disposition home or self-care (01) | LOC: BICRAD 10:47 | PROVIDERS: ATTEND Internal Medicine | DX: I10 Essential (primary) hypertension (principal); R06.02 Shortness of breath | CPT/HCPCS: 36415; 71046; 80053; 80061; 82306; 83540; 84439; 84443; 85025 ==

== ENCOUNTER 2023-11-29 04:43 | Emergency (ER) | payer MEDICARE ==
[2023-11-29 05:51] LABS: #Basophils 0.06 10x3/uL (0.0-0.2); %Basophils 0.4 % (0.0-1.0); %Eosinophils 0.6 % (0.0-10.0); %Lymphocytes 10.5 % (21.0-51.0); %Monocytes 5.4 % (0.0-10.0); %Neutrophils 81.8 % (42.0-75.0); Hematocrit 38.1 % (42.0-52.0); Hemoglobin 12.1 g/dL (14.0-18.0); Mean Corpuscular HGB CONC 31.8 g/dL (32.0-36.0); Mean Corpuscular Hemoglobin 32.1 pg (27.0-31.0); Mean Corpuscular Volume 101.1 fL (78.0-98.0); Mean Platelet Volume 9.9 fL (7.4-10.4); Platelet Count 240 10x3/uL (130-400); RBC Distribution Width 14.9 % (11.5-14.5); Red Blood Cell (RBC) Count 3.77 mill/uL (4.70-6.10)
[2023-11-29 06:14] LABS: ALT (SGPT) 11 U/L (8-55); AST (SGOT) 16 U/L (5-34); Albumin 3.3 g/dL (3.4-4.8); Alkaline Phosphatase 95 U/L (40-110); Anion Gap 14 mmol/L (10-20); BUN (Urea Nitrogen) 17 mg/dL (8.4-25.7); Bilirubin, Total 0.6 mg/dL (0.2-1.2); Calc. Creatinine Clearance 0 mL/min (70-130); Calcium 8.8 mg/dL (7.8-10.44); Carbon Dioxide 18 mmol/L (23-31); Chloride 108 mmol/L (98-107); Estimated GFR 52; Glucose 142 mg/dL (83-110); Lipase 23 U/L (8-78); Magnesium 2.1 mg/dL (1.6-2.6); Potassium 4.3 mmol/L (3.5-5.1); Protein, Total 7.3 g/dL (5.8-8.1); Sodium 136 mmol/L (136-145)
[2023-11-29] MEDS ORDERED: Piperacillin/Tazobactam 3.375 GM VIAL ONE (06:25)
[2023-11-29] MEDS ORDERED: Sodium Chloride 0.9% 100 ML ONE (06:25)
[2023-11-29] MEDS ORDERED: Acetaminophen 500 MG TAB ONE (07:26)
[2023-11-29 08:45] LABS: Lactic Acid 1.16 mmol/L (0.5-2.2)
[2023-11-29 11:24] LABS: Bacteria/HPF 2+ HPF (None Seen); Bilirubin Negative (Negative); Blood, Urine 1+ (Negative); CAUTI Indications for Culture Dysuria,urgency,freq; Clarity Clear (Clear); Glucose, Urine (Dipstick) Greater than 1000 mg/dL (Negative); Ketone, Urine Negative (Negative); Leukocyte 75 Leu/uL (Negative); Nitrite 2+ (Negative); Protein, Urine (Dipstick) Negative (Neg-Trace); Specific Gravity, Urine 1.022 (1.002-1.036); Squamous Epithelial None Seen HPF (0-3); Urobilinogen Normal mg/dL (Less than 2)
[2023-11-29 11:25] LABS: Urine Culture Reflex Yes Yes
== END 2023-11-29 12:28 | disposition home or self-care (01) ==
LOC: ERS 04:43
DX: N39.0 Urinary tract infection, site not specified (principal); E86.0 Dehydration; K11.8 Other diseases of salivary glands; I25.2 Old myocardial infarction; I11.0 Hypertensive heart disease with heart failure; I50.9 Heart failure, unspecified
CPT/HCPCS: 36415; 70450; 71045; 72125; 80053; 81001; 83605; 83690; 83735; 83880; 85025; 87040; 87086; 93005; J2543

== ENCOUNTER 2023-11-29 21:26 | Emergency (ER) | payer MEDICARE ==
[2023-11-29 22:53] LABS: #Basophils 0.03 10x3/uL (0.0-0.2); %Basophils 0.2 % (0.0-1.0); %Eosinophils 0.8 % (0.0-10.0); %Lymphocytes 14.1 % (21.0-51.0); %Monocytes 7.2 % (0.0-10.0); %Neutrophils 76.8 % (42.0-75.0); Hematocrit 32.9 % (42.0-52.0); Hemoglobin 10.3 g/dL (14.0-18.0); Mean Corpuscular HGB CONC 31.3 g/dL (32.0-36.0); Mean Corpuscular Hemoglobin 32.1 pg (27.0-31.0); Mean Corpuscular Volume 102.5 fL (78.0-98.0); Mean Platelet Volume 9.5 fL (7.4-10.4); Platelet Count 227 10x3/uL (130-400); RBC Distribution Width 14.8 % (11.5-14.5); Red Blood Cell (RBC) Count 3.21 mill/uL (4.70-6.10)
[2023-11-29] MEDS ORDERED: Nitrofurantoin Monohyd/M-Cryst 100 MG CAP ONE (23:56)
== END 2023-11-30 00:03 | disposition home or self-care (01) ==
LOC: ERS 21:26
DX: N39.0 Urinary tract infection, site not specified (principal); I10 Essential (primary) hypertension; E03.9 Hypothyroidism, unspecified; I48.91 Unspecified atrial fibrillation; E78.5 Hyperlipidemia, unspecified; I25.2 Old myocardial infarction; Z79.01 Long term (current) use of anticoagulants; Z79.82 Long term (current) use of aspirin; Z79.84 Long term (current) use of oral hypoglycemic drugs; Z79.899 Other long term (current) drug therapy
CPT/HCPCS: 70450; 71045; 72125; 80053; 81001; 83605; 83690; 83735; 83880; 85025 ×2; 87040; 87086; 93005; 99284; J2543; 36415; 87077; 87186

== ENCOUNTER 2023-11-30 15:36 | Inpatient (IN) | payer MEDICARE ==
[~2023-11-30 15:36] MED LIST changes: -ISOVUE-370 76%-LOCM 1 ML ONE; +Iopamidol-370 76% 500 ML MDV (1 ML CHARGE) ONE
[2023-11-30] MEDS ORDERED: Morphine 2 MG/ML VIAL ONE (16:22)
[2023-11-30] MEDS ORDERED: Sodium Chloride 0.9% 100 ML ONE (16:22)
[2023-11-30] MEDS ORDERED: cefTRIAXone (ROCEPHIN) 1 GM VIAL ONE (16:23)
[2023-11-30 17:14] LABS: #Basophils 0.03 10x3/uL (0.0-0.2); %Basophils 0.2 % (0.0-1.0); %Eosinophils 0.6 % (0.0-10.0); %Lymphocytes 10.2 % (21.0-51.0); %Monocytes 6.6 % (0.0-10.0); %Neutrophils 81.4 % (42.0-75.0); Hematocrit 31.8 % (42.0-52.0); Hemoglobin 9.9 g/dL (14.0-18.0); Mean Corpuscular HGB CONC 31.1 g/dL (32.0-36.0); Mean Corpuscular Hemoglobin 31.2 pg (27.0-31.0); Mean Corpuscular Volume 100.3 fL (78.0-98.0); Mean Platelet Volume 9.5 fL (7.4-10.4); Platelet Count 205 10x3/uL (130-400); RBC Distribution Width 14.6 % (11.5-14.5); Red Blood Cell (RBC) Count 3.17 mill/uL (4.70-6.10)
[2023-11-30 17:26] LABS: INR-International Normal Ratio 1.4; Prothrombin Time 17.3 sec (12.0-14.7)
[2023-11-30 17:28] LABS: Acetaminophen Less than 10 mcg/mL (Less than 10); Alcohol Less than 10.0 mg/dL (Less than 10); Salicylate Less than 8.0 mg/dL (Less than 8.0)
[2023-11-30 17:29] LABS: ALT (SGPT) 9 U/L (8-55); AST (SGOT) 14 U/L (5-34); Alkaline Phosphatase 78 U/L (40-110); Anion Gap 12 mmol/L (10-20); BUN (Urea Nitrogen) 15 mg/dL (8.4-25.7); Bilirubin, Total 0.8 mg/dL (0.2-1.2); Calc. Creatinine Clearance 0 mL/min (70-130); Calcium 8.5 mg/dL (7.8-10.44); Carbon Dioxide 20 mmol/L (23-31); Chloride 105 mmol/L (98-107); Estimated GFR 64; Globulin 3.3 g/dL (2.4-3.5); Glucose 117 mg/dL (83-110); Potassium 4.3 mmol/L (3.5-5.1); Protein, Total 6.3 g/dL (5.8-8.1); Sodium 133 mmol/L (136-145)
[2023-11-30 17:33] LABS: Troponin I 0.016 ng/mL (< 0.028)
[2023-11-30] MEDS ORDERED: Ondansetron PF 4 MG/2 ML Vial IVP PRN (19:05)
[2023-11-30] MEDS ORDERED: FLU (Fluad Triv) TS24-25 (65UP)/MF59C/PF 45 MCG/0.5 ML Syringe IM ONE (20:45)
[2023-11-30] MEDS: Cefepime 2 GM in Sodium Chloride 0.9% 100 ML IVPB SCH (21:53)
[2023-11-30] MEDS: Atorvastatin Calcium 40 MG TAB PO SCH (21:54)
[2023-11-30] MEDS: Dronedarone HCl 400 MG TAB PO SCH (21:54)
[2023-11-30] MEDS: Famotidine 20 MG TAB PO SCH (21:54)
[2023-11-30] MEDS: Apixaban 5 MG TAB PO SCH (21:54)
[2023-11-30] MEDS: traMADol HCl 50 MG TAB PO PRN (21:55)
[2023-11-30 23:21] VITALS: BMI 47.6
[2023-12-01 05:44] LABS: #Basophils 0.03 10x3/uL (0.0-0.2); %Basophils 0.3 % (0.0-1.0); %Eosinophils 3.1 % (0.0-10.0); %Lymphocytes 15.7 % (21.0-51.0); Hematocrit 31.7 % (42.0-52.0); Hemoglobin 10.2 g/dL (14.0-18.0); Mean Corpuscular HGB CONC 32.2 g/dL (32.0-36.0); Mean Corpuscular Hemoglobin 31.6 pg (27.0-31.0); Mean Corpuscular Volume 98.1 fL (78.0-98.0); Platelet Count 217 10x3/uL (130-400); RBC Distribution Width 14.6 % (11.5-14.5); Red Blood Cell (RBC) Count 3.23 mill/uL (4.70-6.10)
[2023-12-01 06:03] LABS: ALT (SGPT) 9 U/L (8-55); AST (SGOT) 12 U/L (5-34); Albumin 2.9 g/dL (3.4-4.8); Alkaline Phosphatase 76 U/L (40-110); Anion Gap 13 mmol/L (10-20); BUN (Urea Nitrogen) 14 mg/dL (8.4-25.7); Bilirubin, Total 0.6 mg/dL (0.2-1.2); Calc. Creatinine Clearance 104 mL/min (70-130); Calcium 8.4 mg/dL (7.8-10.44); Carbon Dioxide 20 mmol/L (23-31); Chloride 106 mmol/L (98-107); Estimated GFR 64; Globulin 3.3 g/dL (2.4-3.5); Glucose 93 mg/dL (83-110); Potassium 3.8 mmol/L (3.5-5.1); Protein, Total 6.2 g/dL (5.8-8.1); Sodium 135 mmol/L (136-145)
[2023-12-01] MEDS: Levothyroxine 150 MCG TAB PO SCH (06:16)
[2023-12-01] MEDS: Cefepime 2 GM in Sodium Chloride 0.9% 100 ML IVPB SCH (10:56)
[2023-12-01] MEDS: Loratadine 10 MG TAB PO SCH (10:57)
[2023-12-01] MEDS: Ferrous Sulfate 325 MG TAB PO SCH (10:58)
[2023-12-01] MEDS: Ezetimibe 10 MG TAB PO SCH (10:59)
[2023-12-01] MEDS: Digoxin 0.125 MG TAB PO SCH (11:00)
[2023-12-01] MEDS: Cyanocobalamin (Vitamin B-12) 1,000 MCG TAB PO SCH (12:50)
[2023-12-01] MEDS: Floranex 1 GM Packet PO SCH (12:51)
[2023-12-01] MEDS ORDERED: cefTRIAXone\\ROCEPHIN 1 GM in Sodium Chloride 0.9% 100 ML IVPB SCH (16:00)
[2023-12-01] MEDS ORDERED: Dextrose 5% in Water 1,000 ML IV PRN (16:09)
[2023-12-01] MEDS ORDERED: Dextrose 50% Abboject 50 ML SYRINGE SLOW IVP PRN (16:09)
[2023-12-01] MEDS ORDERED: Glucagon 1 MG/ML KIT IM PRN (16:09)
[2023-12-01] MEDS: Tetrahydrozoline 0.05% OPTH 15 ML BOT EA EYE SCH (17:58)
[2023-12-02] MEDS: Melatonin 3 MG TAB PO SCH (02:17)
[2023-12-02 07:33] LABS: #Basophils 0.03 10x3/uL (0.0-0.2); %Basophils 0.4 % (0.0-1.0); %Eosinophils 4.2 % (0.0-10.0); %Lymphocytes 14.2 % (21.0-51.0); %Monocytes 7.2 % (0.0-10.0); %Neutrophils 72.8 % (42.0-75.0); Hematocrit 31.9 % (42.0-52.0); Hemoglobin 10.5 g/dL (14.0-18.0); Mean Corpuscular HGB CONC 32.9 g/dL (32.0-36.0); Mean Corpuscular Hemoglobin 31.8 pg (27.0-31.0); Mean Corpuscular Volume 96.7 fL (78.0-98.0); Mean Platelet Volume 9.8 fL (7.4-10.4); Platelet Count 216 10x3/uL (130-400); RBC Distribution Width 14.2 % (11.5-14.5)
[2023-12-02 07:54] LABS: Anion Gap 13 mmol/L (10-20); BUN (Urea Nitrogen) 12 mg/dL (8.4-25.7); Calc. Creatinine Clearance 115 mL/min (70-130); Calcium 8.7 mg/dL (7.8-10.44); Carbon Dioxide 19 mmol/L (23-31); Chloride 104 mmol/L (98-107); Estimated GFR 72; Glucose 126 mg/dL (83-110); Potassium 3.8 mmol/L (3.5-5.1); Sodium 132 mmol/L (136-145)
[2023-12-02] MEDS: Ondansetron ODT 4 MG TAB PO PRN (09:21)
[2023-12-02] MEDS: Losartan 25 MG TAB PO SCH (09:26)
[2023-12-02] MEDS: Tetrahydrozoline 0.05% OPTH 15 ML BOT EA EYE SCH (09:30)
[2023-12-02] MEDS: Insulin Lispro 100 UNIT/ML 10 ML VIAL SC PRN (12:36)
[2023-12-02] MEDS: Acetaminophen 325 MG TAB PO PRN (17:35)
[2023-12-02] MEDS: Diclofenac 1% 50 GM TOPICAL GEL TP SCH (17:36)
[2023-12-02] MEDS: Senokot S 8.6-50 MG TAB PO SCH (21:21)
[2023-12-03 06:42] LABS: #Basophils 0.03 10x3/uL (0.0-0.2); %Basophils 0.3 % (0.0-1.0); %Eosinophils 4.3 % (0.0-10.0); %Lymphocytes 14.3 % (21.0-51.0); %Monocytes 7.2 % (0.0-10.0); %Neutrophils 72.9 % (42.0-75.0); Hemoglobin 11.5 g/dL (14.0-18.0); Mean Corpuscular HGB CONC 32.9 g/dL (32.0-36.0); Mean Corpuscular Hemoglobin 31.6 pg (27.0-31.0); Mean Corpuscular Volume 96.2 fL (78.0-98.0); Mean Platelet Volume 11.5 fL (7.4-10.4); Platelet Count 171 10x3/uL (130-400); RBC Distribution Width 14.2 % (11.5-14.5); Red Blood Cell (RBC) Count 3.64 mill/uL (4.70-6.10)
[2023-12-03 06:43] LABS: Anion Gap 16 mmol/L (10-20); BUN (Urea Nitrogen) 13 mg/dL (8.4-25.7); Calc. Creatinine Clearance 114 mL/min (70-130); Carbon Dioxide 19 mmol/L (23-31); Chloride 103 mmol/L (98-107); Estimated GFR 71; Glucose 136 mg/dL (83-110); Potassium 4.5 mmol/L (3.5-5.1); Sodium 133 mmol/L (136-145)
[2023-12-04 05:35] LABS: #Basophils 0.05 10x3/uL (0.0-0.2); %Basophils 0.5 % (0.0-1.0); %Eosinophils 3.7 % (0.0-10.0); %Lymphocytes 14.9 % (21.0-51.0); %Monocytes 6.6 % (0.0-10.0); %Neutrophils 73.3 % (42.0-75.0); Hematocrit 35.9 % (42.0-52.0); Hemoglobin 11.1 g/dL (14.0-18.0); Mean Corpuscular HGB CONC 30.9 g/dL (32.0-36.0); Mean Corpuscular Hemoglobin 31.2 pg (27.0-31.0); Mean Corpuscular Volume 100.8 fL (78.0-98.0); Mean Platelet Volume 9.8 fL (7.4-10.4); Platelet Count 282 10x3/uL (130-400); RBC Distribution Width 14.2 % (11.5-14.5); Red Blood Cell (RBC) Count 3.56 mill/uL (4.70-6.10)
[2023-12-04 05:40] LABS: Anion Gap 14 mmol/L (10-20); BUN (Urea Nitrogen) 15 mg/dL (8.4-25.7); Calc. Creatinine Clearance 96 mL/min (70-130); Calcium 8.9 mg/dL (7.8-10.44); Carbon Dioxide 23 mmol/L (23-31); Chloride 100 mmol/L (98-107); Estimated GFR 59; Glucose 167 mg/dL (83-110); Potassium 4.4 mmol/L (3.5-5.1); Sodium 133 mmol/L (136-145)
[2023-12-04] MEDS: Polyethylene Glycol 3350 17 GM Packet PO PRN (08:39)
[2023-12-04] MEDS: Dronedarone HCl 400 MG TAB PO SCH (17:25)
[2023-12-04] MEDS ORDERED: Cefepime 1 GM in Sodium Chloride 0.9% 100 ML IVPB SCH (22:00)
[2023-12-05] MEDS: Ciprofloxacin 500 MG TAB PO SCH (05:41)
[2023-12-05] MEDS ORDERED: LevoFLOXacin 750 MG TAB PO SCH (06:00)
[2023-12-05] MEDS: Ferrous Sulfate 325 MG TAB PO SCH (08:52)
[2023-12-05] MEDS: Bisacodyl 10 MG SUPP PR PRN (14:47)
[2023-12-06 08:52] LABS: #Basophils 0.06 10x3/uL (0.0-0.2); %Basophils 0.4 % (0.0-1.0); %Eosinophils 3.2 % (0.0-10.0); %Lymphocytes 13.7 % (21.0-51.0); %Monocytes 6.6 % (0.0-10.0); %Neutrophils 75.3 % (42.0-75.0); Hematocrit 36.8 % (42.0-52.0); Hemoglobin 11.8 g/dL (14.0-18.0); Mean Corpuscular HGB CONC 32.1 g/dL (32.0-36.0); Mean Corpuscular Hemoglobin 31.5 pg (27.0-31.0); Mean Corpuscular Volume 98.1 fL (78.0-98.0); Mean Platelet Volume 9.2 fL (7.4-10.4); Platelet Count 278 10x3/uL (130-400); Red Blood Cell (RBC) Count 3.75 mill/uL (4.70-6.10)
[2023-12-06 09:07] LABS: Anion Gap 13 mmol/L (10-20); BUN (Urea Nitrogen) 20 mg/dL (8.4-25.7); Calc. Creatinine Clearance 109 mL/min (70-130); Calcium 8.9 mg/dL (7.8-10.44); Carbon Dioxide 23 mmol/L (23-31); Chloride 103 mmol/L (98-107); Estimated GFR 68; Glucose 142 mg/dL (83-110); Potassium 4.4 mmol/L (3.5-5.1); Sodium 135 mmol/L (136-145)
[2023-12-06 14:27] LABS: #Basophils 0.05 10x3/uL (0.0-0.2); %Basophils 0.4 % (0.0-1.0); %Eosinophils 2.9 % (0.0-10.0); %Lymphocytes 12.9 % (21.0-51.0); %Monocytes 7.3 % (0.0-10.0); %Neutrophils 75.5 % (42.0-75.0); Hematocrit 35.8 % (42.0-52.0); Hemoglobin 11.4 g/dL (14.0-18.0); Mean Corpuscular HGB CONC 31.8 g/dL (32.0-36.0); Mean Corpuscular Hemoglobin 31.4 pg (27.0-31.0); Mean Corpuscular Volume 98.6 fL (78.0-98.0); Mean Platelet Volume 9.4 fL (7.4-10.4); Platelet Count 299 10x3/uL (130-400); RBC Distribution Width 14.1 % (11.5-14.5); Red Blood Cell (RBC) Count 3.63 mill/uL (4.70-6.10)
[2023-12-07 05:03] LABS: #Basophils 0.05 10x3/uL (0.0-0.2); %Basophils 0.4 % (0.0-1.0); %Eosinophils 3.6 % (0.0-10.0); %Lymphocytes 16.9 % (21.0-51.0); %Monocytes 7.9 % (0.0-10.0); Hematocrit 37.4 % (42.0-52.0); Hemoglobin 11.8 g/dL (14.0-18.0); Mean Corpuscular HGB CONC 31.6 g/dL (32.0-36.0); Mean Corpuscular Hemoglobin 30.8 pg (27.0-31.0); Mean Corpuscular Volume 97.7 fL (78.0-98.0); Mean Platelet Volume 9.9 fL (7.4-10.4); Platelet Count 300 10x3/uL (130-400); Red Blood Cell (RBC) Count 3.83 mill/uL (4.70-6.10)
[2023-12-07 05:45] LABS: Anion Gap 15 mmol/L (10-20); BUN (Urea Nitrogen) 23 mg/dL (8.4-25.7); Calc. Creatinine Clearance 91 mL/min (70-130); Calcium 9.1 mg/dL (7.8-10.44); Carbon Dioxide 24 mmol/L (23-31); Chloride 101 mmol/L (98-107); Estimated GFR 55; Glucose 154 mg/dL (83-110); Potassium 4.2 mmol/L (3.5-5.1); Sodium 136 mmol/L (136-145)
[2023-12-07 19:35] LABS: Bacteria/HPF None Seen HPF (None Seen); Bilirubin Negative (Negative); Blood, Urine 1+ (Negative); CAUTI Indications for Culture Alt mental st,lethar; Clarity Clear (Clear); Glucose, Urine (Dipstick) 30 mg/dL (Negative); Ketone, Urine Negative (Negative); Leukocyte 250 Leu/uL (Negative); Nitrite Negative (Negative); Protein, Urine (Dipstick) 10 mg/dL (Neg-Trace); Specific Gravity, Urine 1.018 (1.002-1.036); Squamous Epithelial 0-3 HPF (0-3); Urobilinogen Normal mg/dL (Less than 2)
[2023-12-07 19:39] LABS: Urine Culture Reflex Yes Yes
[2023-12-08 04:23] LABS: #Basophils 0.04 10x3/uL (0.0-0.2); %Basophils 0.4 % (0.0-1.0); %Eosinophils 4.1 % (0.0-10.0); %Lymphocytes 16.5 % (21.0-51.0); %Monocytes 8.2 % (0.0-10.0); %Neutrophils 69.4 % (42.0-75.0); Hematocrit 35.6 % (42.0-52.0); Hemoglobin 11.4 g/dL (14.0-18.0); Mean Corpuscular Hemoglobin 30.9 pg (27.0-31.0); Mean Corpuscular Volume 96.5 fL (78.0-98.0); Mean Platelet Volume 9.7 fL (7.4-10.4); Platelet Count 278 10x3/uL (130-400); RBC Distribution Width 13.8 % (11.5-14.5); Red Blood Cell (RBC) Count 3.69 mill/uL (4.70-6.10)
[2023-12-08 04:49] LABS: Anion Gap 13 mmol/L (10-20); BUN (Urea Nitrogen) 25 mg/dL (8.4-25.7); Calc. Creatinine Clearance 99 mL/min (70-130); Calcium 8.7 mg/dL (7.8-10.44); Carbon Dioxide 23 mmol/L (23-31); Chloride 102 mmol/L (98-107); Estimated GFR 60; Glucose 152 mg/dL (83-110); Potassium 4.1 mmol/L (3.5-5.1); Sodium 134 mmol/L (136-145)
[2023-12-08 15:20] VITALS: BMI 47.6
[2023-12-09 04:32] LABS: #Basophils 0.06 10x3/uL (0.0-0.2); %Basophils 0.5 % (0.0-1.0); %Eosinophils 4.3 % (0.0-10.0); %Lymphocytes 18.6 % (21.0-51.0); %Monocytes 7.2 % (0.0-10.0); %Neutrophils 68.3 % (42.0-75.0); Hematocrit 36.4 % (42.0-52.0); Hemoglobin 11.4 g/dL (14.0-18.0); Mean Corpuscular HGB CONC 31.3 g/dL (32.0-36.0); Mean Corpuscular Hemoglobin 30.7 pg (27.0-31.0); Mean Corpuscular Volume 98.1 fL (78.0-98.0); Mean Platelet Volume 9.6 fL (7.4-10.4); Platelet Count 292 10x3/uL (130-400); RBC Distribution Width 13.8 % (11.5-14.5); Red Blood Cell (RBC) Count 3.71 mill/uL (4.70-6.10)
[2023-12-09 04:57] LABS: Anion Gap 12 mmol/L (10-20); BUN (Urea Nitrogen) 23 mg/dL (8.4-25.7); Calc. Creatinine Clearance 97 mL/min (70-130); Calcium 8.6 mg/dL (7.8-10.44); Carbon Dioxide 23 mmol/L (23-31); Chloride 103 mmol/L (98-107); Estimated GFR 59; Glucose 156 mg/dL (83-110); Potassium 4.2 mmol/L (3.5-5.1); Sodium 134 mmol/L (136-145)
[2023-12-10 05:39] LABS: #Basophils 0.05 10x3/uL (0.0-0.2); %Basophils 0.4 % (0.0-1.0); %Eosinophils 4.3 % (0.0-10.0); %Monocytes 7.8 % (0.0-10.0); %Neutrophils 67.4 % (42.0-75.0); Hematocrit 36.3 % (42.0-52.0); Hemoglobin 11.7 g/dL (14.0-18.0); Mean Corpuscular HGB CONC 32.2 g/dL (32.0-36.0); Mean Corpuscular Hemoglobin 31.2 pg (27.0-31.0); Mean Corpuscular Volume 96.8 fL (78.0-98.0); Mean Platelet Volume 9.7 fL (7.4-10.4); Platelet Count 284 10x3/uL (130-400); RBC Distribution Width 13.7 % (11.5-14.5); Red Blood Cell (RBC) Count 3.75 mill/uL (4.70-6.10)
[2023-12-10 06:02] LABS: Anion Gap 13 mmol/L (10-20); BUN (Urea Nitrogen) 19 mg/dL (8.4-25.7); Calc. Creatinine Clearance 109 mL/min (70-130); Calcium 8.5 mg/dL (7.8-10.44); Carbon Dioxide 23 mmol/L (23-31); Chloride 105 mmol/L (98-107); Estimated GFR 68; Glucose 209 mg/dL (83-110); Potassium 4.1 mmol/L (3.5-5.1); Sodium 137 mmol/L (136-145)
[2023-12-10 08:38] VITALS: BP 111/68; TEMP 97.7
== END 2023-12-10 16:57 | DRG 872 ==
LOC: ERS 15:36 → MSONC 18:29 → OBSVTOIN 12-02 17:20
PROVIDERS: ADMIT Internal Medicine; ATTEND Internal Medicine
PROC: 3E03329 Introduction of Other Anti-infective into Peripheral Vein, Percutaneous Approach (ICD-10-PCS; principal; 2023-11-30)
PROC: 5A09357 Assistance with Respiratory Ventilation, Less than 24 Consecutive Hours, Continuous Positive Airway Pressure (ICD-10-PCS; 2023-12-03)
DX: A41.52 Sepsis due to Pseudomonas (principal); N39.0 Urinary tract infection, site not specified; I10 Essential (primary) hypertension; E78.5 Hyperlipidemia, unspecified; D64.9 Anemia, unspecified; Z91.040 Latex allergy status; Z88.5 Allergy status to narcotic agent; E11.40 Type 2 diabetes mellitus with diabetic neuropathy, unspecified; E03.9 Hypothyroidism, unspecified; K59.00 Constipation, unspecified; R41.0 Disorientation, unspecified; I48.0 Paroxysmal atrial fibrillation; H10.10 Acute atopic conjunctivitis, unspecified eye; W19.XXXA Unspecified fall, initial encounter; I48.91 Unspecified atrial fibrillation; I25.2 Old myocardial infarction; Z79.01 Long term (current) use of anticoagulants; Z79.82 Long term (current) use of aspirin; Z79.84 Long term (current) use of oral hypoglycemic drugs; Z79.899 Other long term (current) drug therapy
CPT/HCPCS: 36415; 36416; 70450; 71045; 71260; 72125; 74018; 74177; 80048; 80053; 80307; 81001; 83605; 83690; 83735; 83880; 84443; 84484; 85025; 85610; 85730; 87040; 87077; 87086; 87186; 93005; 93010; 96365; 96367; 96374; 96375; 96376; 99284; G0378; J0692; J0696; J1815; J2272; J2543; Q0162; Q9967